=== PATIENT | male | born 1975 | race Caucasian/White ===

== ENCOUNTER 2018-01-21 12:28 | Emergency (ER) | payer BC ==
[2018-01-21] MEDS ORDERED: HYDROCODONE/APAP 7.5/325 MG TAB ONE (13:01)
--- NOTE | 2018-01-21 13:32 | RAD REPORT ---
EXAM DESCRIPTION: CT - [id number] - 01/21/2018 1:22 pm CLINICAL HISTORY: Trauma, head and neck injury. COMPARISON: None. TECHNIQUE: Axial 5 mm thick images of the head were obtained. Axial 2 mm thick images of the cervical spine were obtained with sagittal and coronal reconstruction images generated and reviewed. All CT scans are performed using dose optimization technique as appropriate and may include automated exposure control or mA/KV adjustment according to patient size. FINDINGS: CT HEAD WITHOUT CONTRAST: No acute hemorrhage, hydrocephalus or extra-axial collection is identified.No areas of brain edema or midline shift. The paranasal sinuses and mastoids are clear.The calvarium is intact. CT CERVICAL SPINE WITHOUT CONTRAST: No fracture or subluxation.No prevertebral soft tissues swelling is identified. IMPRESSION: No acute intracranial or cervical spine findings.
--- NOTE | 2018-01-21 14:00 | RAD REPORT ---
EXAM DESCRIPTION: RAD - Shoulder Left 2 View - 01/21/2018 1:45 pm CLINICAL HISTORY: Pain left shoulder. COMPARISON: None. FINDINGS: Mild arthritic changes are present. No acute fracture or dislocation seen. Mild subacromia l outlet narrowing is present.
[2018-01-21] MEDS ORDERED: KETOROLAC 30 MG/ML INJ ONE (14:17)
--- NOTE | 2018-01-21 14:19 | ER ---
Nurse's Notes [facility] Name: Toro Mcghee Age: 42 yrs Sex: Male : 1975 Arrival Date: 01/21/2018 Time: 12:31 Bed 20 Private MD: Yoan Vazquez Diagnosis: Other slipping, tripping and stumbling and falls;Hypertensive heart disease;Pain in left shoulder-from fall;Neck Pain from fall Presentation: 01/21 12:43 Presenting complaint: Patient states: pt has chronic emiliano shoulder pain, has been to see iw ortho in past, pt fell yesterday and aggravated shoulder pain, radiates to fingers, also has intermittent numbness to arms, also has headache and neck pain that's been worse after the fall, denies hitting head, fell forward onto outstretched arms, pt states he can't sleep, can't lay down. Transition of care: patient was not received from another setting of care. Onset of symptoms was December 2017. Initial Sepsis Screen: Does the patient meet any 2 criteria? No. Patient's initial sepsis screen is negative. Does the patient have a suspected source of infection? No. Patient's initial sepsis screen is negative. Care prior to arrival: None. 12:43 Method Of Arrival: Ambulatory iw 12:43 Acuity: GIGI 3 iw Triage Assessment: 13:10 Pain: Pain began Also complains of no other associated symptoms. iw 13:10 Headache History: Denies prior headaches. iw Historical: - Allergies: 12:48 NKA; iw - Home Meds: 12:48 Metoprolol Tartrate Oral [Active]; losartan Oral [Active]; Simvastatin Oral [Active]; iw - PMHx: 12:48 abdominal hernia; Hypertension; Hyperlipidemia; iw - PSHx: 12:48 Appendectomy; Tonsillectomy; iw - Immunization history:: Adult Immunizations unknown. - Social history:: Smoking status: unknown. Screenin:14 Abuse screen: Denies threats or abuse. Nutritional screening: No deficits noted. em Tuberculosis screening: No symptoms or risk factors identified. Fall Risk None identified. Assessment: 12:58 General: Appears in no apparent distress. uncomfortable, Behavior is calm, cooperative, em Reports having chronic shoulder problems, but fell yesterday, c/o neck pain that shoots down emiliano arms and into finger, denies hitting head or LOC. Pain: Complains of pain in neck Pain currently is 8 out of 10 on a pain scale. Quality of pain is described as sharp, shooting. Neuro: Level of Consciousness is awake, alert, obeys commands, Oriented to person, place, time, situation. Cardiovascular: Capillary refill < 3 seconds Patient's skin is warm and dry. Respiratory: Airway is patent Respiratory effort is even, unlabored, Respiratory pattern is regular, symmetrical. GI: Abdomen is flat. : No signs and/or symptoms were reported regarding the genitourinary system. EENT: No signs and/or symptoms were reported regarding the EENT system. Derm: Skin is intact, Skin is pink, warm \T\ dry. Musculoskeletal: Range of motion: intact in all extremities. Injury Description: fall injury. 13:10 Reassessment: Patient appears in no apparent distress at this time. I agree with above iw assessment by Cristopher Mcdonald LVN. 13:55 Reassessment: Patient appears in no apparent distress at this time. Patient and/or em family updated on plan of care and expected duration. Pain level reassessed. Patient is alert, oriented x 3, equal unlabored respirations, skin warm/dry/pink. Patient states feeling better. Patient states symptoms have improved. Vital Signs: 12:49 BP 158 / 115; Pulse 80; Resp 16; Temp 98.2; Pulse Ox 96% on R/A; Weight 145.15 kg; iw Height 5 ft. 11 in. (180.34 cm); Pain 10/10; 14:21 BP 135 / 104; Pulse 61; Resp 18; Pulse Ox 96% on R/A; Pain 5/10; em 12:49 Body Mass Index 44.63 (145.15 kg, 180.34 cm) iw ED Course: 12:31 Patient arrived in ED. rg4 12:31 Yoan Vazquez MD is Private Physician. rg4 12:46 Triage completed. iw 12:47 Jaspreet Miranda PA is PHCP. cp 12:47 Jaspreet Huber MD is Attending Physician. cp 12:49 Arm band placed on. iw 12:54 Isabel Palma, RN is Primary Nurse. iw 12:58 Patient has correct armband on for positive identification. iw 13:20 CT completed. Patient moved to CT via wheelchair. bq 13:22 CT Head C Spine: fall yesterday onto outstretched hands In Process Unspecified. EDMS 13:22 CT completed. Patient moved to radiology. bq 13:44 X-ray completed. Patient tolerated procedure well. kp1 13:45 XRAY Shoulder LEFT 2 view In Process Unspecified. EDMS 14:34 No provider procedures requiring assistance completed. Patient did not have IV access iw during this emergency room visit. Administered Medications: 13:07 Drug: Hydrocodone-Acetaminophen (7.5 mg-325 mg) 1 tabs Route: PO; em 14:06 Follow up: Response: No adverse reaction em 14:21 Drug: TORadol 60 mg Route: IM; Site: left deltoid; em Outcome: 14:18 Discharge ordered by MD. cp 14:34 Discharged to home ambulatory. iw 14:34 Condition: good 14:34 Discharge instructions given to patient, Instructed on discharge instructions, follow up and referral plans. medication usage, Demonstrated understanding of instructions, follow-up care, medications, Prescriptions given X 2. 14:35 Patient left the ED. iw Signatures: Dispatcher [employer] EDMS Ernestine Lawrence bq Cristopher Mcdonald, ELECTROLESS PLATER ELECTROLESS PLATER em Isabel Palma, RN RN iw Jaspreet Miranda PA PA Carrie Ashley rg4 Aliza Hakcett kp1 Corrections: (The following items were deleted from the chart) 13:22 13:[address]. bq bq 15:44 14:34 Discharge instructions given to patient, Instructed on discharge instructions, iw follow up and referral plans. medication usage, Demonstrated understanding of instructions, follow-up care, medications, Prescriptions given X iw
--- NOTE | 2018-01-21 14:19 | EDPHYS ---
Physician Documentation [facility] Name: Toro Mcghee Age: 42 yrs Sex: Male : 1975 Arrival Date: 01/21/2018 Time: 12:31 Bed 20 Private MD: Yoan Vazquez ED Physician Jaspreet Huber HPI: 01/21 12:54 This 42 yrs old Male presents to ER via Ambulatory with complaints of cp Headache, Neck Pain, <24hrs Old, Numbness Of Arm. 12:54 The patient complains of pain to the occipital area. The patient describes the headache cp as aching, constant. Onset: The symptoms/episode began/occurred yesterday. Associated signs and symptoms: Pertinent positives: left shoulder pain, neck pain. 12:54 Patient reports symptoms started after trip and fall yesterday after he fell forward cp landing on outstretched hands. Historical: - Allergies: 12:48 NKA; iw - Home Meds: 12:48 Metoprolol Tartrate Oral [Active]; losartan Oral [Active]; Simvastatin Oral [Active]; iw - PMHx: 12:48 abdominal hernia; Hypertension; Hyperlipidemia; iw - PSHx: 12:48 Appendectomy; Tonsillectomy; iw - Immunization history:: Adult Immunizations unknown. - Social history:: Smoking status: unknown. ROS: 13:00 Constitutional: Negative for body aches, chills, fever, poor PO intake. cp 13:00 Eyes: Negative for injury, pain, redness, and discharge. cp 13:00 ENT: Negative for drainage from ear(s), ear pain, sore throat, difficulty swallowing, difficulty handling secretions. 13:00 Neck: Positive for pain with movement, pain at rest, bony tenderness. 13:00 Cardiovascular: Negative for chest pain, edema, palpitations. 13:00 Respiratory: Negative for cough, shortness of breath, wheezing. 13:00 Abdomen/GI: Negative for abdominal pain, nausea, vomiting, and diarrhea, black/tarry stool, rectal bleeding. 13:00 Back: Negative for pain at rest, pain with movement, radiated pain. 13:00 MS/extremity: Positive for pain, tenderness, of the left shoulder, Negative for deformity, paresthesias. 13:00 Skin: Negative for cellulitis, rash. 13:00 Neuro: Positive for headache, Negative for altered mental status, dizziness, loss of consciousness, syncope, near syncope, weakness. 13:00 All other systems are negative. Exam: 13:10 Constitutional: The patient appears in no acute distress, alert, awake, cp non-diaphoretic, non-toxic, well developed, well nourished, obese. 13:10 Head/Face: Normocephalic, atraumatic. Eyes: Pupils equal round and reactive to light, cp extra-ocular motions intact. Lids and lashes normal. Conjunctiva and sclera are non-icteric and not injected. Cornea within normal limits. Periorbital areas with no swelling, redness, or edema. ENT: Nares patent. No nasal discharge, no septal abnormalities noted. Tympanic membranes are normal and external auditory canals are clear. Oropharynx with no redness, swelling, or masses, exudates, or evidence of obstruction, uvula midline. Mucous membranes moist. 13:10 Neck: C-spine: C-collar placed in ED, vertebral tenderness, that is mild, appreciated at C1 and C2, crepitus, is not appreciated, ROM/movement: limited range of motion, is not appreciated, nuchal rigidity, is not appreciated. 13:10 Chest/axilla: Inspection: normal, Palpation: is normal, no crepitus, no tenderness. 13:10 Cardiovascular: Rate: normal, Rhythm: regular, Pulses: Pulses are 2+ in right radial artery and left radial artery. Edema: is not appreciated, JVD: is not appreciated. 13:10 Respiratory: the patient does not display signs of respiratory distress, Respirations: cp normal, no use of accessory muscles, no retractions, no splinting, no tachypnea, labored breathing, is not present, Breath sounds: are clear throughout, no decreased breath sounds, no stridor, no wheezing. 13:10 Abdomen/GI: Inspection: obese Palpation: abdomen is soft and non-tender, in all cp quadrants, rebound tenderness, is not appreciated, voluntary guarding, is not appreciated, involuntary guarding, is not appreciated. 13:10 Back: pain, is absent, ROM is normal. 13:10 Musculoskeletal/extremity: Sensation intact. Joints: All joints are normal except the left shoulder displays painful range of motion, tenderness. 13:10 Skin: cellulitis, is not appreciated, no rash present. 13:10 Neuro: Orientation: to person, place \T\ time. Mentation: lucid, able to follow commands, Motor: moves all fours, strength is normal, Sensation: no obvious gross deficits. Vital Signs: 12:49 BP 158 / 115; Pulse 80; Resp 16; Temp 98.2; Pulse Ox 96% on R/A; Weight 145.15 kg; iw Height 5 ft. 11 in. (180.34 cm); Pain 10/10; 14:21 BP 135 / 104; Pulse 61; Resp 18; Pulse Ox 96% on R/A; Pain 5/10; em 12:49 Body Mass Index 44.63 (145.15 kg, 180.34 cm) iw MDM: 12:48 Patient medically screened. cp 13:00 Differential diagnosis: migraine, cervical fracture, bulging disc. cp 14:15 Data reviewed: vital signs, nurses notes, radiologic studies, CT scan, plain films, and cp as a result, I will discharge patient. 14:15 Test interpretation: by ED physician or midlevel provider: plain radiologic studies. cp Response to treatment: the patient's symptoms have markedly improved after treatment, and as a result, I will discharge patient. 01/21 12:53 Order name: CT Head C Spine: fall yesterday onto outstretched hands; Complete Time: cp 13:38 01/21 13:39 Interpretation: Reviewed report. cp 01/21 12:53 Order name: XRAY Shoulder LEFT 2 view; Complete Time: 14:02 cp 01/21 14:02 Interpretation: Report reviewed. cp Administered Medications: 13:07 Drug: Hydrocodone-Acetaminophen (7.5 mg-325 mg) 1 tabs Route: PO; em 14:06 Follow up: Response: No adverse reaction em 14:21 Drug: TORadol 60 mg Route: IM; Site: left deltoid; em Disposition: 01/21/18 14:18 Discharged to Home. Impression: Other slipping, tripping and stumbling and falls, Hypertensive heart disease, Pain in left shoulder - from fall, Neck Pain from fall. - Condition is Stable. - Discharge Instructions: Hypertension, Shoulder Pain, How to Take Your Blood Pressure, [id number], Managing Your High Blood Pressure. - Prescriptions for Naprosyn 500 mg Oral Tablet - take 1 tablet by ORAL route 2 times per day take with food; 20 tablet. Cyclobenzaprine 10 mg Oral Tablet - take 1 tablet by ORAL route every 8 hours As needed no driving while taking medication; 20 tablet. - Medication Reconciliation Form, Thank You Letter, Antibiotic Education, Prescription Opioid Use form. - Follow up: Private Physician; When: 2 - 3 days; Reason: Recheck today's complaints. - Problem is new. - Symptoms have improved. Addendum: 01/23/2018 08:52 Co-signature as Attending Physician, Jaspreet Huber MD I agree with the assessment and c noe plan of care. Signatures: Dispatcher [employer] Jaspreet Higgins MD MD cha Munoz, Edgar, PLANT SCIENCE PROFESSOR PLANT SCIENCE PROFESSOR Isabel North, RN RN Jaspreet Ornelas, PA PA cp
== END 2018-01-21 14:35 | disposition home or self-care (01) ==
LOC: ER 12:28
DX: M25.512 Pain in left shoulder (principal); I11.9 Hypertensive heart disease without heart failure; W01.0XXA Fall on same level from slipping, tripping and stumbling without subsequent striking against object, initial encounter; Y93.9 Activity, unspecified; Y92.9 Unspecified place or not applicable; I10 Essential (primary) hypertension; E78.5 Hyperlipidemia, unspecified
CPT/HCPCS: 70450; 72125; 96372; 99284

== ENCOUNTER 2018-04-24 18:29 | Emergency (ER) | payer BC ==
[2018-04-24 21:19] LABS: Urine Blood NEGATIVE (NEG); Urine Glucose NEGATIVE (NEG); Urine Protein NEGATIVE (NEG); Urine Specific Gravity 1.025 (1.005-1.030); Urine pH 5.5 (5.0-7.0)
[2018-04-24] MEDS ORDERED: NA CHLORIDE 0.9% 1,000 ML ONE (21:24)
[2018-04-24] MEDS ORDERED: PANTOPRAZOLE 40 MG INJ ONE (21:24)
[2018-04-24 21:27] LABS: Absolute Lymphocytes (CBC) 1.7 K/uL (0.7-4.9); Absolute Monocytes 0.8 K/uL (0.1-1.3); Absolute Neutrophil 7.3 K/uL (1.8-8.0); Basophils % 0.7 % (0-1.3); Eosinophils % 3.4 % (0-4.4); Hematocrit 46.7 % (39.6-49.0); Lymphocytes % 16.7 % (15.3-44.8); MCH 29.2 pg (27.0-35.0); MCV 85.7 fL (80-100); MPV 8.3 fL (7.6-11.3); Monocytes % 8.1 % (3.3-12.3); RBC Red Blood Cell Count 5.45 M/uL (4.33-5.43)
[2018-04-24 21:34] LABS: Urine Bacteria <20 /HPF (NONE SEEN); Urine Culture Reflex Order NOT NEEDED; Urine Mucus 2+ /HPF (NONE SEEN); Urine RBC <5 /HPF (NONE SEEN)
[2018-04-24 21:44] LABS: ALT/SGPT 25 U/L (12-78); AST/SGOT 15 U/L (15-37); Alkaline Phosphatase 79 U/L (45-117); BUN Blood Urea Nitrogen 15 mg/dL (7-18); Bicarbonate 29 mmol/L (21-32); Bilirubin Direct < 0.1 mg/dL (0-0.2); Bilirubin Total 0.4 mg/dL (0.2-1.0); Glucose Level 85 mg/dL (74-106); Lipase 144 U/L (73-393); Potassium 4.1 mmol/L (3.5-5.1); Sodium Level 140 mmol/L (136-145)
[2018-04-25] MEDS ORDERED: ACETAMINOPHEN 500 MG TAB ONE (00:34)
--- NOTE | 2018-04-25 01:21 | EDPHYS ---
Physician Documentation [facility] Name: Toro Mcghee Age: 42 yrs Sex: Male : 1975 Arrival Date: 04/24/2018 Time: 18:32 Bed 30 Private MD: Yoan Vazquez ED Physician Dick Fletcher HPI: 04/24 21:28 This 42 yrs old Male presents to ER via Ambulatory with complaints of Rectal wa Bleeding. 21:28 The patient presents to the emergency department with bleeding from the rectum/anus, wa that is moderate, states noticed blood in stool x 3 weeks. today, noted a large chunk in a pool of blood. admits to generalized weakness and dizziness. denies chest pain or SOB. admits to generalized abd pain. Onset: The symptoms/episode began/occurred gradually, 3 week(s) ago. Context: the patient has no known special context relating to the rectal area complaint(s). Modifying factors: The symptoms are alleviated by nothing, The symptoms are aggravated by bowel movement. Associate signs and symptoms: Pertinent positives: abdominal pain in the diffuse, dizziness, nausea and weakness. The patient has not experienced similar symptoms in the past. The patient has not recently seen a physician. take ASA daily. also takes ibuprofen as needed for HAs. Historical: - Allergies: 18:35 NKA; hj - Home Meds: 18:35 Metoprolol Tartrate Oral [Active]; losartan Oral [Active]; aspirin 81 mg Oral chew hj [Active]; Simvastatin Oral [Active]; - PMHx: 18:35 abdominal hernia; Hyperlipidemia; Hypertension; hj - PSHx: 18:35 Appendectomy; Tonsillectomy; hj - Immunization history:: Adult Immunizations up to date. - Social history:: Smoking status: Patient/guardian denies using tobacco, Patient/guardian denies using alcohol. - Ebola Screening: : Patient negative for fever greater than or equal to 101.5 degrees Fahrenheit, and additional compatible Ebola Virus Disease symptoms Patient denies exposure to infectious person Patient denies travel to an Ebola-affected area in the 21 days before illness onset. - Family history:: not pertinent. - Hospitalizations: : No recent hospitalization is reported. ROS: 21:31 Constitutional: Negative for fever, chills, and weight loss, Eyes: Negative for injury, wa pain, redness, and discharge, ENT: Negative for injury, pain, and discharge, Neck: Negative for injury, pain, and swelling, Cardiovascular: Negative for chest pain, palpitations, and edema, Respiratory: Negative for shortness of breath, cough, wheezing, and pleuritic chest pain, Back: Negative for injury and pain, : Negative for injury, bleeding, discharge, and swelling, MS/Extremity: Negative for injury and deformity, Skin: Negative for injury, rash, and discoloration. 21:31 Abdomen/GI: Positive for abdominal pain, nausea, rectal bleeding, Negative for vomiting. 21:31 Neuro: Positive for dizziness, weakness, Negative for altered mental status, gait disturbance, syncope. Exam: 21:31 Constitutional: This is a well developed, well nourished patient who is awake, alert, wa and in no acute distress. Head/Face: Normocephalic, atraumatic. Eyes: Pupils equal round and reactive to light, extra-ocular motions intact. Lids and lashes normal. Conjunctiva and sclera are non-icteric and not injected. Cornea within normal limits. Periorbital areas with no swelling, redness, or edema. ENT: Nares patent. No nasal discharge, no septal abnormalities noted. Tympanic membranes are normal and external auditory canals are clear. Oropharynx with no redness, swelling, or masses, exudates, or evidence of obstruction, uvula midline. Mucous membranes moist. Neck: Trachea midline, no thyromegaly or masses palpated, and no cervical lymphadenopathy. Supple, full range of motion without nuchal rigidity, or vertebral point tenderness. No Meningismus. Chest/axilla: Normal chest wall appearance and motion. Nontender with no deformity. No lesions are appreciated. Cardiovascular: Regular rate and rhythm with a normal S1 and S2. No gallops, murmurs, or rubs. Normal PMI, no JVD. No pulse deficits. Respiratory: Lungs have equal breath sounds bilaterally, clear to auscultation and percussion. No rales, rhonchi or wheezes noted. No increased work of breathing, no retractions or nasal flaring. Back: No spinal tenderness. No costovertebral tenderness. Full range of motion. Skin: Warm, dry with normal turgor. Normal color with no rashes, no lesions, and no evidence of cellulitis. MS/ Extremity: Pulses equal, no cyanosis. Neurovascular intact. Full, normal range of motion. Neuro: Awake and alert, GCS 15, oriented to person, place, time, and situation. Cranial nerves II-XII grossly intact. Motor strength 5/5 in all extremities. Sensory grossly intact. Cerebellar exam normal. Normal gait. Psych: Awake, alert, with orientation to person, place and time. Behavior, mood, and affect are within normal limits. 21:40 Abdomen/GI: Inspection: obese Bowel sounds: normal, in all quadrants, Palpation: soft, wa mild abdominal tenderness, in all quadrants, Rectal exam: rectal tone normal, Stool: guaiac negative, loose, hemorrhoid(s), are not appreciated, the exam is chaperoned by the nurse. Vital Signs: 18:37 BP 138 / 108; Pulse 115; Resp 18; Temp 98.3(O); Pulse Ox 96% on R/A; Weight 145.15 kg; hj Height 5 ft. 11 in. (180.34 cm); Pain 5/10; 21:54 BP 153 / 106; Pulse 68; Resp 18; Pulse Ox 98% on R/A; Pain 2/10; mg2 23:26 BP 144 / 104; Pulse 65; Resp 18; Pulse Ox 95% on R/A; Pain 2/10; mg2 04/25 00:11 BP 132 / 97; Pulse 67; Resp 18; Pulse Ox 95% on R/A; mg2 04/24 18:37 Body Mass Index 44.63 (145.15 kg, 180.34 cm) hj MDM: 04/24 20:30 Patient medically screened. mn 21:32 Differential diagnosis: GI bleed. will eval. mn 04/25 01:18 Data reviewed: vital signs, nurses notes, lab test result(s), radiologic studies. Test wa interpretation: by ED physician or midlevel provider: labs noted within nml limits. no anemia. CT scan abd/pelvis: no acute process in abd and pelvis. Response to treatment: the patient's symptoms have markedly improved after treatment. ED course: suspect distal issue. labs nml. stool yellow. guaiac negative. will d/c with abx. will refer to GI . 01:22 ED course: did discuss incidental lung findings and need to f/u with pt. 04/24 21:08 Order name: Basic Metabolic Panel 04/24 21:08 Order name: CBC with Diff; Complete Time: 01:14 mn 04/24 21:08 Order name: Creatinine for Radiology; Complete Time: 01:14 mn 04/24 21:08 Order name: Hepatic Function; Complete Time: 01:14 mn 04/24 21:08 Order name: Lipase; Complete Time: 01:14 mn 04/24 21:08 Order name: Urine Microscopic Only; Complete Time: 01:15 mn 04/24 21:09 Order name: Basic Metabolic Panel; Complete Time: 01:14 EDND 04/24 21:09 Order name: CT Abd/Pelvis - W/Contrast mn 04/24 21:09 Order name: Abo/rh Typing; Complete Time: 01:15 mn 04/24 21:10 Order name: Occult Blood mn 04/24 21:15 Order name: Urine Dipstick--Ancillary (enter results); Complete Time: 01:15 2 04/24 21:59 Order name: Antibody Screen; Complete Time: 00:05 [facility] 04/24 21:08 Order name: IV Saline Lock; Complete Time: 21:15 mn 04/24 21:08 Order name: Labs collected and sent; Complete Time: 21:15 mn 04/24 21:08 Order name: Urine Dipstick-Ancillary (obtain specimen); Complete Time: 21:15 mn Administered Medications: 04/24 21:23 Drug: ProTONIX 40 mg Route: IVP; Site: right antecubital; mg2 23:27 Follow up: Response: No adverse reaction; Pain is decreased mg2 21:23 Drug: NS 0.9% 1000 ml Route: IV; Rate: 1 bolus; Site: right antecubital; mg2 23:27 Follow up: IV Status: Completed infusion mg2 04/25 00:32 Drug: Tylenol 1000 mg Route: PO; mg2 01:33 Follow up: Response: No adverse reaction; Pain is decreased mg2 Point of Care Testing: Guaiac: 04/24 21:56 Stool Guaiac: Negative; Stool Hemoccult Control: Pass; mg2 Disposition: 04/25/18 01:20 Discharged to Home. Impression: Acute Rectal Bleeding. - Condition is Stable. - Discharge Instructions: Rectal Bleeding, [id number]. - Prescriptions for Flagyl 250 mg Oral Tablet - take 1 tablet by ORAL route every 8 hours for 7 days; 21 tablet. Zofran 4 mg Oral Tablet - take 1 tablet by ORAL route every 12 hours As needed; 20 tablet. Cipro 500 mg Oral Tablet - take 1 tablet by ORAL route every 12 hours for 7 days; 14 tablet. - Medication Reconciliation Form, Thank You Letter, Antibiotic Education, Prescription Opioid Use form. - Follow up: Dick Swartz MD; When: 2 - 3 days; Reason: Recheck today's complaints. - Problem is new. - Symptoms have improved. - Notes: follow up with Dr. Swartz for further evaluation of bloody stools. return here immediately for rapidly worsening concerns Signatures: Dispatcher [employer] EDMS Mayo Vences RN RN hj Dick Fletcher MD MD mn Nael Terry RN RN mg2 Corrections: (The following items were deleted from the chart) 04/25 01:34 01:20 04/25/2018 01:20 Discharged to Home. Impression: Acute Rectal Bleeding. Condition mg2 is Stable. Forms are Medication Reconciliation Form, Thank You Letter, Antibiotic Education, Prescription Opioid Use. Follow up: Dick Swartz; When: 2 - 3 days; Reason: Recheck today's complaints. Problem is new. Symptoms have improved. mauro
--- NOTE | 2018-04-25 01:21 | ER ---
Nurse's Notes [facility] Name: Toro Mcghee Age: 42 yrs Sex: Male : 1975 Arrival Date: 04/24/2018 Time: 18:32 Bed 30 Private MD: Yoan Vazquez Diagnosis: Acute Rectal Bleeding Presentation: 04/24 18:33 Presenting complaint: Patient states: i have been bleeding for a couple of weeks ago, i hj saw huge fresh blood this morning; reports abdominal pain nausea and vomiting; denies fever and chills; reports headaches;. Transition of care: patient was not received from another setting of care. Onset of symptoms was April 24, 2018. Risk Assessment: Do you want to hurt yourself or someone else? Patient reports no desire to harm self or others. Initial Sepsis Screen: Does the patient meet any 2 criteria? No. Patient's initial sepsis screen is negative. Does the patient have a suspected source of infection? No. Patient's initial sepsis screen is negative. Care prior to arrival: None. 18:33 Method Of Arrival: Ambulatory 18:33 Acuity: GIGI 3 Triage Assessment: 18:36 General: Appears in no apparent distress. uncomfortable, Behavior is calm, cooperative, hj appropriate for age. Pain: Complains of pain in abdomen. Historical: - Allergies: 18:35 NKA; hj - Home Meds: 18:35 Metoprolol Tartrate Oral [Active]; losartan Oral [Active]; aspirin 81 mg Oral chew hj [Active]; Simvastatin Oral [Active]; - PMHx: 18:35 abdominal hernia; Hyperlipidemia; Hypertension; hj - PSHx: 18:35 Appendectomy; Tonsillectomy; hj - Immunization history:: Adult Immunizations up to date. - Social history:: Smoking status: Patient/guardian denies using tobacco, Patient/guardian denies using alcohol. - Ebola Screening: : Patient negative for fever greater than or equal to 101.5 degrees Fahrenheit, and additional compatible Ebola Virus Disease symptoms Patient denies exposure to infectious person Patient denies travel to an Ebola-affected area in the 21 days before illness onset. - Family history:: not pertinent. - Hospitalizations: : No recent hospitalization is reported. Screenin:36 Abuse screen: Denies threats or abuse. Denies injuries from another. Nutritional hj screening: No deficits noted. Tuberculosis screening: No symptoms or risk factors identified. Fall Risk None identified. Assessment: 20:53 General: Appears in no apparent distress. comfortable, Behavior is calm, cooperative. mg2 Pain: Complains of pain in abdomen Pain does not radiate. Pain currently is 5 out of 10 on a pain scale. Quality of pain is described as aching, Pain began gradually, Is intermittent. Neuro: Level of Consciousness is awake, alert, obeys commands, Oriented to person, place, time, situation. Cardiovascular: Capillary refill < 3 seconds Patient's skin is warm and dry. Respiratory: Airway is patent Respiratory effort is even, unlabored. GI: Abdomen is non-distended, Reports lower abdominal pain, rectal bleeding. : No signs and/or symptoms were reported regarding the genitourinary system. EENT: No signs and/or symptoms were reported regarding the EENT system. Derm: Skin is intact, Skin is pink, warm \T\ dry. normal. Musculoskeletal: No signs and/or symptoms reported regarding the musculoskeletal system. 21:55 Reassessment: Patient appears in no apparent distress at this time. Patient and/or mg2 family updated on plan of care and expected duration. Pain level reassessed. Patient is alert, oriented x 3, equal unlabored respirations, skin warm/dry/pink. 04/25 00:11 Reassessment: Patient appears in no apparent distress at this time. Patient and/or mg2 family updated on plan of care and expected duration. Pain level reassessed. Patient is alert, oriented x 3, equal unlabored respirations, skin warm/dry/pink. Vital Signs: 04/24 18:37 BP 138 / 108; Pulse 115; Resp 18; Temp 98.3(O); Pulse Ox 96% on R/A; Weight 145.15 kg; hj Height 5 ft. 11 in. (180.34 cm); Pain 5/10; 21:54 BP 153 / 106; Pulse 68; Resp 18; Pulse Ox 98% on R/A; Pain 2/10; mg2 23:26 BP 144 / 104; Pulse 65; Resp 18; Pulse Ox 95% on R/A; Pain 2/10; mg2 04/25 00:11 BP 132 / 97; Pulse 67; Resp 18; Pulse Ox 95% on R/A; mg2 04/24 18:37 Body Mass Index 44.63 (145.15 kg, 180.34 cm) ED Course: 04/24 18:32 Patient arrived in ED. rg4 18:33 Yoan Vazquez MD is Private Physician. rg4 18:35 Triage completed. hj 18:36 Arm band placed on left wrist. hj 18:36 Patient has correct armband on for positive identification. Placed in gown. Bed in low hj position. Call light in reach. Side rails up X 1. 20:30 Dick Fletcher MD is Attending Physician. wa 20:42 Nael Terry RN is Primary Nurse. mg2 20:52 Inserted saline lock: 20 gauge in right antecubital area, using aseptic technique. mg2 Blood collected. 21:55 Served as a cellular plastics cutter during rectal exam. mg2 22:55 CT completed. Patient moved to CT via wheelchair. Patient moved back from CT. kw1 23:01 CT Abd/Pelvis - W/Contrast In Process Unspecified. EDMD 04/25 01:20 Dick Swartz MD is Referral Physician. wa 01:33 IV discontinued, intact, bleeding controlled, No redness/swelling at site. Pressure mg2 dressing applied. Administered Medications: 04/24 21:23 Drug: ProTONIX 40 mg Route: IVP; Site: right antecubital; mg2 23:27 Follow up: Response: No adverse reaction; Pain is decreased mg2 21:23 Drug: NS 0.9% 1000 ml Route: IV; Rate: 1 bolus; Site: right antecubital; mg2 23:27 Follow up: IV Status: Completed infusion mg2 04/25 00:32 Drug: Tylenol 1000 mg Route: PO; mg2 01:33 Follow up: Response: No adverse reaction; Pain is decreased mg2 Point of Care Testing: Guaiac: 04/24 21:56 Stool Guaiac: Negative; Stool Hemoccult Control: Pass; mg2 Outcome: 04/25 01:20 Discharge ordered by . wa 01:33 Discharged to home ambulatory. mg2 01:33 Condition: good 01:33 Discharge instructions given to patient, Instructed on discharge instructions, follow up and referral plans. medication usage, Demonstrated understanding of instructions, follow-up care, medications, Prescriptions given X 3. 01:34 Patient left the ED. mg2 Signatures: Dispatcher [employer] EDMD Mayo Vences RN RN hj Garcia, Rubi rg4 Dick Fletcher MD MD vt Yasmin Bustillo kw1 Nael Terry, RN RN mg2 Corrections: (The following items were deleted from the chart) 04/24 18:36 18:33 Presenting complaint: Patient states: i have been bleeding for a couple of weeks hj ago, i saw huge fresh blood this morning; reports nausea and vomiting; denies fever and chills; reports headaches; hj 18:39 18:37 Pulse 115bpm; Resp 18bpm; Pulse Ox 96% RA; Temp 98.3F Oral; 145.15 kg; Height 5 hj ft. 11 in.; BMI: 44.6; Pain 5/; hj
--- NOTE | 2018-04-25 08:45 | RAD REPORT ---
EXAM DESCRIPTION: CTAbdomen Pelvis W Contrast - 04/24/2018 11:01 pm CLINICAL HISTORY: Abdominal pain. abd pain. rectal bleeding COMPARISON: No comparisons TECHNIQUE: Biphasic CT imaging of the abdomen and pelvis was performed with 100 ml non-ionic IV cont rast. All CT scans are performed using dose optimization technique as appropriate and may include automated exposure control or mA/KV adjustment according to patient size. FINDINGS: The small juxtapleural nodules are seen in the right lower lobe. An oblong nodule is prese nt in the left lower lobe laterally measuring 7 x 4 mm. The liver, spleen, pancreas, adrenal glands and kidneys are within normal limits. [address] mm left renal [address]. No bowel obstruction, free air, free fluid or abscess. Small fat containing umbilical hernia. The saray endix is normal. No evidence of significant lymphadenopathy. No suspicious bony findings. IMPRESSION: No acute intra-abdominal or pelvic finding. 7 x 4 mm noncalcified nodule left lung base. Follow-up dedicated CT chest would be recommended for fu ll assessment of the lung quintero.
== END 2018-04-25 01:34 | disposition home or self-care (01) ==
LOC: ER 18:29
DX: K62.5 Hemorrhage of anus and rectum (principal); E78.5 Hyperlipidemia, unspecified
CPT/HCPCS: 36415; 74177; 80048; 80076; 81003; 81015; 83690; 85025; 86850; 86900; 86901; 96361; 96374; 99284; C9113; J7030; Q9967

== ENCOUNTER 2019-01-23 17:30 | Observation (INO) | payer BC ==
--- NOTE | 2019-01-23 18:12 | RAD REPORT ---
EXAM DESCRIPTION: Jaison Single View01/23/2019 6:02 pm CLINICAL HISTORY: Chest pain COMPARISON: November 2017 FINDINGS: The lungs appear clear of acute infiltrate. The heart is mildly enlarged IMPRESSION: No acute abnormalities displayed
[2019-01-23 18:14] LABS: Protime INR 1.07
--- NOTE | 2019-01-23 18:15 | RAD REPORT ---
EXAM DESCRIPTION: CT - Head Brain Wo Cont - 01/23/2019 5:53 pm CLINICAL HISTORY: Headache COMPARISON: 2017 TECHNIQUE: Computed axial tomography of the head was obtained. IV contrast was not requested. All CT scans are performed using dose optimization technique as appropriate and may include automated exposure control or mA/KV adjustment according to patient size. FINDINGS: An intracranial bleed is not seen . The ventricles are normal in caliber. No extra-axial fluid collection is noted. Fluid within the sinuses/ mastoids is not seen. Mild chronic sinusitis present IMPRESSION: No acute intracranial abnormality is seen. If patient's symptoms persist MRI of the bra in would be recommended.
[2019-01-23 18:20] LABS: Absolute Lymphocytes (CBC) 1.9 K/uL (0.7-4.9); Absolute Monocytes 0.8 K/uL (0.1-1.3); Absolute Neutrophil 7.3 K/uL (1.8-8.0); Basophils % 0.7 % (0-1.3); Eosinophils % 2.4 % (0-4.4); Hematocrit 48.1 % (39.6-49.0); MPV 8.4 fL (7.6-11.3); Monocytes % 7.9 % (3.3-12.3); RBC Red Blood Cell Count 5.67 M/uL (4.33-5.43)
[2019-01-23] MEDS ORDERED: ONDANSETRON 4 MG/2 ML VIAL ONE (18:32)
[2019-01-23] MEDS ORDERED: MORPHINE 2 MG/ML SYR ONE (18:32)
[2019-01-23 19:15] LABS: ALT/SGPT 25 U/L (12-78); AST/SGOT 13 U/L (15-37); Albumin 3.9 g/dL (3.4-5.0); Alkaline Phosphatase 77 U/L (45-117); BUN Blood Urea Nitrogen 13 mg/dL (7-18); Bicarbonate 28 mmol/L (21-32); Bilirubin Direct < 0.1 mg/dL (0-0.2); Bilirubin Total 0.4 mg/dL (0.2-1.0); Glucose Level 125 mg/dL (74-106); Magnesium 2.3 mg/dL (1.8-2.4); NT PRO-BNP 41 pg/mL (<125); Potassium 3.6 mmol/L (3.5-5.1); Protein, Total 7.4 g/dL (6.4-8.2); Sodium Level 138 mmol/L (136-145); Troponin (Emerg Dept Use Only) < 0.02 ng/mL (0.0-0.045)
--- NOTE | 2019-01-23 19:44 | EDPHYS ---
Physician Documentation [facility] Name: Toro Mcghee Age: 43 yrs Sex: Male : 1975 Arrival Date: 01/23/2019 Time: 17:32 Bed 30 Private MD: Gomez Hoffman R ED Physician Gaetano Reno HPI: 01/23 17:55 This 43 yrs old Male presents to ER via Ambulatory with complaints of Chest jmm Pain, Headache. 17:55 The patient or guardian reports chest pain that is located primarily in the substernal jm area. Onset: gradually, 5 hour(s) ago. The pain does not radiate. Associated signs and symptoms:. This is a 43 year old male with a history of hlp, htn that presents to the ED with complaints of headache, right sided neck pain beginning approx 5 hours ago that is similar to previous episodes. Patient became concerned when he developed chest pain approx 10 minutes after. Patient states the pain has decreased in intensity since. . Historical: - Allergies: 17:37 NKA; tw2 - Home Meds: 17:37 Simvastatin Oral [Active]; losartan Oral [Active]; aspirin 81 mg Oral chew [Active]; tw2 Metoprolol Tartrate Oral [Active]; - PMHx: 17:37 abdominal hernia; Hyperlipidemia; Hypertension; tw2 - PSHx: 17:37 Appendectomy; Tonsillectomy; tw2 - Immunization history:: Adult Immunizations. - Social history:: Smoking status: . - Ebola Screening: : Patient denies travel to an Ebola-affected area in the 21 days before illness onset. ROS: 17:55 Constitutional: Negative for fever, chills, and weight loss. jmm 17:55 Neck: Positive for pain with movement. 17:55 Cardiovascular: Positive for chest pain. 17:55 Neuro: Positive for headache. 17:55 All other systems are negative. Exam: 17:55 Constitutional: This is a well developed, well nourished patient who is awake, alert, jmm and in no acute distress. Head/Face: atraumatic. Eyes: EOMI, no conjunctival erythema appreciated ENT: Moist Mucus Membranes Neck: Trachea midline, Supple Chest/axilla: Normal chest wall appearance and motion. Cardiovascular: Regular rate and rhythm. No edema appreciated Respiratory: Normal respirations, no respiratory distress appreciated Abdomen/GI: Non distended, soft Back: Normal ROM Skin: General appearance color normal MS/ Extremity: Moves all extremities, no obvious deformities appreciated, no edema noted to the lower extremities Neuro: Awake and alert, normal gait Psych: Behavior is normal, Mood is normal, Patient is cooperative and pleasant 17:55 Neck: right sided paraspinal pain on palpation. 19:38 ECG was reviewed by the Attending Physician. [facility] Vital Signs: 17:36 BP 155 / 120; Pulse 94; Resp 18; Temp 97.9(TE); Pulse Ox 97% on R/A; Weight 140.61 kg tw2 (R); Height 6 ft. 0 in. (182.88 cm) (R); Pain 10/10; 18:16 BP 151 / 104 LA Supine; Pulse 90; Resp 19 S; Pulse Ox 94% on R/A; rv 18:30 BP 135 / 96; Pulse 79; Resp 17; Pulse Ox 92% on R/A; rv 18:36 Pulse Ox 96% on 2 lpm NC; rv 21:13 BP 135 / 101; Pulse 62; Resp 16; Pulse Ox 95% ; rv 17:36 Body Mass Index 42.04 (140.61 kg, 182.88 cm) tw2 MDM: 17:50 Patient medically screened. [facility] 19:42 The patient was given aspirin in the Emergency Department. Data reviewed: vital signs, [facility] nurses notes, lab test result(s), EKG, radiologic studies, CT scan, plain films. ED course: I discussed the patient with Dr. Hoffman whom accepted admission. . ED course: Patient continues to have Chest Pain in the ED. Will admit for observation. . 19:49 ED course: Headache is similar in character to previous headaches. Neck is supple. [facility] Patient is afebrile and non toxic in appearance. I do not suspect SAH or meningitis. . 01/23 17:51 Order name: Basic Metabolic Panel; Complete Time: 19:22 [facility] 01/23 17:51 Order name: CBC with Diff; Complete Time: 18:22 [facility] 01/23 17:51 Order name: LFT's; Complete Time: 19:22 [facility] 01/23 17:51 Order name: Magnesium; Complete Time: 19:22 [facility] 01/23 17:51 Order name: NT PRO-BNP; Complete Time: 19:22 [facility] 01/23 17:51 Order name: PT-INR; Complete Time: 18:20 [facility] 01/23 17:51 Order name: Troponin (emerg Dept Use Only); Complete Time: 19:22 [facility] 01/23 19:49 Order name: Basic Metabolic Panel [facility] 01/23 19:49 Order name: Basic Metabolic Panel [facility] 01/23 19:49 Order name: CBC with Automated Diff [facility] 01/23 19:49 Order name: CBC with Automated Diff [facility] 01/23 19:49 Order name: Troponin I [facility] 01/23 19:49 Order name: Troponin I [facility] 01/23 19:50 Order name: Troponin I [facility] 01/23 17:41 Order name: CT Head Brain wo Cont; Complete Time: 18:20 [facility] 01/23 17:51 Order name: XRAY Chest (1 view); Complete Time: 18:20 [facility] 01/23 17:51 Order name: EKG; Complete Time: 17:52 [facility] 01/23 17:51 Order name: Cardiac monitoring; Complete Time: 18:15 [facility] 01/23 17:51 Order name: EKG - Nurse/Tech; Complete Time: 18:15 [facility] 01/23 17:51 Order name: IV Saline Lock; Complete Time: 18:15 [facility] 01/23 17:51 Order name: Labs collected and sent; Complete Time: 18:15 [facility] 01/23 19:49 Order name: CONS Physician Consult [facility] 01/23 19:49 Order name: EKG Electrocardiogram [facility] 01/23 19:49 Order name: EKG Electrocardiogram [facility] 01/23 19:49 Order name: EKG Electrocardiogram [facility] 01/23 19:49 Order name: EKG Electrocardiogram [facility] 01/23 17:51 Order name: O2 Per Protocol; Complete Time: 18:15 [facility] 01/23 17:51 Order name: O2 Sat Monitoring; Complete Time: 18:15 [facility] 01/23 18:23 Order name: Labs - recollect needed: chemistry; Complete Time: 18:32 sv EC:38 Rate is 91 beats/min. Rhythm is regular. QRS [place] is Normal. DE interval is normal. QRS jmm interval is normal. QT interval is normal. No Q waves. T waves are Normal. No ST changes noted. Administered Medications: 18:23 Drug: morphine 2 mg Route: IVP; Site: right antecubital; rv 19:58 Follow up: Response: Pain is decreased rv 18:23 Drug: Zofran 4 mg Route: IVP; Site: right antecubital; rv 19:57 Follow up: Response: No adverse reaction rv 19:46 Drug: Aspirin Chewable Tablet 324 mg Route: PO; rv 21:16 Follow up: Response: No adverse reaction; Pain is decreased rv 19:57 Drug: morphine 4 mg Route: IVP; Site: right antecubital; rv 21:21 Follow up: Response: Pain is decreased rv Disposition: 21:50 Co-signature as Attending Physician, Gaetano Reno MD. Disposition: 01/23/19 19:43 Hospitalization ordered by Gomez Hoffman for Observation. Preliminary diagnosis is Chest pain, unspecified. - Bed requested for Telemetry/MedSurg (observation). - Status is Observation. rv - Condition is Stable. - Problem is new. - Symptoms have improved. UTI on Admission? No Signatures: Dispatcher [employer] EDPR Lin Mclean, RN RN Keiko Puente RN RN Justin Lewis PA PA Desiree Ferrari RN RN 2 Gaetano Reno MD MD Nick Conrad RN RN rv Corrections: (The following items were deleted from the chart) 20:26 19:43 Hospitalization Ordered by Gomez Hoffman MD for Observation. Preliminary diagnosis mw is Chest pain, unspecified. Bed requested for Telemetry/MedSurg (observation). Status is Observation. Condition is Stable. Problem is new. Symptoms have improved. UTI on Admission? No. [facility] 21:15 20:26 01/23/2019 19:43 Hospitalization Ordered by Gomez Hoffman MD for Observation. rv Preliminary diagnosis is Chest pain, unspecified. Bed requested for Telemetry/MedSurg (observation). Status is Observation. Condition is Stable. Problem is new. Symptoms have improved. UTI on Admission? No. mw
--- NOTE | 2019-01-23 19:44 | ER ---
Nurse's Notes [facility] Name: Toro Mcghee Age: 43 yrs Sex: Male : 1975 Arrival Date: 01/23/2019 Time: 17:32 Bed 30 Private MD: Gomez Hoffman R Diagnosis: Chest pain, unspecified Presentation: 01/23 17:32 Presenting complaint: Patient states: about noon my head and neck started hurting then tw2 my chest started hurting, then i got dizzy, i have high blood pressure and i took my medicine today. Transition of care: patient was not received from another setting of care. Onset of symptoms was January 23, 2019. Risk Assessment: Do you want to hurt yourself or someone else? Patient reports no desire to harm self or others. Initial Sepsis Screen: Does the patient meet any 2 criteria? No. Patient's initial sepsis screen is negative. Does the patient have a suspected source of infection? No. Patient's initial sepsis screen is negative. Care prior to arrival: None. EKG paged to exam room at this time. 17:32 Method Of Arrival: Ambulatory tw2 17:36 Acuity: GIGI 2 tw2 Triage Assessment: 17:36 General: Appears uncomfortable, obese, unkempt, Behavior is anxious. Pain: Complains of tw2 pain in head and chest. Cardiovascular: Reports chest pain. Historical: - Allergies: 17:37 NKA; tw2 - Home Meds: 17:37 Simvastatin Oral [Active]; losartan Oral [Active]; aspirin 81 mg Oral chew [Active]; tw2 Metoprolol Tartrate Oral [Active]; - PMHx: 17:37 abdominal hernia; Hyperlipidemia; Hypertension; tw2 - PSHx: 17:37 Appendectomy; Tonsillectomy; tw2 - Immunization history:: Adult Immunizations. - Social history:: Smoking status: . - Ebola Screening: : Patient denies travel to an Ebola-affected area in the 21 days before illness onset. Screenin:51 Abuse screen: Denies threats or abuse. Denies injuries from another. Nutritional rv screening: No deficits noted. Tuberculosis screening: No symptoms or risk factors identified. Fall Risk None identified. Assessment: 17:49 General: Appears in no apparent distress. uncomfortable, Behavior is calm, cooperative, rv Reports. Pain: Complains of pain in head and chest Pain does not radiate. Pain began today. Neuro: Reports headache that is the "worst ever", since today. Cardiovascular: Capillary refill < 3 seconds Rhythm is regular. Respiratory: Airway is patent. GI: No signs and/or symptoms were reported involving the gastrointestinal system. : No signs and/or symptoms were reported regarding the genitourinary system. EENT: No signs and/or symptoms were reported regarding the EENT system. Derm: Skin is intact. Musculoskeletal: No signs and/or symptoms reported regarding the musculoskeletal system. Vital Signs: 17:36 BP 155 / 120; Pulse 94; Resp 18; Temp 97.9(TE); Pulse Ox 97% on R/A; Weight 140.61 kg tw2 (R); Height 6 ft. 0 in. (182.88 cm) (R); Pain 10/10; 18:16 BP 151 / 104 LA Supine; Pulse 90; Resp 19 S; Pulse Ox 94% on R/A; rv 18:30 BP 135 / 96; Pulse 79; Resp 17; Pulse Ox 92% on R/A; rv 18:36 Pulse Ox 96% on 2 lpm NC; rv 21:13 BP 135 / 101; Pulse 62; Resp 16; Pulse Ox 95% ; rv 17:36 Body Mass Index 42.04 (140.61 kg, 182.88 cm) tw2 ED Course: 17:32 Patient arrived in ED. mr 17:32 Gomez Hoffman MD is Private Physician. mr 17:32 Nick Conrad, RN is Primary Nurse. rv 17:36 Triage completed. tw2 17:36 Arm band placed on. tw2 17:43 Justin Lewis PA is PHCP. [facility] 17:43 Gaetano Reno MD is Attending Physician. m 17:[address] vm2 17:48 Inserted saline lock: 20 gauge in right antecubital area, using aseptic technique. rv Blood collected. 17:53 CT completed. Patient moved back from CT. vm2 17:54 CT Head Brain wo Cont In Process Unspecified. EDMS 18:00 X-ray completed. Patient tolerated procedure well. Patient moved back from radiology. mh1 18:00 Patient has correct armband on for positive identification. Placed in gown. Bed in low rv position. Call light in reach. Side rails up X 1. supervisor photostat on. Pulse ox on. NIBP on. 18:01 XRAY Chest (1 view) In Process Unspecified. EDMS 19:43 Gomez Hoffman MD is Hospitalizing Provider. barbara 21:14 No provider procedures requiring assistance completed. Patient admitted, IV remains in rv place. Patient maintains SpO2 saturation greater than 95% on room air. Administered Medications: 18:23 Drug: morphine 2 mg Route: IVP; Site: right antecubital; rv 19:58 Follow up: Response: Pain is decreased rv 18:23 Drug: Zofran 4 mg Route: IVP; Site: right antecubital; rv 19:57 Follow up: Response: No adverse reaction rv 19:46 Drug: Aspirin Chewable Tablet 324 mg Route: PO; rv 21:16 Follow up: Response: No adverse reaction; Pain is decreased rv 19:57 Drug: morphine 4 mg Route: IVP; Site: right antecubital; rv 21:21 Follow up: Response: Pain is decreased rv Outcome: 19:43 Decision to Hospitalize by Provider. jmm 21:15 Admitted to Tele accompanied by tech, via wheelchair, room 427, with chart, Report rv called to PATY KUMAR 21:15 Condition: good 21:15 Instructed on the need for admit, Demonstrated understanding of instructions. 21:15 Patient left the ED. rv Signatures: Dispatcher [employer] EDMS Justin Lewis PA PA monique AvinaCatherine Keiko Trinh 1 Desiree Lynne RN RN 2 Kaycee Olivas [facility] Nick Conrad RN RN rv Corrections: (The following items were deleted from the chart) 17:36 17:32 Acuity: GIGI 3 tw2 tw2
[2019-01-23] MEDS ORDERED: ACETAMINOPHEN 500 MG TAB PO PRN (19:48)
[2019-01-23] MEDS ORDERED: ASPIRIN 81 MG CHEWABLE TABLET ONE (19:58)
[2019-01-23] MEDS ORDERED: MORPHINE 4 MG/ML SYR ONE (20:08)
--- NOTE | 2019-01-23 21:38 | EKG ---
Test Date: 2019-01-23 Test Time: 17:38:54 Utility Hand: J CARLOS MEASUREMENT RESULTS: Intervals: Rate: 91 IN: 138 QRSD: 96 QT: 360 QTc: 442 [place]: P: 37 IN: 138 QRS: 21 T: 43 INTERPRETIVE STATEMENTS: Normal sinus rhythm Normal ECG Compared to ECG 01/29/2017 06:16:12 Sinus bradycardia no longer present Electronically Signed On 01-23-19 21:38:03 CDT by Jose Roberto Bravo
[2019-01-23 23:27] LABS: Urine Appearance CLEAR; Urine Bilirubin NEGATIVE (NEG); Urine Blood NEGATIVE (NEG); Urine Color YELLOW; Urine Glucose NEGATIVE (NEG); Urine Protein NEGATIVE (NEG); Urine Urobilinogen 0.2 mg/dL (0.2-1.0)
[2019-01-23 23:31] VITALS: BMI 43.4
[2019-01-23 23:33] LABS: Urine Microscopic Reflex NO UMIC
[2019-01-24] MEDS: ASPIRIN EC 81 MG TAB PO SCH (08:59)
[2019-01-24] MEDS ORDERED: TRAMADOL HCL 50 MG TAB PO PRN (11:50)
[2019-01-24] MEDS: IRBESARTAN 150 MG TAB PO SCH (14:35)
--- NOTE | 2019-01-24 17:36 | ECHO ---
HEIGHT: 6 ft 0 in WEIGHT: 320 lb 6.4 oz DATE OF STUDY: 01/24/[address]: Ralf Hudson MD 2-DIMENSIONAL: YES M.MODE: YES DOPPLER: YES COLOR FLOW: YES TDS: YES PORTABLE: DEFINITY: BUBBLE STUDY: DIAGNOSIS: CHEST PAIN CARDIAC HISTORY: CATHERIZATION: NO SURGERY: NO PROSTHETIC VALVE: NO PACEMAKER: NO MEASUREMENTS (cm) DIASTOLIC (NORMALS) SYSTOLIC (NORMALS) IVSd 1.0 (0.6-1.2) LA Diam 3.2 (1.9-4.0) LVEF 60-65% LVIDd 4.1 (3.5-5.7) LVIDs 2.9 (2.0-3.5) %FS 30% LVPWd 1.0 (0.6-1.2) Ao Diam 3.6 (2.0-3.7) 2 DIMENSIONAL ASSESSMENT: RIGHT ATRIUM: NORMAL LEFT ATRIUM: NORMAL RIGHT VENTRICLE: NORMAL LEFT VENTRICLE: NORMAL TRICUSPID VALVE: NORMAL MITRAL VALVE: NORMAL PULMONIC VALVE: NORMAL AORTIC VALVE: NORMAL PERICARDIAL EFFUSION: NONE AORTIC ROOT: NORMAL LEFT VENTRICULAR WALL MOTION: NORMAL DOPPLER/COLOR FLOW: NORMAL COMMENTS: NORMAL TWO DIMENSIONAL ECHOCARDIOGRAM WITH DOPPLER. TECHNOLOGIST: PEARL OSMAN
--- NOTE | 2019-01-24 18:18 | CON ---
History Of Present Illness: Mr. Mcghee has been having chest pain, came to the hospital. The pain is behind his right shoulder blade radiating to back of his head. Today it is on the left side of hi s neck, radiates to the left pectoral muscle. Today, he has had it for about 2 hours. There are no EKG changes or rhythm changes. Mr. Mcghee has a history of hypertension. He takes simvastatin, met oprolol, and irbesartan. He also has a history of dyslipidemia and obesity. He does not have diabet es. He has never had myocardial infarction or stroke. He sees Dr. Mireles and has undergone noninva sive testing for his heart, but has never required a cardiac cath or a stent or any other kind of hea rt or vascular surgery. Allergies: HE HAS NO ALLERGIES. Social History: He is a regular cigarette smoker. Uses no illegal drugs. Moderate amounts of alcohol. Physical Examination: Vital Signs: 6 feet tall, 320 pounds, body mass index 43.5. Obese. General: Alert, oriented, pleasant, not in distress. Lungs: Clear. Carotids: No bruit. Cardiac: Normal. Abdomen: Soft. Extremities: Normal. EKG normal. Troponins all less than 0.02. I would recommend the patient have a stress test. We would not be able to do it today. He has eaten and had caffeinated beverages. I do not think we would be able to accomplish a stress test that pattie ng confident in its accuracy, so we will keep him n.p.o. after midnight and do a nuclear stress test. It will most likely be a pharmacologic nuclear stress test. YING Voice ID: [id number] Report ID: [id number]
[2019-01-24] MEDS ORDERED: ATORVASTATIN 20 MG TAB PO SCH (21:00)
--- NOTE | 2019-01-25 05:10 | HP ---
Date of Admission: 01/23/2019 Chief Complaint: Chest pain, neck pain. History Of Present Illness: A 43-year-old male was brought to the emergency room with history of nec k pain, pain in the back of the chest, as well as left side of the chest. The patient had evaluation done including CAT scan and troponin and EKG. There was no evidence of myocardial injury. The shay ent is admitted for observation. The patient denied any history of fever, chills, rigors, nausea, vo miting. Past Medical History: Positive for hypertension, hyperlipidemia. Family History: Noncontributory. Allergies: NO KNOWN ALLERGIES. Personal History: Nonsmoker. Home Medicines: Avapro, metoprolol, Zocor. Review of Systems: No history of fever, chills, rigors. Physical Examination: General: Revealed a 43-year-old male, morbidly obese. HEENT: Negative. Neck: Supple. JVD negative. Chest: Clear. Heart: Regular. Abdomen: Soft. Extremities: No edema. Laboratory Data: Troponin, chest x-ray, CBC normal. Assessment: 1.Chest pain. 2.Hypertension. 3.Hyperlipidemia. Plan: The patient is scheduled for stress test tomorrow. Pending that, he will be continued on bloo d pressure medications. OSEI/ALVAREZ Voice ID: [id number]
[2019-01-25] MEDS: IRBESARTAN 150 MG TAB PO SCH (08:55)
[2019-01-25] MEDS: ASPIRIN EC 81 MG TAB PO SCH (08:56)
[2019-01-25 10:20] VITALS: O2SAT 95
--- NOTE | 2019-01-25 11:38 | RAD REPORT ---
EXAM DESCRIPTION: NM - Rest Stress Cardiac Imaging - 01/25/2019 11:28 am CLINICAL HISTORY: CP Chest pain. COMPARISON: No comparisons TECHNIQUE: The patient was administered approximately 10mCi of Tc 99m Sestamibi prior to resting SPE CT imaging of the heart. The patient was then administered approximately 30 mCi of Tc 99m Sestamibi f ollowing exercise or pharmacologic stress. Multiplanar SPECT images were reviewed. FINDINGS: No stress induced ischemic defect is seen to suggest stress induced ischemia. No fixed def ect is seen to suggest hibernating myocardium or scarred myocardium. The end diastolic volume is 140 ml, the end systolic volume is 64 ml, and the ejection fraction is 54 %. IMPRESSION: No stress induced ischemia.
[2019-01-25] MEDS ORDERED: IRBESARTAN 150 MG TAB PO SCH (13:55)
[2019-01-25 14:22] VITALS: BP 120/72; TEMP 98.2
--- NOTE | 2019-01-25 15:25 | PN ---
Date of Progress Note: 01/25/2019 Mr. Mcghee was admitted on 01/23/2019, was seen by Dr. Hudson on 01/24/2019 because of chest pain. Mr. Mcghee continues to have intermittent chest pain, atypical. Echocardiogram, which was done yest erday was normal. Telemetry is normal. Examination is normal. Lexiscan is pending today. We will see what that shows prior to making final decisions. TOO/ALVAREZ Voice ID: [id number] Report ID: [id number]
--- NOTE | 2019-01-25 17:02 | TREADMILL ---
70% H.R.: 123 85% H.R.: 149 90% H.R.: 158 100% H.R.: 175 DX: CHEST PAIN Date of Study: 01/25/19 Ht: 6 0 Wt: 320 lb 6.4 oz Consulting Physician: GT MEDICATIONS: SIMVASTATIN, AVAPRO, METOPROLOL HISTORY: 43 YEAR MALE WITH COMPLAINTS OF CHEST PAIN. HISTORY: HYPERTENSION, HYPERLIPIDEMIA, CARDIOMEGALY, OBESITY, UMBILIC HERNIA. PHYSICIAL EXAMINATION: RESTING B.P.: 136/54 RESTING H.R.: 77 RESTING EKG: PROTOCOL: TREADMIL EXERCISE TIME: 6:06 MAXIMUM HEART RATE: 151 86 % OF PREDICTED B.P. AT PEAK STRESS: 139/95 IMPRESSION: TREADMIL STOPPED DUE TO TARGET HEART RATE REACHED. CARDIOLITE INJECTED PER PROTOCOL, SEE NUCLEAR MEDICINE REPORT. NO SUPRAVENTRICULAR TACHYCARDIA, VENTRICULAR TACHYCARDIA, PREMATURE ATRIAL COMPLEXS, OR PREMATURE VENTRICULAR COMPLEXS. PATIENT REPORTED CHEST PAIN 5/10. NO ST CHANGE WITH STRESS. NORMAL ELECTROCARDIOGRAM STRESS TEST.
== END 2019-01-25 14:23 | disposition home or self-care (01) ==
LOC: ER 17:30 → ERHOLD 19:47 → 4TH 21:09
PROVIDERS: ADMIT Internal Medicine; ATTEND Internal Medicine
DX: R07.89 Other chest pain (principal); I10 Essential (primary) hypertension; E78.5 Hyperlipidemia, unspecified; E66.9 Obesity, unspecified; Z68.41 Body mass index [BMI] 40.0-44.9, adult
CPT/HCPCS: 36415; 70450; 71045; 78452; 80048; 80076; 81003; 83735; 83880; 84484; 85025; 85610; 93005; 93017; 93306; 96374; 96375; 99285; A9500; G0378; J2270; J2405

== ENCOUNTER 2019-02-06 20:26 | Emergency (ER) | payer BC ==
[2019-02-06] MEDS ORDERED: FAMOTIDINE 20 MG/2 ML VIAL IV ONE (22:10)
[2019-02-06] MEDS ORDERED: ONDANSETRON 4 MG/2 ML VIAL ONE (22:10)
[2019-02-06] MEDS ORDERED: ACETAMINOPHEN 500 MG TAB ONE (22:10)
[2019-02-06] MEDS ORDERED: NA CHLORIDE 0.9% 1,000 ML ONE (22:10)
[2019-02-06] MEDS ORDERED: KETOROLAC 30 MG/ML INJ ONE (22:10)
[2019-02-06 22:19] LABS: Absolute Lymphocytes (CBC) 0.9 K/uL (0.7-4.9); Absolute Monocytes 0.6 K/uL (0.1-1.3); Absolute Neutrophil 4.7 K/uL (1.8-8.0); Basophils % 0.4 % (0-1.3); Eosinophils % 3.8 % (0-4.4); Hematocrit 47.6 % (39.6-49.0); Lymphocytes % 14.4 % (15.3-44.8); MPV 8.6 fL (7.6-11.3); Monocytes % 9.2 % (3.3-12.3); RBC Red Blood Cell Count 5.61 M/uL (4.33-5.43)
[2019-02-06 22:25] LABS: Albumin 3.6 g/dL (3.4-5.0); Bilirubin Direct 0.1 mg/dL (0-0.2); Bilirubin Total 0.8 mg/dL (0.2-1.0); Potassium 3.8 mmol/L (3.5-5.1); Protein, Total 7.4 g/dL (6.4-8.2)
[2019-02-06 22:37] LABS: Urine Bacteria <20 /HPF (NONE SEEN); Urine Culture Reflex Order NOT NEEDED; Urine RBC <5 /HPF (NONE SEEN)
[2019-02-06 22:52] LABS: Urine Blood NEGATIVE (NEG); Urine Glucose NEGATIVE (NEG); Urine Protein TRACE (NEG); Urine Specific Gravity 1.025 (1.005-1.030); Urine pH 5.5 (5.0-7.0)
--- NOTE | 2019-02-07 00:15 | ER ---
Nurse's Notes [facility] Name: Toro Mcghee Age: 43 yrs Sex: Male : 1975 Arrival Date: 02/06/2019 Time: 20:29 Bed 30 Private MD: Gomez Hoffman R Diagnosis: Acute abdominal Pain;Diarrhea Presentation: 02/06 20:56 Presenting complaint: Patient states: Abdominal pain and diarrhea that started aj1 yesterday. Patient states that he woke up this morning running fever, this evening when he check his blood pressure it was high. Transition of care: patient was not received from another setting of care. Onset of symptoms was February 05, 2019. Risk Assessment: Do you want to hurt yourself or someone else? Patient reports no desire to harm self or others. Initial Sepsis Screen: Does the patient meet any 2 criteria? No. Patient's initial sepsis screen is negative. Does the patient have a suspected source of infection? No. Patient's initial sepsis screen is negative. Care prior to arrival: None. 20:56 Method Of Arrival: Ambulatory aj1 20:56 Acuity: GIGI 3 aj1 Triage Assessment: 20:58 Headache History: Denies prior headaches. General: Appears in no apparent distress. aj1 uncomfortable, Behavior is calm, cooperative, appropriate for age. Pain: Complains of pain in occipital area and abdomen Pain currently is 6 out of 10 on a pain scale. Pain began 1 day ago. Also complains of no other associated symptoms. Neuro: Level of Consciousness is awake, alert, obeys commands, Oriented to person, place, time, situation. Cardiovascular: Patient's skin is warm and dry. Respiratory: Airway is patent Respiratory effort is even, unlabored, Respiratory pattern is regular, symmetrical. Historical: - Allergies: 20:58 NKA; aj1 - Home Meds: 20:58 simvastatin 40 mg oral tab once daily [Active]; metoprolol tartrate 25 mg oral tab 2 aj1 times per day [Active]; rosuvastatin oral oral [Active]; amoxicillin Oral [Active]; aspirin 81 mg Oral chew [Active]; 02/07 00:17 losartan Oral [Active]; rv - PMHx: 02/06 20:58 abdominal hernia; Hyperlipidemia; Hypertension; aj1 - Immunization history:: Flu vaccine is not up to date. - Social history:: Smoking status: Patient uses tobacco products, smokes one-half pack cigarettes per day. - Ebola Screening: : Patient denies travel to an Ebola-affected area in the 21 days before illness onset. - Family history:: not pertinent. - Hospitalizations: : No recent hospitalization is reported. Screenin:05 Abuse screen: Denies threats or abuse. Denies injuries from another. Nutritional ca1 screening: No deficits noted. Tuberculosis screening: No symptoms or risk factors identified. Fall Risk None identified. Assessment: 21:05 General: Appears in no apparent distress. ill, Behavior is calm, cooperative, ca1 appropriate for age. Pain: Complains of pain in scalp and occipital area and abdomen Pain currently is 10 out of 10 on a pain scale. Pain began 1 day ago. Neuro: Level of Consciousness is awake, alert, obeys commands, Oriented to person, place, time, situation. Cardiovascular: Heart tones S1 S2 present Capillary refill < 3 seconds Patient's skin is warm and dry. Respiratory: Airway is patent Respiratory effort is even, unlabored, Respiratory pattern is regular, symmetrical, Breath sounds are clear bilaterally. GI: Abdomen is round non-distended, Bowel sounds present X 4 quads. Abd is soft X 4 quads Abdomen is tender to palpation in right lower quadrant and left lower quadrant Reports diarrhea. : No deficits noted. No signs and/or symptoms were reported regarding the genitourinary system. EENT: No deficits noted. No signs and/or symptoms were reported regarding the EENT system. Derm: Skin is intact, is healthy with good turgor, Skin is pink, warm \T\ dry. Musculoskeletal: Circulation, motion, and sensation intact. Capillary refill < 3 seconds. 22:05 Reassessment: Patient appears in no apparent distress at this time. Patient and/or ca1 family updated on plan of care and expected duration. Pain level reassessed. Patient is alert, oriented x 3, equal unlabored respirations, skin warm/dry/pink. 22:43 Reassessment: PT to CT scan. ca1 22:53 Reassessment: Patient appears in no apparent distress at this time. Patient is alert, ca1 oriented x 3, equal unlabored respirations, skin warm/dry/pink. Pt back from CT scan. Vital Signs: 20:58 BP 127 / 81; Pulse 81; Resp 18; Temp 98.5; Pulse Ox 95% on R/A; Weight 147.42 kg (R); aj1 Height 6 ft. 0 in. (182.88 cm) (R); Pain 6/10; 22:05 BP 114 / 73; Pulse 76; Resp 17 S; Pulse Ox 95% on R/A; ca1 22:37 BP 102 / 71; Pulse 83; Resp 17 S; Temp 98.4(O); Pulse Ox 95% on R/A; ca1 22:53 BP 103 / 66; Pulse 85; Resp 17 S; Temp 98.2(O); Pulse Ox 100% on R/A; ca1 02/07 00:16 BP 107 / 81; Pulse 67; Resp 16; Temp 98.6; Pulse Ox 99% ; rv 02/06 20:58 Body Mass Index 44.08 (147.42 kg, 182.88 cm) aj ED Course: 02/06 20:29 Patient arrived in ED. es 20:29 Gomez Hoffman MD is Private Physician. es 20:57 Triage completed. aj1 20:58 Arm band placed on Patient placed in an exam room. aj1 21:02 Carol Nagy, RN is Primary Nurse. ca1 21:05 Patient has correct armband on for positive identification. Bed in low position. Call ca1 light in reach. Side rails up X 1. Pulse ox on. NIBP on. Warm blanket given. 21:24 Dick Fletcher MD is Attending Physician. wa 21:47 Inserted saline lock: 20 gauge in right antecubital area, using aseptic technique. ca1 Blood collected. 21:47 No provider procedures requiring assistance completed. ca1 22:13 Radiology exam delayed due to lab results not completed at this time. (BUN/Creatinine). vm2 22:[address] via wheelchair. nj 22:43 CT completed. Patient tolerated procedure well. Patient moved back from CT. nj 23:03 CT Abd/Pelvis - W/Contrast In Process Unspecified. EDMS 02/07 00:14 Dick Swartz MD is Referral Physician. wa 00:17 IV discontinued, intact, bleeding controlled, No redness/swelling at site. Pressure rv dressing applied. Administered Medications: 02/06 21:45 Drug: Tylenol 1000 mg Route: PO; ca1 22:45 Follow up: Response: No adverse reaction; Pain is decreased ca1 21:48 Drug: NS 0.9% 1000 ml Route: IV; Rate: 1 bolus; Site: right antecubital; ca1 22:44 Follow up: Response: No adverse reaction; IV Status: Completed infusion ca1 21:49 Drug: Zofran 2 mg Route: IVP; Site: right antecubital; ca1 22:44 Follow up: Response: No adverse reaction; Pain is decreased ca1 21:55 Drug: Pepcid 20 mg Route: IVP; Site: right antecubital; ca1 22:45 Follow up: Response: No adverse reaction; Nausea is decreased ca1 22:00 Drug: TORadol 30 mg Route: IVP; Site: right antecubital; ca1 22:44 Follow up: Response: No adverse reaction; Pain is decreased ca1 02/07 00:15 Drug: Flagyl 500 mg Route: PO; rv 00:15 Follow up: Response: Medication administered at discharge. rv 00:15 Drug: LevaQUIN 500 mg Route: PO; rv 00:16 Follow up: Response: Medication administered at discharge. rv Outcome: 00:14 Discharge ordered by . mauro 00:16 Discharged to home ambulatory. rv 00:16 Condition: good 00:16 Discharge instructions given to patient, Instructed on discharge instructions, follow up and referral plans. medication usage, Demonstrated understanding of instructions, follow-up care, medications. 00:21 Prescriptions given X 3. rv 00:21 Patient left the ED. rv Signatures: Dispatcher [employer] Yamila Sanchez RN RN ajEstelle Mishra Nathan nj McGuire, Victoria 2 Dick Fletcher MD MD wa Vicente, Ronaldo, RN RN rv Carol Nagy RN RN ca1
--- NOTE | 2019-02-07 00:16 | EDPHYS ---
Physician Documentation [facility] Name: Toro Mcghee Age: 43 yrs Sex: Male : 1975 Arrival Date: 02/06/2019 Time: 20:29 Bed 30 Private MD: Gomez Hoffman R ED Physician Dick Fletcher HPI: 02/06 23:26 This 43 yrs old Male presents to ER via Ambulatory with complaints of wa Headache, Blood Pressure Problem. 23:27 This 43 yrs old Male presents to ER via Ambulatory with complaints of wa Headache, Blood Pressure Problem. 23:27 The patient presents to the emergency department with diarrhea, abdominal pain, of the wa umbilical area. Onset: The symptoms/episode began/occurred yesterday. Possible causes: unknown. The symptoms are aggravated by nothing. The symptoms are alleviated by nothing. Associated signs and symptoms: Pertinent positives: abdominal pain, diarrhea, STACY, Pertinent negatives: constipation, fever, nausea, vomiting. Severity of symptoms: At their worst the symptoms were moderate in the emergency department the symptoms are unchanged. The patient has not experienced similar symptoms in the past. The patient has not recently seen a physician. states about 11 episodes of loose yellow to brown stools yesterday. now STACY. also abd pain, more pronounced lisa umbilicus. denies vomiting or fever. states has a STACY. noted his BP elevated. took Imodium today. no diarrhea improved but still has belly pain and STACY. Historical: - Allergies: 20:58 NKA; aj1 - Home Meds: 20:58 simvastatin 40 mg oral tab once daily [Active]; metoprolol tartrate 25 mg oral tab 2 aj1 times per day [Active]; rosuvastatin oral oral [Active]; amoxicillin Oral [Active]; aspirin 81 mg Oral chew [Active]; 02/07 00:17 losartan Oral [Active]; rv - PMHx: 02/06 20:58 abdominal hernia; Hyperlipidemia; Hypertension; aj1 - Immunization history:: Flu vaccine is not up to date. - Social history:: Smoking status: Patient uses tobacco products, smokes one-half pack cigarettes per day. - Ebola Screening: : Patient denies travel to an Ebola-affected area in the 21 days before illness onset. - Family history:: not pertinent. - Hospitalizations: : No recent hospitalization is reported. ROS: 23:30 Constitutional: Negative for fever, chills, and weight loss, Eyes: Negative for injury, wa pain, redness, and discharge, ENT: Negative for injury, pain, and discharge, Neck: Negative for injury, pain, and swelling, Cardiovascular: Negative for chest pain, palpitations, and edema, Respiratory: Negative for shortness of breath, cough, wheezing, and pleuritic chest pain, Back: Negative for injury and pain, : Negative for injury, bleeding, discharge, and swelling, MS/Extremity: Negative for injury and deformity, Skin: Negative for injury, rash, and discoloration, Psych: Negative for depression, anxiety, suicide ideation, homicidal ideation, and hallucinations. 23:30 Abdomen/GI: Positive for abdominal pain, diarrhea, Negative for vomiting, rectal bleeding. 23:30 Neuro: Positive for headache, Negative for altered mental status, dizziness, gait disturbance. 23:30 All other systems are negative. Exam: 23:31 Constitutional: This is a well developed, well nourished patient who is awake, alert, wa and in no acute distress. Head/Face: Normocephalic, atraumatic. Eyes: Pupils equal round and reactive to light, extra-ocular motions intact. Lids and lashes normal. Conjunctiva and sclera are non-icteric and not injected. Cornea within normal limits. Periorbital areas with no swelling, redness, or edema. ENT: Nares patent. No nasal discharge, no septal abnormalities noted. Tympanic membranes are normal and external auditory canals are clear. Oropharynx with no redness, swelling, or masses, exudates, or evidence of obstruction, uvula midline. Mucous membranes moist. Neck: Trachea midline, no thyromegaly or masses palpated, and no cervical lymphadenopathy. Supple, full range of motion without nuchal rigidity, or vertebral point tenderness. No Meningismus. Chest/axilla: Normal chest wall appearance and motion. Nontender with no deformity. No lesions are appreciated. Cardiovascular: Regular rate and rhythm with a normal S1 and S2. No gallops, murmurs, or rubs. Normal PMI, no JVD. No pulse deficits. Respiratory: Lungs have equal breath sounds bilaterally, clear to auscultation and percussion. No rales, rhonchi or wheezes noted. No increased work of breathing, no retractions or nasal flaring. Back: No spinal tenderness. No costovertebral tenderness. Full range of motion. Skin: Warm, dry with normal turgor. Normal color with no rashes, no lesions, and no evidence of cellulitis. MS/ Extremity: Pulses equal, no cyanosis. Neurovascular intact. Full, normal range of motion. Psych: Awake, alert, with orientation to person, place and time. Behavior, mood, and affect are within normal limits. 23:31 Abdomen/GI: Inspection: abdomen appears normal, Bowel sounds: normal, in all quadrants, Palpation: soft, in all quadrants, mild abdominal tenderness, in the umbilical area. 23:31 Neuro: Orientation: is normal, Mentation: is normal, Cranial nerves: grossly normal, Motor: is normal. Vital Signs: 20:58 BP 127 / 81; Pulse 81; Resp 18; Temp 98.5; Pulse Ox 95% on R/A; Weight 147.42 kg (R); aj1 Height 6 ft. 0 in. (182.88 cm) (R); Pain 6/10; 22:05 BP 114 / 73; Pulse 76; Resp 17 S; Pulse Ox 95% on R/A; ca1 22:37 BP 102 / 71; Pulse 83; Resp 17 S; Temp 98.4(O); Pulse Ox 95% on R/A; ca1 22:53 BP 103 / 66; Pulse 85; Resp 17 S; Temp 98.2(O); Pulse Ox 100% on R/A; ca1 02/07 00:16 BP 107 / 81; Pulse 67; Resp 16; Temp 98.6; Pulse Ox 99% ; rv 02/06 20:58 Body Mass Index 44.08 (147.42 kg, 182.88 cm) [facility] MDM: 02/06 21:24 Patient medically screened. vt 02/07 00:08 Differential diagnosis: Nonspecific abd pain, cholecystitis, pancreatitis, wa appendicitis, diverticulitis, r/o colitis. Data reviewed: vital signs, nurses notes, lab test result(s), radiologic studies. Test interpretation: by ED physician or midlevel provider: labs noted within nml limits. CT abd/pelvis: no acute intra-abd pathological process. . Response to treatment: the patient's symptoms have markedly improved after treatment. ED course: STACY resolved. abd pain improved. work up essentially negative. will d/c home with meds and GI f/u. 02/06 21:38 Order name: Basic Metabolic Panel; Complete Time: 22:56 vt 02/06 21:38 Order name: CBC with Diff; Complete Time: :56 vt 02/06 21:38 Order name: Hepatic Function; Complete Time: 22:56 vt 02/06 21:38 Order name: Lipase; Complete Time: 22:56 vt 02/06 21:38 Order name: Urine Microscopic Only; Complete Time: 22:56 vt 02/06 22:44 Order name: Urine Dipstick--Ancillary (enter results); Complete Time: 22:56 ar5 02/06 21:39 Order name: CT Abd/Pelvis - W/Contrast vt 02/06 21:38 Order name: IV Saline Lock; Complete Time: 22:03 vt 02/06 21:38 Order name: Labs collected and sent; Complete Time: 22:03 vt 02/06 21:38 Order name: Urine Dipstick-Ancillary (obtain specimen); Complete Time: 22:03 vt Administered Medications: 02/06 21:45 Drug: Tylenol 1000 mg Route: PO; ca1 22:45 Follow up: Response: No adverse reaction; Pain is decreased ca1 21:48 Drug: NS 0.9% 1000 ml Route: IV; Rate: 1 bolus; Site: right antecubital; ca1 22:44 Follow up: Response: No adverse reaction; IV Status: Completed infusion ca1 21:49 Drug: Zofran 2 mg Route: IVP; Site: right antecubital; ca1 22:44 Follow up: Response: No adverse reaction; Pain is decreased ca1 21:55 Drug: Pepcid 20 mg Route: IVP; Site: right antecubital; ca1 22:45 Follow up: Response: No adverse reaction; Nausea is decreased ca1 22:00 Drug: TORadol 30 mg Route: IVP; Site: right antecubital; ca1 22:44 Follow up: Response: No adverse reaction; Pain is decreased ca1 02/07 00:15 Drug: Flagyl 500 mg Route: PO; rv 00:15 Follow up: Response: Medication administered at discharge. rv 00:15 Drug: LevaQUIN 500 mg Route: PO; rv 00:16 Follow up: Response: Medication administered at discharge. rv Disposition: 02/07/19 00:14 Discharged to Home. Impression: Acute abdominal Pain, Diarrhea. - Condition is Stable. - Discharge Instructions: Abdominal Pain, Adult, [id number], Diarrhea, Adult, [id number]. - Prescriptions for Cipro 500 mg Oral Tablet - take 1 tablet by ORAL route every 12 hours for 5 days; 10 tablet. Flagyl 500 mg Oral Tablet - take 1 tablet by ORAL route every 12 hours for 5 days; 10 tablet. Zofran 4 mg Oral Tablet - take 1 tablet by ORAL route every 12 hours As needed; 20 tablet. - Medication Reconciliation Form, Thank You Letter, Antibiotic Education, Prescription Opioid Use form. - Follow up: Dick Swartz MD; When: 2 - 3 days; Reason: Recheck today's complaints. - Problem is new. - Symptoms have improved. - Notes: take medication as prescribed. see the gastro doctor for further evaluation of diarrhea. return to ER for worsening concerns Signatures: Dispatcher [employer] EDMS Yamila Whitehead RN RN aj1 Dick Fletcher MD MD wa Vicente, Ronaldo, RN RN rv Acob, Cheryl, RN RN ca1 Corrections: (The following items were deleted from the chart) 00:21 00:14 02/07/2019 00:14 Discharged to Home. Impression: Acute abdominal Pain; Diarrhea. rv Condition is Stable. Forms are Medication Reconciliation Form, Thank You Letter, Antibiotic Education, Prescription Opioid Use. Follow up: Dick Swartz; When: 2 - 3 days; Reason: Recheck today's complaints. Problem is new. Symptoms have improved. mauro
[2019-02-07] MEDS ORDERED: metroNIDAZOLE 500 MG TABLET ONE (00:24)
[2019-02-07] MEDS ORDERED: levoFLOXacin 500 MG TAB ONE (00:24)
--- NOTE | 2019-02-07 10:24 | RAD REPORT ---
EXAM DESCRIPTION: CT Abdomen and Pelvis With Intravenous Contrast CLINICAL HISTORY: The patient is 43 years old and is Male; abd pain, diarrhea TECHNIQUE: Axial computed tomography images of the abdomen and pelvis with intravenous contrast. S agittal and coronal reformatted images were created and reviewed. This CT exam was performed using one or more of the following dose reduction techniques: automated exposure control, adjustment of t he mA and/or kV according to patient size, and/or use of iterative reconstruction technique. COMPARISON: None. FINDINGS: LUNG BASES: Unremarkable. No mass. No consolidation. ABDOMEN: LIVER: Hepatic steatosis. GALLBLADDER AND BILE DUCTS: Unremarkable. No calcified stones. No ductal dilation. PANCREAS: Unremarkable. No mass. No ductal dilation. SPLEEN: Unremarkable. No splenomegaly. ADRENALS: Unremarkable. No mass. KIDNEYS AND URETERS: Left renal cyst measuring 2.4 cm. No hydronephrosis. STOMACH AND BOWEL: Unremarkable. No obstruction. No mucosal thickening. PELVIS: APPENDIX: No findings to suggest acute appendicitis. BLADDER: Bladder is decompressed. REPRODUCTIVE: Unremarkable as visualized. ABDOMEN and PELVIS: INTRAPERITONEAL SPACE: Unremarkable. No free air. No significant fluid collection. BONES/JOINTS: No acute fracture. No dislocation. SOFT TISSUES: Fat-containing umbilical hernia. VASCULATURE: Unremarkable. No abdominal aortic aneurysm. LYMPH NODES: Unremarkable. No enlarged lymph nodes. IMPRESSION: 1. No acute abdominal or pelvic abnormality. 2. Hepatic steatosis. 3. 2.4 cm left renal cyst. Electronically signed by: Moustapha Kong DO 02/06/2019 11:10 PM CDT Due to temporary technical issues with the PACS/Fluency reporting system, reports are being signed by the in house radiologist as a courtesy to ensure prompt reporting. The interpreting radiologist is f chiragly responsible for the content of the report.
[2019-02-07 13:23] VITALS: BP 107/81; TEMP 98.6; O2SAT 99
== END 2019-02-07 00:21 | disposition home or self-care (01) ==
LOC: ER 20:26
DX: R19.7 Diarrhea, unspecified (principal); I10 Essential (primary) hypertension; E78.5 Hyperlipidemia, unspecified; F17.210 Nicotine dependence, cigarettes, uncomplicated; Z79.82 Long term (current) use of aspirin
CPT/HCPCS: 36415; 74177; 80048; 80076; 81003; 81015; 83690; 85025; J2405; J7030; Q9967

== ENCOUNTER 2019-07-16 16:14 | Observation (INO) | payer BC ==
[2019-07-16] MEDS ORDERED: ACETAMINOPHEN 500 MG TAB ONE (17:08)
[2019-07-16 17:35] LABS: Absolute Lymphocytes (CBC) 1.8 K/uL (0.7-4.9); Basophils % 1.6 % (0-1.3); Hematocrit 49.3 % (39.6-49.0); Lymphocytes % 16.7 % (15.3-44.8); MPV 8.3 fL (7.6-11.3); RBC Red Blood Cell Count 5.71 M/uL (4.33-5.43)
[2019-07-16 17:48] LABS: Protime INR 0.98
--- NOTE | 2019-07-16 17:51 | RAD REPORT ---
EXAM DESCRIPTION: RAD - Chest Pa And Lat (2 Views) - 07/16/2019 5:22 pm CLINICAL HISTORY: DYSPNEA COMPARISON: December 2018 TECHNIQUE: PA and lateral views of the chest were obtained. FINDINGS: The lungs are clear. Lung markings are similar to comparison. Heart size is prominent and stable. No vascular engorgement or acute findings of failure or volume overload. No pleural effusion or pneumothorax seen. No acute bony finding noted. No aortic abnormality. IMPRESSION: No acute cardiopulmonary process.
[2019-07-16 17:57] LABS: ALT/SGPT 28 U/L (12-78); AST/SGOT 12 U/L (15-37); Albumin 3.9 g/dL (3.4-5.0); Alkaline Phosphatase 72 U/L (45-117); BUN Blood Urea Nitrogen 15 mg/dL (7-18); Bicarbonate 28 mmol/L (21-32); Bilirubin Direct 0.1 mg/dL (0-0.2); Bilirubin Total 0.4 mg/dL (0.2-1.0); Glucose Level 96 mg/dL (74-106); Magnesium 2.4 mg/dL (1.8-2.4); NT PRO-BNP 49 pg/mL (<125); Potassium 4.2 mmol/L (3.5-5.1); Protein, Total 7.9 g/dL (6.4-8.2); Sodium Level 137 mmol/L (136-145); Troponin (Emerg Dept Use Only) < 0.02 ng/mL (0.0-0.045)
[2019-07-16 17:59] LABS: Blood Morphology Comment NOT SEEN (NOT SEEN); Platelet Estimate ADEQ; Urine White Blood Cell Casts OK
[2019-07-16] MEDS ORDERED: ASPIRIN 81 MG CHEWABLE TABLET ONE (18:04)
--- NOTE | 2019-07-16 18:32 | ER ---
Nurse's Notes [facility] Name: Toro Mcghee Age: 43 yrs Sex: Male : 1975 Arrival Date: 07/16/2019 Time: 16:18 Bed 6 Private MD: Gomez Hoffman R Diagnosis: Shortness Of Breath;headache;Chest Pain Presentation: 07/16 16:29 Presenting complaint: Patient states: PCM changed BP medication last week from 25 mg jl7 Metoprolol daily to 50 mg Metoprolol BID, c/o STACY every since the change. Reports SOB x 1 week. C/o lightheaded starting around 1100 today, denies N/V/D. Transition of care: patient was not received from another setting of care. Onset of symptoms was July 07, 2019. Risk Assessment: Do you want to hurt yourself or someone else? Patient reports no desire to harm self or others. Initial Sepsis Screen: Does the patient meet any 2 criteria? No. Patient's initial sepsis screen is negative. Does the patient have a suspected source of infection? No. Patient's initial sepsis screen is negative. Care prior to arrival: None. 16:29 Method Of Arrival: Ambulatory jl7 16:29 Acuity: GIGI 3 jl7 Historical: - Allergies: 16:36 NKA; jl7 - Home Meds: 16:36 aspirin 81 mg Oral chew [Active]; metoprolol tartrate 50 mg oral tab 2 times per day jl7 [Active]; simvastatin 40 mg Oral tab once daily [Active]; irbesartan 300 mg oral tab [Active]; - PMHx: 16:36 abdominal hernia; Hyperlipidemia; Hypertension; jl7 - Immunization history:: Adult Immunizations unknown. - Social history:: Smoking status: Patient uses tobacco products, denies chronic smoking, but will smoke occasionally. - Ebola Screening: : No symptoms or risks identified at this time. - Family history:: not pertinent. - Hospitalizations: : No recent hospitalization is reported. Screenin:43 Abuse screen: Denies threats or abuse. Denies injuries from another. Nutritional ca1 screening: No deficits noted. Tuberculosis screening: No symptoms or risk factors identified. Fall Risk IV access (20 points). Assessment: 16:43 General: Appears in no apparent distress. comfortable, Behavior is calm, cooperative, ca1 appropriate for age. Pain: Complains of pain in top of head Pain currently is 10 out of 10 on a pain scale. Neuro: Level of Consciousness is awake, alert, obeys commands, Oriented to person, place, time, situation, Appropriate for age Reports headache parietal area, since about a week. Cardiovascular: Reports lightheadedness, since about a week Heart tones S1 S2 present Capillary refill < 3 seconds Patient's skin is warm and dry. Pulses are all present. Respiratory: Reports shortness of breath at rest especially when lying down Airway is patent Respiratory effort is even, unlabored, Respiratory pattern is regular, symmetrical, Breath sounds are clear bilaterally. GI: Abdomen is round non-distended, obese, Bowel sounds present X 4 quads. Abd is soft and non tender X 4 quads. Patient currently denies nausea, vomiting. : No deficits noted. No signs and/or symptoms were reported regarding the genitourinary system. EENT: No deficits noted. No signs and/or symptoms were reported regarding the EENT system. Derm: Skin is intact, is healthy with good turgor, Skin is pink, warm \T\ dry. Musculoskeletal: Circulation, motion, and sensation intact. Capillary refill < 3 seconds, Range of motion: intact in all extremities. 18:06 Reassessment: Patient appears in no apparent distress at this time. Patient and/or ca1 family updated on plan of care and expected duration. Pain level reassessed. Patient is alert, oriented x 3, equal unlabored respirations, skin warm/dry/pink. 19:25 Reassessment: Patient appears in no apparent distress at this time. Patient and/or ca1 family updated on plan of care and expected duration. Pain level reassessed. Patient is alert, oriented x 3, equal unlabored respirations, skin warm/dry/pink. 19:34 Reassessment: Called for report, nurse will call back. ca1 19:49 Reassessment: Patient appears in no apparent distress at this time. Patient is alert, ca1 oriented x 3, equal unlabored respirations, skin warm/dry/pink. Vital Signs: 16:36 BP 125 / 99; Pulse 79; Resp 19 S; Temp 98.4(O); Pulse Ox 100% on R/A; Pain 10/10; jl7 18:07 BP 115 / 84 Supine; Pulse 64; Resp 16 S; Pulse Ox 100% on R/A; ca1 18:07 BP 115 / 84; Pulse 60; Resp 17; Pulse Ox 97% on R/A; mh5 19:25 BP 105 / 69; Pulse 58; Resp 15 S; Pulse Ox 95% on R/A; ca1 ED Course: 16:18 Patient arrived in ED. mr 16:18 Gomez Hoffman MD is Private Physician. mr 16:33 Triage completed. jl7 16:36 Arm band placed on right wrist. jl7 16:39 Carol Nagy RN is Primary Nurse. ca1 16:42 Dick Fletcher MD is Attending Physician. wa 16:43 Patient has correct armband on for positive identification. Bed in low position. Call [facility] light in reach. Side rails up X2. monitor car operator on. Pulse ox on. NIBP on. 16:43 Door closed. Noise minimized. Visitors limited. Lights dimmed. Warm blanket given. ca1 16:43 No provider procedures requiring assistance completed. ca1 16:58 EKG done, by electrical tech/project manager. reviewed by Dick Fletcher MD. [facility] 17:23 XRAY Chest Pa And Lat (2 Views) In Process Unspecified. EDMI 17:25 Initial lab(s) drawn, by or, sent to lab. Inserted saline lock: 20 gauge in right ca1 antecubital area, using aseptic technique. Blood collected. 18:03 Urine collected: clean catch specimen, clear. [facility] 18:03 Urine Microscopic Only Sent. [facility] 18:30 Gomez Hoffman MD is Hospitalizing Provider. wa 19:50 Patient admitted, IV remains in place. ca1 Administered Medications: 07:20 Drug: Tylenol 1000 mg Route: PO; ca1 18:06 Follow up: Response: No adverse reaction; Pain is decreased ca1 18:06 Drug: Aspirin Chewable Tablet 324 mg Route: PO; ca1 18:49 Follow up: Response: No adverse reaction ca1 Outcome: 18:31 Decision to Hospitalize by Provider. wa 19:50 Admitted to Med/surg accompanied by tech, via wheelchair, room 229. ca1 19:50 Condition: stable 19:50 Instructed on the need for admit. 20:07 Patient left the ED. ca1 Signatures: Dispatcher [employer] EDMI Fabrice Aliza Blanca [facility] Radha Adams RN RN jl7 Appiah, William, MD MD wa Montes, Ev sm3 Carol Nagy, RN RN ca1
--- NOTE | 2019-07-16 18:33 | EDPHYS ---
Physician Documentation [facility] Name: Toro Mcghee Age: 43 yrs Sex: Male : 1975 Arrival Date: 07/16/2019 Time: 16:18 Bed 6 Private MD: Gomez Hoffman R ED Physician Dick Fletcher HPI: 07/16 17:10 This 43 yrs old Male presents to ER via Ambulatory with complaints of Blood wa Pressure Problem, Headache, Breathing Difficulty. 17:15 The patient has shortness of breath at rest, with light activity. Onset: The wa symptoms/episode began/occurred 1 week(s) ago. Duration: The symptoms are continuous, and are steadily getting worse. The patient's shortness of breath is aggravated by exertion, is alleviated by nothing. Associated signs and symptoms: Pertinent positives: chest pain, dizziness, STACY, Pertinent negatives: non-productive cough, productive cough, fever, hemoptysis, vomiting. Severity of symptoms: At their worst the symptoms were moderate in the emergency department the symptoms are worse. The patient has not experienced similar symptoms in the past. The patient has been recently seen by a physician: the patient's primary care provider, had HTN meds increased. states still no improving. 43 yo M. h/o HTN states HAs x 5 days. also SOB with mild exertion and when lays down. admits to tightness to the chest as well. . Historical: - Allergies: 16:36 NKA; jl7 - Home Meds: 16:36 aspirin 81 mg Oral chew [Active]; metoprolol tartrate 50 mg oral tab 2 times per day jl7 [Active]; simvastatin 40 mg Oral tab once daily [Active]; irbesartan 300 mg oral tab [Active]; - PMHx: 16:36 abdominal hernia; Hyperlipidemia; Hypertension; jl7 - Immunization history:: Adult Immunizations unknown. - Social history:: Smoking status: Patient uses tobacco products, denies chronic smoking, but will smoke occasionally. - Ebola Screening: : No symptoms or risks identified at this time. - Family history:: not pertinent. - Hospitalizations: : No recent hospitalization is reported. ROS: 17:29 Constitutional: Negative for fever, chills, and weight loss, Eyes: Negative for injury, wa pain, redness, and discharge, ENT: Negative for injury, pain, and discharge, Neck: Negative for injury, pain, and swelling, Abdomen/GI: Negative for abdominal pain, nausea, vomiting, diarrhea, and constipation, Back: Negative for injury and pain, : Negative for injury, bleeding, discharge, and swelling, MS/Extremity: Negative for injury and deformity, Skin: Negative for injury, rash, and discoloration, Psych: Negative for depression, anxiety, suicide ideation, homicidal ideation, and hallucinations. 17:29 Cardiovascular: Positive for chest pain, Negative for edema, palpitations. 17:29 Respiratory: Positive for shortness of breath, at rest. 17:29 Neuro: Positive for headache, Negative for altered mental status, gait disturbance. Exam: 17:29 Constitutional: This is a well developed, well nourished patient who is awake, alert, wa and in no acute distress. Head/Face: Normocephalic, atraumatic. Eyes: Pupils equal round and reactive to light, extra-ocular motions intact. Lids and lashes normal. Conjunctiva and sclera are non-icteric and not injected. Cornea within normal limits. Periorbital areas with no swelling, redness, or edema. ENT: Nares patent. No nasal discharge, no septal abnormalities noted. Tympanic membranes are normal and external auditory canals are clear. Oropharynx with no redness, swelling, or masses, exudates, or evidence of obstruction, uvula midline. Mucous membranes moist. Neck: Trachea midline, no thyromegaly or masses palpated, and no cervical lymphadenopathy. Supple, full range of motion without nuchal rigidity, or vertebral point tenderness. No Meningismus. Chest/axilla: Normal chest wall appearance and motion. Nontender with no deformity. No lesions are appreciated. Cardiovascular: Regular rate and rhythm with a normal S1 and S2. No gallops, murmurs, or rubs. Normal PMI, no JVD. No pulse deficits. Abdomen/GI: Soft, non-tender, with normal bowel sounds. No distension or tympany. No guarding or rebound. No evidence of tenderness throughout. Back: No spinal tenderness. No costovertebral tenderness. Full range of motion. Skin: Warm, dry with normal turgor. Normal color with no rashes, no lesions, and no evidence of cellulitis. MS/ Extremity: Pulses equal, no cyanosis. Neurovascular intact. Full, normal range of motion. Neuro: Awake and alert, GCS 15, oriented to person, place, time, and situation. Cranial nerves II-XII grossly intact. Motor strength 5/5 in all extremities. Sensory grossly intact. Cerebellar exam normal. Normal gait. Psych: Awake, alert, with orientation to person, place and time. Behavior, mood, and affect are within normal limits. 17:29 Respiratory: Exam negative for the patient does not display signs of respiratory distress, Respirations: normal, Breath sounds: scattered coarseness auscultated bilaterally. Vital Signs: 16:36 BP 125 / 99; Pulse 79; Resp 19 S; Temp 98.4(O); Pulse Ox 100% on R/A; Pain 10/10; jl7 18:07 BP 115 / 84 Supine; Pulse 64; Resp 16 S; Pulse Ox 100% on R/A; ca1 18:07 BP 115 / 84; Pulse 60; Resp 17; Pulse Ox 97% on R/A; mh5 19:25 BP 105 / 69; Pulse 58; Resp 15 S; Pulse Ox 95% on R/A; ca1 MDM: 16:42 Patient medically screened. ca 17:30 Differential diagnosis: CHF exacerbation, Chronic Obstructive Pulmonary Disease wa Myocardial Infarction pneumonia, pulmonary edema, Pulmonary Embolism reactive airway disease, Unstable Angina. 18:28 Data reviewed: vital signs, nurses notes, lab test result(s), EKG, radiologic studies. ca Test interpretation: by ED physician or midlevel provider: labs noted wnl. CXR: no acute process. d-dimer negative. . Test interpretation: by ED physician or midlevel provider: EKG: HR 64. sinus. incomplete non-specific interventricular delay. . Response to treatment: the patient's symptoms have mildly improved after treatment. Physician consultation: Gomez Hoffman MD. Admission orders: after a detailed discussion of the patient's condition and case, the admit orders are written by wa. ED course: discussed w/ Dr. hoffman. admit. consult cardiology for further eval. 07/16 17: Order name: BMP; Complete Time: 18:21 ca 07/16 17: Order name: CBC with Diff ca 07/16 17: Order name: D-Dimer; Complete Time: 18:21 07/16 17: Order name: Hepatic Function; Complete Time: 18: ca 10/21 17:01 Order name: Magnesium; Complete Time: 18:21 ca 07/16 17:01 Order name: NT PRO-BNP; Complete Time: 18:21 ca 07/16 17:01 Order name: PT-INR; Complete Time: 18:21 ca 07/16 17:01 Order name: Troponin (emerg Dept Use Only); Complete Time: 18:21 ca 07/16 17:01 Order name: Urine Microscopic Only ca 07/16 18:00 Order name: CBC Smear Scan; Complete Time: 18:21 [facility] 07/16 18:48 Order name: Lipid Profile [facility] 07/16 18:48 Order name: Lipid Profile [facility] 07/16 18:48 Order name: Troponin I [facility] 07/16 18:52 Order name: Urine Dipstick--Ancillary (enter results) 07/16 17:01 Order name: XRAY Chest Pa And Lat (2 Views); Complete Time: 18:21 ca 07/16 17:01 Order name: EKG; Complete Time: 17:01 ca 07/16 17:01 Order name: Cardiac monitoring; Complete Time: 17:07 ca 07/16 17:01 Order name: EKG - Nurse/Tech; Complete Time: 17:24 ca 07/16 17:01 Order name: IV Saline Lock; Complete Time: 17:24 ca 07/16 17:01 Order name: Labs collected and sent; Complete Time: 17:24 ca 07/16 17:01 Order name: O2 Per Protocol; Complete Time: 17:07 ca 07/16 17:01 Order name: O2 Sat Monitoring; Complete Time: 17:07 ca 07/16 17:01 Order name: Urine Dipstick-Ancillary (obtain specimen); Complete Time: 18:02 ca 07/16 18:48 Order name: CONS Physician Consult [facility] 07/16 18:48 Order name: Respiratory Therapy Consult [facility] 07/16 18:48 Order name: Consistent Carb (ADA) [address] [facility] 07/16 18:48 Order name: Heart Healthy EDKS Administered Medications: 07:20 Drug: Tylenol 1000 mg Route: PO; ca1 18:06 Follow up: Response: No adverse reaction; Pain is decreased ca1 18:06 Drug: Aspirin Chewable Tablet 324 mg Route: PO; ca1 18:49 Follow up: Response: No adverse reaction ca1 Disposition: 10/21/19 18:31 Hospitalization ordered by Gomez Hoffman for Observation. Preliminary diagnosis are Shortness Of Breath, headache, Chest Pain. - Bed requested for Telemetry/MedSurg (observation). - Status is Observation. ca1 - Condition is Stable. - Problem is new. - Symptoms have improved. UTI on Admission? No Signatures: Dispatcher [employer] EDMckenna Salmeron RN RN cg Radha Adams RN RN jl7 Dick Fletcher MD MD wa Acob, Cheryl, RN RN ca1 Corrections: (The following items were deleted from the chart) 19:22 18:31 Hospitalization Ordered by Gomez Hoffman MD for Observation. Preliminary diagnosis cg is Shortness Of Breath; headache; Chest Pain. Bed requested for Telemetry/MedSurg (observation). Status is Observation. Condition is Stable. Problem is new. Symptoms have improved. UTI on Admission? No. ca 20:07 19:22 07/16/2019 18:31 Hospitalization Ordered by Gomez Hoffman MD for Observation. ca1 Preliminary diagnosis is Shortness Of Breath; headache; Chest Pain. Bed requested for Telemetry/MedSurg (observation). Status is Observation. Condition is Stable. Problem is new. Symptoms have improved. UTI on Admission? No. cg
[2019-07-16 18:54] LABS: Urine Bacteria NONE SEEN /HPF (NONE SEEN); Urine Culture Reflex Order NOT NEEDED; Urine RBC <5 /HPF (NONE SEEN)
[2019-07-16 18:57] LABS: Urine Blood NEGATIVE (NEG); Urine Glucose NEGATIVE (NEG); Urine Protein NEGATIVE (NEG); Urine Specific Gravity 1.025 (1.005-1.030)
[2019-07-16 20:16] VITALS: BMI 45.1
[2019-07-16] MEDS ORDERED: HOME MED 1 EA UNK (Simvastatin [Simvastatin] 40 MG) PO SCH (21:00)
[2019-07-17 04:28] VITALS: O2SAT 93
[2019-07-17] MEDS ORDERED: IRBESARTAN 150 MG TAB PO SCH (09:00)
--- NOTE | 2019-07-17 12:14 | EKG ---
Test Date: 2019-07-16 Test Time: 16:53:51 Work Checker: J CARLOS MEASUREMENT RESULTS: Intervals: Rate: 64 SC: 154 QRSD: 84 QT: 366 QTc: 377 [place]: P: 43 SC: 154 QRS: 11 T: 54 INTERPRETIVE STATEMENTS: Normal sinus rhythm Normal ECG Compared to ECG 01/23/2019 17:38:54 No significant changes Electronically Signed On 07-17-19 12:09:34 CDT by Jose Roberto Bravo
[2019-07-17 14:48] VITALS: BP 108/70; TEMP 97.2
--- NOTE | 2019-07-17 14:51 | CON ---
Date of Consultation: 07/17/2019 Reason For Consultation: Shortness of breath, headache, and hypertension. History Of Present Illness: Mr. Mcghee is a 43-year-old obese white male. He weighs 323 pounds. Zoey huitron was in the hospital in 01/2019, and had a normal echocardiogram and a normal Lexiscan. He comes in with shortness of breath, headache, hypertension, although his blood pressure in the emergency room was 125/99 and the last blood pressure was 107/70. Patient denied any actual chest pain. No nausea, vomiting, diaphoresis, PND, orthopnea, pedal edema, palpitations, or syncope. Past Medical History: Hypertension and dyslipidemia. Allergies: NONE. Medications: Include Avapro, metoprolol, and simvastatin. Review of Systems: Negative. Social History: Negative. Family History: Noncontributory. Physical Examination: Vital Signs: He weighed 323 pounds. Vital signs: Stable. Afebrile. Sinus rhythm. HEENT: Negative. Neck: Supple with no bruit. Chest: Clear. Cardiac: Regular rhythm and rate. No murmurs, gallops, or rubs. Abdomen: Obese, but benign. Extremities: No clubbing, cyanosis, or edema. Diagnostic Data: White count was 11,000, creatinine is 1.08. Chest x-ray is negative. EKG is negat chantal. Troponin is negative. BNP is negative. Echo was normal. Linda is normal in 01/2019. Impression And Plan: 1.Hypertension, well controlled. 2.Shortness of breath, possibly related to obesity and Pickwickian syndrome. 3.Possible anxiety. 4.Dyslipidemia, well controlled. I do not think Mr. Mcghee needs any further cardiac workup at thi s point. I think treatment for anxiety and possibly gastroesophageal reflux disease may be an option . I am comfortable with him going home and will certainly see him in the office as an outpatient. I f he continues to have dyspnea on exertion and/or chest pain, we will reconsider catheterization as a n outpatient. TOO/ALVAREZ Voice ID: [id number] Report ID: [id number]
--- NOTE | 2019-07-17 15:43 | RAD REPORT ---
EXAM DESCRIPTION: US - Abdomen Exam Limited - 07/17/2019 2:34 pm CLINICAL HISTORY: r/o gallbladder issues, abdominal pain COMPARISON: Abdomen Pelvis W Contrast dated 02/06/2019 FINDINGS: No gallstones, sludge or other abnormalities within the gallbladder lumen. No wall thicken ing or pericholecystic fluid. Multiple focal echogenic foci are seen along the gallbladder wall with posterior acoustic enhancement. This ring down artifact is typical for cholesterolosis. This is gener ally not of long-term significance. No mass or wall abnormality seen. No common duct stone or biliary tree dilatation identified. IMPRESSION: Cholesterolosis noted in the gallbladder wall, generally not of long-term significance. No gallbladder wall thickening or mass. No gallbladder stones or sludge. No biliary abnormality.
[2019-07-17] MEDS ORDERED: PANTOPRAZOLE 40MG TABLET PO SCH (16:30)
[2019-07-17] MEDS ORDERED: ATORVASTATIN 20 MG TAB PO SCH (21:00)
--- NOTE | 2019-07-18 00:23 | HP ---
Date of Admission: 07/16/2019 Chief Complaint: Multiple includes dizziness, headache, epigastric pain. History Of Present Illness: A 43-year-old male was brought to the emergency room with multiple compl aints including headache, dizziness, and epigastric pain. The patient had workup done in the emergen cy room and is admitted with a diagnosis of unstable angina and chest pain. Past Medical History: Positive for hypertension, hyperlipidemia. Surgical History: Positive for hernia surgery. The patient had stress test done in January of 2019 with negative results in this hospital. Family History: Noncontributory. Personal History: Nonsmoker. Allergies: NONE. Home Medicines: Aspirin, Lopressor, Avapro, Zocor. Review of Systems: No history of fever, chills, rigors. Physical Examination: General: Revealed a 43-year-old obese male, fully alert. Vital Signs: Normal. HEENT: Negative. Neck: Supple. JVD negative. Chest: Clear. Heart: Regular. Abdomen: Soft. Extremities: No edema. Neurological: Negative. Laboratory Data: Troponin negative. Chest x-ray negative. Assessment: 1.Headache, dizziness, and epigastric pain. 2.Hypertension. 3.Hyperlipidemia. 4.Anxiety. Plan: The patient had Cardiology consultation. The patient currently does not have any chest pain. In view of his epigastric pain, he will have ultrasound and Protonix trial. OSEI/ALVAREZ Voice ID: [id number]
--- OUTSIDE RECORDS SUMMARY | 2019-08-05 04:52 | XMS REPORT ---
:1975 [facility] Address [address] [place] [address] [place] [id number] Care Team Providers Name Role Phone Unavailable Unavailable Unavailable Problems This patient has no known problems. Allergies, Adverse Reactions, Alerts This patient has no known allergies or adverse reactions. Medications This patient has no known medications.
--- OUTSIDE RECORDS SUMMARY | 2019-08-05 04:52 | XMS REPORT | Summary of Care ---
:1975 Author Organization [facility] Address [address] [place] [id number] Care Team Providers Name Role Phone Gomez Goldsmith MD Primary Care Provider Reason for Visit Reason Comments New Patient RINGING IN EAR (Routine) Status Reason Specialty Diagnoses / Referred By Referred To Procedures Contact Contact New Request Neurology Diagnoses Tinnitus, right ear Gio Reyes Procedures CONSULT/REFERRAL NEUROLOGY [address] [place] [address] Encounter Details Date Type Department Care Team Description 06/08/2019 Office Visit [facility] Jean Paul Mayers Lumbar radiculopathy ( Primary Dx); Neurology-Bri Diane MD Tinnitus of both ears; [address] [place] [address] Mixed conductive and sensorineural hearing loss of both ears Drive, [address] [facility] [place] [phone] Allergies No Known Allergiesdocumented as of this encounter (statuses as of 06/11/2019) Medications Medication Sig Dispensed Refills Start Date End Date Status NEBIVOLOL HCL (BYSTOLIC Take 5 mg by 0 Active ORAL) mouth. naproxen sodium (ANAPROX) Take 1 tablet 14 tablet 0 01/18/2016 Active 550 mg tablet by mouth 2 (two) times daily with meals. cyclobenzaprine (FLEXERIL) Take 1 tablet 21 tablet 0 01/18/2016 Active 10 mg tablet by mouth 3 (three) times daily. acetaminophen-codeine Take 1 tablet 20 tablet 0 01/18/2016 Active (TYLENOL-CODEINE #3) by mouth every 300-30 mg tablet 4 (four) hours as needed for Pain (scale 7-10). hydroCHLOROthiazide 12.5 TAKE 1 TABLET 3 04/10/2019 Active mg tablet BY MOUTH EVERY DAY IN THE MORNING irbesartan 300 mg tablet TAKE 1 TABLET 0 03/15/2019 Active BY MOUTH EVERY MORNING simvastatin 40 mg tablet Take 40 mg by 0 Active mouth at bedtime. metoprolol tartrate 25 mg Take 25 mg by 0 Active tablet mouth 2 (two) times daily. diclofenac 50 mg EC Take 1 tablet 50 tablet 3 06/08/2019 Active tabletIndications: Lumbar by mouth 3 radiculopathy (three) times daily as needed for Pain. documented as of this encounter (statuses as of 06/11/2019) Active Problems Not on filedocumented as of this encounter (statuses as of 06/11/2019) Social History Tobacco Use Types Packs/Day Years Used Date Current Every Day Smoker Cigarettes 0 20 Smokeless Tobacco: Former User Snuff Comments: 4 cigarettes daily Alcohol Use Drinks/Week oz/Week Comments No 0 Standard drinks or equivalent 0.0 Sex Assigned at Date Recorded Not on file Job Start Date Occupation Industry Not on file Not on file Not on file Travel History Travel Start Travel End No recent travel history available. documented as of this encounter Last Filed Vital Signs Vital Sign Reading Time Taken Comments Blood Pressure 136/98 06/08/2019 10:06 AM CDT Pulse 71 06/08/2019 10:06 AM CDT Temperature 36.5 C (97.7 F) 06/08/2019 10:06 AM CDT Respiratory Rate 18 06/08/2019 10:06 AM CDT Oxygen Saturation - - Inhaled Oxygen Concentration - - Weight 143.8 kg (317 lb) 06/08/2019 10:06 AM CDT Height 181.6 cm (5' 11.5") 06/08/2019 10:06 AM CDT Body Mass Index 43.6 06/08/2019 10:06 AM CDT documented in this encounter Patient Instructions Patient InstructionsJean Paul Mayers MD - 06/08/2019 10:00 AM CDT documented in this encounter Progress Notes Jean Paul Mayers MD - 06/08/2019 10:00 AM CDT I have verified the medical student documentation and/or findings, including the history, physical exam, and medical decision making. Additionally, I have personally performed or re-performed the physical exam and medical decision making activities of this patient's evaluation and management service. Jean Paul Mayers MD Branch Credit Counselor Neurology HISTORY OF PRESENT ILLNESS: Toro Mcghee is a 43 year old male with a PMH of HTN and hypercholesterolemia who presents to neurology clinic as a referral from ENT with the chief complaint of "ringing of the ear". Patient states that he was sent because "other doctor thinks I might have a tumor in my brain". He states that the ringing began at the end of March this year and has been constantly producing a high frequency ringing. Additionally, patient endorses decreased hearing on both sides and occipital headaches that radiate to his neck. He had a hearing test done in April of this year which he reports showed decreased hearing bilaterally. Patient denies vertigo, blurry vision, balance problems, or coordination issues. Patient has refused MRI of head in past due to claustrophobia. He has smoked for the past 30 years on/offand would use dip tobacco from age [age]. 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 Patient admits to feeling depressed and frustrated at times due to his inability to hear. Patient also comes with complaint of lower back pain, left hip pain, and left knee pain. Patient states the pain usually originates from the lower pain and radiates down the left hip and front of leftknee. He admits lifting multiple heavy objects in the past and hurting his back on multiple occasions. He denies any formal imaging of his back to further assess his condition. ROS questions to the patient. Cardiac: chest pain, shortness of breath, easy fatigue, arrhythmia, swelling of legs. Respiratory: cough, with sputum production, wheezing, insomnia. G.I.: nausea, vomiting, diarrhea, poor appetite, blood in stool, difficult swallow. Urinary: pain with urination, blood with urination, incontinence, difficulty urinating. Skin: discoloration, itching, change in hair or nails, skin breakdown. Hematology/immunology: easy bruising, malignancy. Head, nose, throat: (+) ringing of ears, (+) loss of hearing, nosebleeds, sores in mouth, hoarseness, facial pain. Neurology: dizziness, tremor, change in speech, seizures, fainting spells, loss of memory, weakness arm or leg, numbness arm or leg, word finding defect. Endocrine: hot cold intolerance, excessive urination, increased thirst, increased sweating. Psychiatric: disorientation, (+) depression, anxiety, mood disorder, loss of contact with reality, anger. Eyes: change in vision, eye pain, double vision, blurred vision, eyelid droop. Skeletal: pain in joints, muscle pain, (+) back pain, (+) neck pain, swelling of joints, swelling ofthe hands. Pertinent patient responses: The patient responded positively only to the bolded posed questions. PMH: has a past medical history of Enlarged heart, HTN (hypertension), and Hyperlipidemia. He also has no past medical history of Diabetes mellitus, Myocardial infarction, or Stroke. Current Outpatient Medications: diclofenac 50 mg EC tablet, Take 1 tablet by mouth 3 (three) times daily as needed for Pain., Disp: 50 tablet, Rfl: 3 hydroCHLOROthiazide 12.5 mg tablet, TAKE 1 TABLET BY MOUTH EVERY DAY IN THE MORNING, Disp: , Rfl: 3 irbesartan 300 mg tablet, TAKE 1 TABLET BY MOUTH EVERY MORNING, Disp: , Rfl : 0 metoprolol tartrate 25 mg tablet, Take 25 mg by mouth 2 (two) times daily. , Disp: , Rfl: simvastatin 40 mg tablet, Take 40 mg by mouth at bedtime., Disp: , Rfl: acetaminophen-codeine (TYLENOL-CODEINE #3) 300-30 mg tablet, Take 1 tablet by mouth every 4 (four) hours as needed for Pain (scale 7-10)., Disp: 20 tablet , Rfl: 0 cyclobenzaprine (FLEXERIL) 10 mg tablet, Take 1 tablet by mouth 3 (three) times daily., Disp: 21 tablet, Rfl: 0 naproxen sodium (ANAPROX) 550 mg tablet, Take 1 tablet by mouth 2 (two) times daily with meals., Disp: 14 tablet, Rfl: 0 NEBIVOLOL HCL (BYSTOLIC ORAL), Take 5 mg by mouth., Disp: , Rfl: Family History Problem Relation Age of Onset Diabetes Mother Hypertension Mother Diabetes Father Hypertension Father Past Surgical History: Procedure Laterality Date APPENDECTOMY TONSILLECTOMY Social History Socioeconomic History Marital status: Single Spouse name: Not on file Number of children: Not on file Years of education: Not on file Highest education level: Not on file Occupational History Not on file Social Needs Financial resource strain: Not on file Food insecurity: Worry: Not on file Inability: Not on file Transportation needs: Medical: Not on file Non-medical: Not on file Tobacco Use Smoking status: Current Every Day Smoker Packs/day: 0.00 Years: 20.00 Pack years: 0.00 Types: Cigarettes Smokeless tobacco: Former User Types: Snuff Tobacco comment: 4 cigarettes daily Substance and Sexual Activity Alcohol use: No Alcohol/week: 0.0 oz Drug use: Not on file Sexual activity: Not on file Lifestyle Physical activity: Days per week: Not on file Minutes per session: Not on file Stress: Not on file Relationships Social connections: Talks on phone: Not on file Gets together: Not on file Attends synagogue service: Not on file Active member of club or organization: Not on file Attends meetings of clubs or organizations: Not on file Relationship status: Not on file Intimate partner violence: Fear of current or ex partner: Not on file Emotionally abused: Not on file Physically abused: Not on file Forced sexual activity: Not on file Other Topics Concern Not on file 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 Cranial nerves (vision, eye movement): EOM intact, equal reactive pupils, accommodation reflex present, full visual quintero. Opthalmoloscopic: absent papilledema, optic disc margins sharp, no retinal hemorrhages, exudates not apparent. Cranial nerves (face): normal mastication, facial sensation normal, facial motor normal, corneal reflex not done. Cranial nerves (taste, smell): taste intact by history, smell intact by history. Cranial nerve (hearing): normal conversational hearing, finger rub reveals decreased hearing bilaterally. Allen and Rinne show mixed conductive and sensorineural hearing loss on both sides. Cranial nerve (accessory): normal r/l sternomastoid bulk/tone/power. Shoulder shrug right and left normal. Cranial nerve (tongue): tongue bulk normal, tongue midline, palate centered. Peripheral motor: Arms: Strength, tone, power normal bilaterally. Legs: Strength, tone, power normal bilaterally. Reflexes: Arms: Triceps, biceps, brachioradialis 2+ and symmetrical Legs: Patelllar, ankle jerks 2 + and symmetrical. Toes downgoing bilaterally. Peripheral sensation: Arms: light touch intact, primary sharp touch normal, vibration symmetrical, proprioception normalbilaterally. Legs: light touch intact, primary sharp touch normal, vibration symmetrical, proprioception normal bilaterally. Coordination: Bilateral [id number] and finger tapping normal. Bilateral RAH motions symmetrical. Gait: gait normal, arm swing intact, romberg negative. Tandem walk normal, can balance on one foot or the other. HEENT: A/N, no oropharyngeal lesion present, JVD absent, thyromegaly absent, no lymphadenopathy present. Lungs: lungs clear, no wheezing, no rhonchi. Heart: CV RRR, no murmurs, carotid bruits absent. Peripheral vascular: no peripheral cyanosis, clubbing absent, no peripheral edema present, intact peripheral pulses, extremities warm to touch. Musculoskeletal: normal cervical ROM. Vital signs: BP (!) 136/98 | Pulse 71 | Temp 36.5 C (97.7 F) (Oral) | Resp 18 | Ht 5 ' 11.5" (1.816 m) | Wt 317 lb (143.8 kg) | BMI 43.60 kg/m ASSESSMENT AND RECOMMENDATIONS: ICD-10-CM ICD-9-CM 1. Lumbar radiculopathy M54.16 724.4 2. Tinnitus of both ears H93.13 388.30 3. Mixed conductive and sensorineural hearing loss of both ears H90.6 389.22 Impression: Toro Mcghee is a 43 y/o male with a PMH of HTN and hypercholesterolemia who presents to neurology clinic for evaluation of his ongoing tinnitus. Based on history and presentation, patient presents with mixed conductive hearing loss of both ears and tinnitus. Patient would benefit from imaging of the head to effectively rule out a mass or lesion that may be contributing to his symptoms. Patient is claustrophobic in MRI machine so CT scan of the head can be obtained for results. Lower back pain with radiation of the knee is suspicious for radiculopathy due to nerve impingement. 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 Due to him denying previous formal imaging , patient would benefit from X-ray of lower back to evaluate bone structure and space. Additionally, patient can commence anti-inflammatory medication to aid with the pain. Plan: - Obtain CT head w/o contrast for further evaluation - Obtain X-ray lumber spine to evaluate bone structure - Start taking Diclofenac 50 TID PRN pain Creation of the note was aided by utilizing a cut/paste operation of text from a Microsoft Word template created with Glance. The text was dictated into the template via [employer] Naturally Speaking. documented in this encounter Plan of Treatment Health Maintenance Due Date Last Done Comments PNEUMOCOCCAL 0-64 YEARS COMBINED SERIES (1 of - 1979 PPSV23) DTaP,Tdap,and Td Vaccines (1 - Tdap) 1992 INFLUENZA VACCINE (#1) 2019 documented as of this encounter Results Not on filedocumented in this encounter Visit Diagnoses Diagnosis Lumbar radiculopathy - Primary Thoracic or lumbosacral neuritis or radiculitis, unspecified Tinnitus of both ears Unspecified tinnitus Mixed conductive and sensorineural hearing loss of both ears Mixed hearing loss, bilateral documented in this encounter Insurance Payer Benefit Plan Subscriber ID Effective Dates Phone Address Type / Group [facility] [id number] 2017-Terence [phone] [address] PPO/POS [place] - OUT OF t 7 [id number] [place] [address] documented as of this encounter
--- OUTSIDE RECORDS SUMMARY | 2019-08-05 04:53 | XMS REPORT | Summary of Care ---
:1975 Author Organization [facility] Address [address] [place] [address] Care Team Providers Name Role Phone Gomez Goldsmith MD Primary Care Provider Reason for Referral MRI/CAT Scan (Routine) Status Reason Specialty Diagnoses / Referred By Referred To Procedures Contact Contact New Request Diagnostic Diagnoses Tinnitus of both ears Jean Paul Mayers Radiology Procedures CT HEAD WO CONTRAST MD Benedicto [address] [place] [phone] Reason for Visit Reason Comments Orders Encounter Details Date Type Department Care Team Description 06/14/2019 Telephone [facility] Jean Paul Mayers MD Orders Neurology-[address] [phone] [address] [place] [address] [phone] Allergies No Known Allergiesdocumented as of this encounter (statuses as of 06/14/2019) Medications Medication Sig Dispensed Refills Start Date [...] as of this encounter (statuses as of 06/14/2019) Active Problems Not on filedocumented as of this encounter (statuses as of 06/14/2019) Social History Tobacco Use Types Packs/Day Years [...] of this encounter Last Filed Vital Signs Not on filedocumented in this encounter Plan of Treatment Name Type Priority Associated Diagnoses Order Schedule CT HEAD WO CONTRAST IMAGING Routine Tinnitus of both ears Expected: 2018, Expires: 06/14/2020 XR LUMBAR SPINE 4 VW IMAGING Routine Lumbar radiculopathy Expected: 2018, Expires: 06/14/2020 Health Maintenance Due Date Last Done Comments PNEUMOCOCCAL 0-64 YEARS COMBINED SERIES (1 of - 1979 PPSV23) DTaP,Tdap,and Td Vaccines (1 - Tdap) 1992 INFLUENZA VACCINE (#1) 2019 documented as of this encounter Results Not on filedocumented in this encounter Visit Diagnoses Diagnosis Lumbar radiculopathy - Primary Thoracic or lumbosacral neuritis or radiculitis, unspecified Tinnitus of both ears Unspecified tinnitus documented in this encounter Insurance Payer Benefit Plan Subscriber ID Effective Dates Phone Address Type / Group AETNA AETNA O [id number] 2015-Prese HMO nt [employer] [id number] 2017-Terence [phone] [address] PPO/POS [place] - OUT OF t 7 [id number] [place] [address] documented as of this encounter
--- OUTSIDE RECORDS SUMMARY | 2019-08-05 04:53 | XMS REPORT | Summary of Care ---
:1975 Author Organization [facility] Address [address] [place] [address] Care Team Providers Name Role Phone Gomez Goldsmith MD Primary Care Provider Reason for Visit Reason Comments New Patient RINGING IN EAR (Routine) Status Reason Specialty Diagnoses / Referred By Referred To Procedures Contact Contact New Request Neurology Diagnoses Tinnitus, right ear Gio Reyes Procedures CONSULT/REFERRAL NEUROLOGY [address] [place] [address] Encounter Details Date Type Department Care Team Description 06/08/2019 Office Visit [facility] Jean Paul Mayers Lumbar radiculopathy ( Primary Dx); Neurology-Bri Diane MD Tinnitus of both ears; [address] [place] [address] Mixed conductive and sensorineural hearing loss of both ears [address], [address] [facility] [place] [phone] Allergies No Known Allergiesdocumented as of this [...] and management service. Jean Paul Mayers MD Patient Experience Coordinator Neurology HISTORY OF PRESENT ILLNESS: Toro Mcghee [...] from age [age]. 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 Coordination: Bilateral [id number] and finger tapping normal. Bilateral RAH motions [...] from a Microsoft Word template created with Photos [employer] Photos. The text was dictated into the template via [employer] Naturally Speaking. documented in this encounter Plan [...] Effective Dates Phone Address Type / Group [facility] [id number] 2017-Terence [phone] [address] PPO/POS [place] - OUT OF t 7 [id number] [place] [address] documented as of this encounter
== END 2019-07-17 17:02 | disposition home or self-care (01) ==
LOC: ER 16:14 → ERHOLD 18:39 → 2ND 19:58
PROVIDERS: ADMIT Internal Medicine; ATTEND Internal Medicine
DX: R10.13 Epigastric pain (principal); R51 Headache; R42 Dizziness and giddiness; I10 Essential (primary) hypertension; E78.5 Hyperlipidemia, unspecified; F41.9 Anxiety disorder, unspecified
CPT/HCPCS: 93005; 85025; 80048; 36415; 83735; 85610; 80061; 85379; 80076; 84484 ×2; 83880; 71046; 76705; 99285; G0378 ×3; 81003; 81015

== ENCOUNTER 2019-09-27 17:02 | Emergency (ER) | payer BC ==
--- OUTSIDE RECORDS SUMMARY | 2019-09-27 17:04 | XMS REPORT ---
:1975 Author Organization [facility] Address [address] [place] [address] Dr. Hampton [address] [place] [id number] Care Team Providers Name Role Phone Unavailable Unavailable Unavailable Problems This patient has no known problems. Allergies, Adverse Reactions, Alerts This patient has no known allergies or adverse reactions. Medications This patient has no known medications.
[2019-09-27] MEDS ORDERED: METOPROLOL TAR 50 MG TAB ONE (17:43)
[2019-09-27] MEDS ORDERED: IRBESARTAN 150 MG TAB PO ONE (18:00)
--- NOTE | 2019-09-27 18:35 | RAD REPORT ---
EXAM DESCRIPTION: Jaison Fall (2 Views)09/27/2019 6:14 pm CLINICAL HISTORY: Cough COMPARISON: June 2019 FINDINGS: The lungs appear clear of acute infiltrate. The heart is normal size IMPRESSION: No acute abnormalities displayed
[2019-09-27] MEDS ORDERED: ALBUTEROL 2.5 MG/3 ML NEB SOL ONE (19:09)
[2019-09-27] MEDS ORDERED: OSELTAMIVIR 75 MG CAP ONE (19:09)
[2019-09-27] MEDS ORDERED: METOPROLOL XL 50 MG TAB PO ONE (19:09)
[2019-09-27] MEDS ORDERED: predniSONE 20 MG TAB ONE (19:10)
[2019-09-27] MEDS ORDERED: FAMOTIDINE 20 MG TAB ONE (19:10)
--- NOTE | 2019-09-27 19:14 | EDPHYS ---
Physician Documentation [facility] Name: Toro Mcghee Age: 44 yrs Sex: Male : 1975 Arrival Date: 09/27/2019 Time: 17:04 Bed 16 Private MD: Gomez Hoffman R ED Physician James Benedict HPI: 09/27 19:08 This 44 yrs old Male presents to ER via Ambulatory with complaints of Flu snw Symptoms. 19:08 Onset: The symptoms/episode began/occurred suddenly, yesterday. Associated signs and snw symptoms: Pertinent positives: congestion, cough, fever, nasal discharge, sore throat, watery eyes. Modifying factors: The patient symptoms are alleviated by nothing. It is unknown whether or not the patient has had similar symptoms in the past, Daughter dx with influenza B yest. It is unknown whether or not the patient has recently seen a physician. sees Dr. Hoffman. Historical: - Allergies: 17:05 NKA; sv - PMHx: 17:05 abdominal hernia; Hyperlipidemia; Hypertension; sv ROS: 19:07 Eyes: Negative for injury, pain, redness, and discharge. snw 19:07 Neck: Negative for injury, pain, and swelling, Cardiovascular: Negative for chest pain, palpitations, and edema. 19:07 Back: Negative for injury and pain, : Negative for injury, bleeding, discharge, and swelling, MS/Extremity: Negative for injury and deformity, Skin: Negative for injury, rash, and discoloration, Neuro: Negative for headache, weakness, numbness, tingling, and seizure, Psych: Negative for depression, anxiety, suicide ideation, homicidal ideation, and hallucinations. 19:07 Constitutional: Positive for body aches, malaise. 19:07 ENT: Positive for sore throat. 19:07 Respiratory: Positive for cough, with green sputum. 19:07 Abdomen/GI: Positive for nausea, Negative for vomiting. Exam: 19:03 Constitutional: This is a well developed, well nourished patient who is awake, alert, snw and in no acute distress. Head/Face: Normocephalic, atraumatic. Eyes: Pupils equal round and reactive to light, extra-ocular motions intact. Lids and lashes normal. Conjunctiva and sclera are non-icteric and not injected. Cornea within normal limits. Periorbital areas with no swelling, redness, or edema. 19:03 Neck: Trachea midline, no thyromegaly or masses palpated, and no cervical lymphadenopathy. Supple, full range of motion without nuchal rigidity, or vertebral point tenderness. No Meningismus. Chest/axilla: Normal chest wall appearance and motion. Nontender with no deformity. No lesions are appreciated. 19:03 Abdomen/GI: Soft, non-tender, with normal bowel sounds. No distension or tympany. No guarding or rebound. No evidence of tenderness throughout. Back: No spinal tenderness. No costovertebral tenderness. Full range of motion. Skin: Warm, dry with normal turgor. Normal color with no rashes, no lesions, and no evidence of cellulitis. MS/ Extremity: Pulses equal, no cyanosis. Neurovascular intact. Full, normal range of motion. Neuro: Awake and alert, GCS 15, oriented to person, place, time, and situation. Cranial nerves II-XII grossly intact. Motor strength 5/5 in all extremities. Sensory grossly intact. Cerebellar exam normal. Normal gait. Psych: Awake, alert, with orientation to person, place and time. Behavior, mood, and affect are within normal limits. 19:03 ENT: TM's: no acute changes, remote hx of tinnitus bilaterally, Nose: is normal, Posterior pharynx: erythema, that is moderate, Voice: is normal. 19:03 Cardiovascular: Rate: tachycardic, Rhythm: regular, Pulses: no pulse deficits are appreciated, Heart sounds: normal. 19:03 Respiratory: the patient does not display signs of respiratory distress, Respirations: normal, Breath sounds: bronchial sounds, that are moderate, are heard diffusely, bronchitic cough. Vital Signs: 17:07 BP 164 / 112; Pulse 104; Resp 22; Temp 99.4(O); Pulse Ox 96% ; Weight 145.15 kg; Height sv 6 ft. 0 in. (182.88 cm); 19:10 BP 146 / 93; Pulse 89; Resp 20; Temp 99.5; Pulse Ox 99% ; rr5 17:07 Body Mass Index 43.40 (145.15 kg, 182.88 cm) sv MDM: 17:33 Patient medically screened. snw 19:09 Data reviewed: vital signs, nurses notes. Data interpreted: Pulse oximetry: on room air snw is 96 %. Interpretation: normal. Counseling: I had a detailed discussion with the patient and/or guardian regarding: the historical points, exam findings, and any diagnostic results supporting the discharge/admit diagnosis, the presence of at least one elevated blood pressure reading (>120/80) during this emergency department visit, lab results, radiology results, the need for outpatient follow up, to return to the emergency department if symptoms worsen or persist or if there are any questions or concerns that arise at home. Special discussion: I have referred the patient to see his PCP for further evaluation of high blood pressure. Based on the history and exam findings, there is no indication for further emergent testing or inpatient evaluation. I discussed with the patient/guardian the need to see the primary care provider for further evaluation of the symptoms. 09/27 17:14 Order name: Flu; Complete Time: 18:28 snw 09/27 17:37 Order name: Strep; Complete Time: 18:28 snw 09/27 17:37 Order name: Chest Pa And Lat (2 Views) XRAY; Complete Time: 18:37 snw 09/27 18:15 Order name: Throat Culture EDMS Administered Medications: 17:55 Drug: Metoprolol TARTRATE (Lopressor) 50 mg Route: PO; bb 19:15 Drug: Irbesartan 300 mg Route: PO; rr5 19:15 Drug: predniSONE 40 mg Route: PO; rr5 19:15 Drug: Pepcid 20 mg Route: PO; rr5 19:15 Drug: Tamiflu 75 mg Route: PO; rr5 19:16 Drug: Albuterol 2.5 mg Route: Inhalation; rr5 Disposition: 09/28 07:30 Co-signature as Attending Physician, James Benedict MD I agree with the assessment and kdr plan of care. Disposition: 09/27/19 19:12 Discharged to Home. Impression: Influenza due to other identified influenza virus, Acute bronchitis. - Condition is Stable. - Discharge Instructions: Acute Bronchitis, Adult, Fever, Adult, Hypertension, Influenza, Adult, Cough, Adult, Rehydration, Adult. - Prescriptions for Tamiflu 75 mg Oral Capsule - take 1 capsule by ORAL route every 12 hours for 5 days; 10 capsule. Tylenol- Codeine #3 300-30 mg Oral Tablet - take 1 tablet by ORAL route every 6 hours As needed; 6 tablet. Tessalon Perles 100 mg Oral Capsule - take 1 capsule by ORAL route every 8 hours As needed; 15 capsule. Prednisone 20 mg Oral Tablet - take 2 tablet by ORAL route once daily for 5 days; 10 tablet. Pepcid 20 mg Oral Tablet - take 1 tablet by ORAL route once daily for 10 days; 10 tablet. promethazine 25 mg Oral Tablet - take 1 tablet by ORAL route every 6 hours As needed; 20 tablet. - Medication Reconciliation Form, Thank You Letter, Antibiotic Education, Prescription Opioid Use form. - Follow up: Emergency Department; When: As needed; Reason: Trouble breathing, Worsening of condition. Follow up: Gomez Hoffman MD; When: 2 - 3 days; Reason: Recheck today's complaints, Continuance of care, Re-evaluation by your physician. Signatures: Dispatcher [employer] EDLin Pierre RN RN sv James Benedict MD MD [facility] Greer Ling, MANUFACTURING WORKER-C MANUFACTURING WORKER-Csnw Samantha Koenig RN RN Rowdy Flores RN RN rr5 Corrections: (The following items were deleted from the chart) 09/27 20:00 19:12 09/27/2019 19:12 Discharged to Home. Impression: Influenza due to other rr5 identified influenza virus; Acute bronchitis. Condition is Stable. Forms are Medication Reconciliation Form, Thank You Letter, Antibiotic Education, Prescription Opioid Use. Follow up: Emergency Department; When: As needed; Reason: Trouble breathing, Worsening of condition. Follow up: Gomez Hoffman; When: 2 - 3 days; Reason: Recheck today's complaints, Continuance of care, Re-evaluation by your physician. snw
--- NOTE | 2019-09-27 19:14 | ER ---
Nurse's Notes [facility] Name: Toro Mcghee Age: 44 yrs Sex: Male : 1975 Arrival Date: 09/27/2019 Time: 17:04 Bed 16 Private MD: Gomez Hoffman R Diagnosis: Influenza due to other identified influenza virus;Acute bronchitis Presentation: 09/27 17:05 Presenting complaint: Patient states: productive cough, body aches, SOB started last sv night. Daughter was dx with Flu B recently. Transition of care: patient was not received from another setting of care. Onset of symptoms was September 26, 2019. Risk Assessment: Do you want to hurt yourself or someone else? Patient reports no desire to harm self or others. Care prior to arrival: Medication(s) given: Tylenol, taken about 2 hrs ago. 17:05 Method Of Arrival: Ambulatory sv 17:05 Acuity: GIGI 2 sv 17:07 Initial Sepsis Screen: Does the patient meet any 2 criteria? RR > 20 per min. HR > 90 sv bpm. Yes Does the patient have a suspected source of infection? Yes: Productive cough/pneumonia. Historical: - Allergies: 17:05 NKA; sv - PMHx: 17:05 abdominal hernia; Hyperlipidemia; Hypertension; sv Screenin:10 Abuse screen: Denies threats or abuse. Denies injuries from another. Nutritional rr5 screening: No deficits noted. Tuberculosis screening: No symptoms or risk factors identified. Fall Risk None identified. Total Dickey Fall Scale indicates No Risk (0-24 pts). Assessment: 19:10 General: Appears in no apparent distress. comfortable, Behavior is calm, cooperative, rr5 appropriate for age. 19:10 Pain: Complains of pain in body Pain does not radiate. Pain Quality of pain is rr5 described as aching, Pain began gradually, Is intermittent. Neuro: Level of Consciousness is awake, alert, obeys commands, Oriented to person, place, time, situation, Appropriate for age. Cardiovascular: Capillary refill < 3 seconds Patient's skin is warm and dry. Respiratory: Reports cough that is colds and flu Airway is patent Respiratory effort is even, unlabored, Respiratory pattern is regular, symmetrical. GI: Abdomen is round non-distended, obese, Reports bloating. : No signs and/or symptoms were reported regarding the genitourinary system. EENT: Reports pain in throat when swallowing. Derm: Skin is intact, is healthy with good turgor, Skin temperature is warm. Musculoskeletal: Capillary refill < 3 seconds. 20:00 Reassessment: Patient appears in no apparent distress at this time. Patient is alert, rr5 oriented x 3, equal unlabored respirations, skin warm/dry/pink. discharge instruction given and explained without complaints made, verbalized understading. Vital Signs: 17:07 BP 164 / 112; Pulse 104; Resp 22; Temp 99.4(O); Pulse Ox 96% ; Weight 145.15 kg; Height sv 6 ft. 0 in. (182.88 cm); 19:10 BP 146 / 93; Pulse 89; Resp 20; Temp 99.5; Pulse Ox 99% ; rr5 17:07 Body Mass Index 43.40 (145.15 kg, 182.88 cm) sv ED Course: 17:04 Patient arrived in ED. as 17:04 Gomez Hoffman MD is Private Physician. as 17:04 Arm band placed on. sv 17:07 Triage completed. sv 17:12 Lee Ann Roman, JOSÉ is Primary Nurse. ch 17:14 Greer Ling FNP-C [facility]. snw 17:14 James Benedict MD is Attending Physician. snw 18:04 Chest Pa And Lat (2 Views) XRAY In Process Unspecified. EDMS 19:10 Gomez Hoffman MD is Referral Physician. snw 19:10 Patient has correct armband on for positive identification. Bed in low position. Call rr5 light in reach. 19:10 No provider procedures requiring assistance completed. rr5 20:00 Rowdy Ortiz, JOSÉ is Primary Nurse. rr5 20:00 Patient did not have IV access during this emergency room visit. rr5 Administered Medications: 17:55 Drug: Metoprolol TARTRATE (Lopressor) 50 mg Route: PO; bb 19:15 Drug: Irbesartan 300 mg Route: PO; rr5 19:15 Drug: predniSONE 40 mg Route: PO; rr5 19:15 Drug: Pepcid 20 mg Route: PO; rr5 19:15 Drug: Tamiflu 75 mg Route: PO; rr5 19:16 Drug: Albuterol 2.5 mg Route: Inhalation; rr5 Outcome: 19:12 Discharge ordered by . w 19:59 Discharged to home ambulatory. rr5 19:59 Condition: stable 19:59 Discharge instructions given to patient, Instructed on discharge instructions, follow up and referral plans. Demonstrated understanding of instructions, follow-up care, medications, Prescriptions given X x6 20:00 Patient left the ED. rr5 Signatures: Dispatcher [employer] EDMS Lee Ann Roman RN RN Lin Mclean RN RN Greer Ling, HEALTH AND SAFETY MANAGER-C HEALTH AND SAFETY MANAGER-Vani Gonzalez Brenda, RN RN Rowdy Ortiz RN RN rr5 Corrections: (The following items were deleted from the chart) 17:10 17:05 Acuity: GIGI 3 [facility]
[2019-09-27 20:04] VITALS: BP 164/112; TEMP 99.4; O2SAT 96
== END 2019-09-27 20:00 | disposition home or self-care (01) ==
LOC: ER 17:02
DX: J10.1 Influenza due to other identified influenza virus with other respiratory manifestations (principal); J20.9 Acute bronchitis, unspecified; I10 Essential (primary) hypertension
CPT/HCPCS: 71046; 87070; 87081; 87804; 99284; J7512

== ENCOUNTER 2019-10-21 20:09 | Observation (INO) | payer BC ==
--- OUTSIDE RECORDS SUMMARY | 2019-10-21 20:11 | XMS REPORT ---
:1975 [facility] Address [address] [place] [address] Dr. Hampton [address] [place] [id number] Care Team Providers Name Role Phone Unavailable Unavailable Unavailable Problems This patient has no known problems. Allergies, Adverse Reactions, Alerts This patient has no known allergies or adverse reactions. Medications This patient has no known medications.
[2019-10-21 20:45] LABS: Basophils % 0.7 % (0-1.3); Hematocrit 48.9 % (39.6-49.0); Lymphocytes % 20.6 % (15.3-44.8); MPV 8.5 fL (7.6-11.3); RBC Red Blood Cell Count 5.73 M/uL (4.33-5.43)
--- NOTE | 2019-10-21 20:59 | RAD REPORT ---
EXAM DESCRIPTION: Jaison Single View10/21/2019 8:49 pm CLINICAL HISTORY: Chest pain COMPARISON: September 27, 2019 FINDINGS: The lungs appear clear of acute infiltrate. The heart is normal size IMPRESSION: No acute abnormalities displayed
[2019-10-21 21:18] LABS: BUN Blood Urea Nitrogen 13 mg/dL (7-18); Bicarbonate 28 mmol/L (21-32); Glucose Level 110 mg/dL (74-106); NT PRO-BNP 58 pg/mL (<125); Potassium 3.8 mmol/L (3.5-5.1); Sodium Level 141 mmol/L (136-145); Troponin (Emerg Dept Use Only) < 0.02 ng/mL (0.0-0.045)
[2019-10-21] MEDS ORDERED: LABETALOL 20 MG/4ML SYRINGE IV ONE (21:57)
--- NOTE | 2019-10-21 23:51 | ER ---
Nurse's Notes [facility] Name: Toro Mcghee Age: 44 yrs Sex: Male : 1975 Arrival Date: 10/21/2019 Time: 20:10 Bed 8 Private MD: Diagnosis: Chest pain, unspecified Presentation: 10/21 20:17 Presenting complaint: Patient states: CHEST PAIN IS ON AND OFF TODAY. 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 Transition of care: patient was not received from another setting of care. Onset of symptoms was October 21, 2019 at 19:00. Risk Assessment: Do you want to hurt yourself or someone else? Patient reports no desire to harm self or others. Initial Sepsis Screen: Does the patient meet any 2 criteria? No. Patient's initial sepsis screen is negative. Does the patient have a suspected source of infection? No. Patient's initial sepsis screen is negative. Care prior to arrival: None. 20:17 Method Of Arrival: Ambulatory rv 20:17 Acuity: GIGI 3 rv Triage Assessment: 20:21 General: Appears in no apparent distress. Behavior is calm, cooperative. Pain: rv Complains of pain in chest and left arm. Neuro: Level of Consciousness is awake, alert, obeys commands, Oriented to person, place, time, situation. Cardiovascular: Reports chest pain, shortness of breath, Patient's skin is warm and dry. Historical: - Allergies: 20:20 NKA; rv - Home Meds: 20:20 metoprolol tartrate 50 mg Oral tab 1 tab 2 times per day [Active]; hydrochlorothiazide rv 12.5 mg Oral cap 1 cap once daily [Active]; losartan 100 mg oral tab 1 tab once daily [Active]; Simvastatin Oral [Active]; - PMHx: 20:20 abdominal hernia; Hyperlipidemia; Hypertension; rv - PSHx: 20:20 Tonsillectomy; Appendectomy; rv - Immunization history:: Adult Immunizations up to date. - Coronavirus screen:: The patient has NOT traveled to [place], [place], or [place] in the past 14 days. The patient has NOT had contact with known/suspected case of Coronavirus?. - Social history:: Smoking status: Patient reports the use of cigarette tobacco products, smokes one-half pack cigarettes per day. - Family history:: not pertinent. - Ebola Screening: : No symptoms or risks identified at this time. - Hospitalizations: : No recent hospitalization is reported. Screenin:26 Abuse screen: Denies threats or abuse. Denies injuries from another. Nutritional ls4 screening: No deficits noted. Tuberculosis screening: No symptoms or risk factors identified. Fall Risk None identified. Assessment: 21:00 Reassessment: Patient appears in no apparent distress at this time. Patient and/or ls4 family updated on plan of care and expected duration. Pain level reassessed. Patient is alert, oriented x 3, equal unlabored respirations, skin warm/dry/pink. 22:20 Reassessment: Patient appears in no apparent distress at this time. Patient and/or ls4 family updated on plan of care and expected duration. Pain level reassessed. Patient is alert, oriented x 3, equal unlabored respirations, skin warm/dry/pink. 23:30 Reassessment: Patient appears in no apparent distress at this time. Patient and/or ls4 family updated on plan of care and expected duration. Pain level reassessed. Patient is alert, oriented x 3, equal unlabored respirations, skin warm/dry/pink. Patient states symptoms have improved. 10/22 00:30 Reassessment: Patient appears in no apparent distress at this time. Patient and/or ls4 family updated on plan of care and expected duration. Pain level reassessed. Patient is alert, oriented x 3, equal unlabored respirations, skin warm/dry/pink. 01:32 Reassessment: Patient appears in no apparent distress at this time. Patient and/or ls4 family updated on plan of care and expected duration. Pain level reassessed. Patient is alert, oriented x 3, equal unlabored respirations, skin warm/dry/pink. 01:32 Pain: Pain radiates to left arm Pain began gradually. ls4 Vital Signs: 10/21 20:22 Weight 146.06 kg; rv 20:23 BP 165 / 118; Pulse 96; Resp 18; Temp 98(O); Pulse Ox 100% ; ls4 21:00 BP 125 / 99; Pulse 82; Resp 20; Temp 98; Pulse Ox 99% on R/A; Pain 7/10; ls4 22:00 BP 132 / 101; Pulse 69; Resp 20; Pulse Ox 99% on R/A; ls4 22:59 BP 110 / 79; Pulse 68; Resp 16; Temp 98.0; Pulse Ox 94% on R/A; ls4 23:00 BP 110 / 79; Pulse 68; Resp 14; Temp 98.2(O); Pulse Ox 96% on R/A; Pain 3/10; ls4 10/22 00:00 BP 121 / 80; Pulse 68; Resp 14; Pulse Ox 98% on R/A; Pain 3/10; ls4 01:31 BP 128 / 89; Pulse 64; Resp 14; Temp 98.2; Pulse Ox 98% on R/A; Pain 3/10; ls4 ED Course: 10/21 20:10 Patient arrived in ED. ds1 20:18 Triage completed. rv 20:20 Bhavin Coronado MD is Attending Physician. rn 20:21 Arm band placed on Patient placed in the treatment room, on a stretcher, on oxygen, on rv potline monitor, on pulse oximetry, Patient notified of wait time. 20:26 Patient has correct armband on for positive identification. Placed in gown. Bed in low ls4 position. Call light in reach. Side rails up X2. campus monitor on. Pulse ox on. NIBP on. 20:26 No provider procedures requiring assistance completed. Inserted saline lock: 18 gauge ls4 in right antecubital area, using aseptic technique. Patient maintains SpO2 saturation greater than 95% on room air. 20:49 Rhianna Corona, JOSÉ is Primary Nurse. ls4 20:49 XRAY Chest (1 view) In Process Unspecified. EDMS 23:03 CT Aorta for Dissection In Process Unspecified. EDMS 23:50 Katty Harden MD is Hospitalizing Provider. rn 10/22 01:32 Patient admitted, IV remains in place. ls4 Administered Medications: 10/21 21:59 Drug: Labetalol 5 mg Route: IVP; Site: right antecubital; ls4 22:59 Follow up: BP 110 / 79; Pulse 68 bpm; Resp 16 bpm; Temp 98.0; Pulse Ox 94% RA; ls4 Response: No adverse reaction; Marked relief of symptoms; Blood pressure is lowered Outcome: 23:50 Decision to Hospitalize by Provider. rn 10/22 01:53 Admitted to Tele accompanied by tech, via stretcher, room 430, on monitor, with chart, ls4 Report called to amber urbina Condition: improved 02:04 Patient left the ED. em1 Signatures: Dispatcher [employer] EDMS Kamini Trejo ds1 Bhavin Coronado MD MD rn Martinez, Eric em1 Nick Conrad RN RN rv Stewart, Lisa, RN RN ls4
--- NOTE | 2019-10-21 23:51 | EDPHYS ---
Physician Documentation [facility] Name: Toro Mcghee Age: 44 yrs Sex: Male : 1975 Arrival Date: 10/21/2019 Time: 20:10 Bed 8 Private MD: ED Physician Bhavin Coronado HPI: 10/21 20:50 This 44 yrs old Male presents to ER via Ambulatory with complaints of Chest rn Pain, L Arm Pain. 20:50 The patient or guardian reports chest pain that is located primarily in the anterior rn chest wall, left. Onset: today. The pain radiates to the left arm. Associated signs and symptoms: Pertinent positives: shortness of breath. The chest pain is described as aching, dull. Duration: The patient or guardian reports multiple episodes, that are intermittent. Modifying factors: The symptoms are alleviated by nothing. the symptoms are aggravated by nothing. Severity of pain: At its worst the pain was moderate in the emergency department the pain has improved. The patient has not experienced similar symptoms in the past. Reports sob for "awhile", but today began with left sided chest pain, radiates to left arm, told had normal nuclear stress test 1 year ago, and has not been having chest pain since then. No trauma. Has had bronchitis recently, still coughing. . Historical: - Allergies: 20:20 NKA; rv - Home Meds: 20:20 metoprolol tartrate 50 mg Oral tab 1 tab 2 times per day [Active]; hydrochlorothiazide rv 12.5 mg Oral cap 1 cap once daily [Active]; losartan 100 mg oral tab 1 tab once daily [Active]; Simvastatin Oral [Active]; - PMHx: 20:20 abdominal hernia; Hyperlipidemia; Hypertension; rv - PSHx: 20:20 Tonsillectomy; Appendectomy; rv - Immunization history:: Adult Immunizations up to date. - Coronavirus screen:: The patient has NOT traveled to [place], [place], or [place] in the past 14 days. The patient has NOT had contact with known/suspected case of Coronavirus?. - Social history:: Smoking status: Patient reports the use of cigarette tobacco products, smokes one-half pack cigarettes per day. - Family history:: not pertinent. - Ebola Screening: : No symptoms or risks identified at this time. - Hospitalizations: : No recent hospitalization is reported. ROS: 20:50 Constitutional: Negative for fever, chills, and weight loss, Eyes: Negative for injury, rn pain, redness, and discharge, Neck: Negative for injury, pain, and swelling, Cardiovascular: Negative for palpitations, and edema, Respiratory: Negative for wheezing, and pleuritic chest pain, Abdomen/GI: Negative for abdominal pain, nausea, vomiting, diarrhea, and constipation, MS/Extremity: Negative for injury and deformity, Skin: Negative for injury, rash, and discoloration, Neuro: Negative for headache, weakness, numbness, tingling, and seizure. Exam: 20:50 Constitutional: Overweight male, no acute distress Head/Face: Normocephalic, rn atraumatic. Chest/axilla: Normal chest wall appearance and motion. Nontender with no deformity. No lesions are appreciated. Cardiovascular: Regular rate and rhythm. No pulse deficits. Respiratory: No increased work of breathing, no retractions or nasal flaring. Abdomen/GI: soft, non-tender MS/ Extremity: Pulses equal, no cyanosis. Neurovascular intact. Full, normal range of motion. Equal circumference. Neuro: Awake and alert, GCS 15, oriented to person, place, time, and situation. Cranial nerves II-XII grossly intact. Motor strength 5/5 in all extremities. Sensory grossly intact. Vital Signs: 20:22 Weight 146.06 kg; rv 20:23 BP 165 / 118; Pulse 96; Resp 18; Temp 98(O); Pulse Ox 100% ; ls4 21:00 BP 125 / 99; Pulse 82; Resp 20; Temp 98; Pulse Ox 99% on R/A; Pain 7/10; ls4 22:00 BP 132 / 101; Pulse 69; Resp 20; Pulse Ox 99% on R/A; ls4 22:59 BP 110 / 79; Pulse 68; Resp 16; Temp 98.0; Pulse Ox 94% on R/A; ls4 23:00 BP 110 / 79; Pulse 68; Resp 14; Temp 98.2(O); Pulse Ox 96% on R/A; Pain 3/10; ls4 10/22 00:00 BP 121 / 80; Pulse 68; Resp 14; Pulse Ox 98% on R/A; Pain 3/10; ls4 01:31 BP 128 / 89; Pulse 64; Resp 14; Temp 98.2; Pulse Ox 98% on R/A; Pain 3/10; ls4 MDM: 10/21 20:20 Patient medically screened. rn 23:48 Differential diagnosis: acute myocardial infarction, acute pericarditis, coronary rn artery disease chest wall pain, gastroesophageal reflux disease (GERD), pericarditis, pleurisy, stable angina, bleeding gastric ulcers. Data reviewed: vital signs, nurses notes, lab test result(s), radiologic studies. Counseling: I had a detailed discussion with the patient and/or guardian regarding: the historical points, exam findings, and any diagnostic results supporting the discharge/admit diagnosis, lab results, radiology results, the need for further work-up and treatment in the hospital. Admission orders: after a detailed discussion of the patient's condition and case, the admit orders are written by me. Special discussion:. ED course: Admitted to Dr. Atwood for chest pain, neg trop and CT aorta. Multiple medical problems and cardiac risk factors. . 10/21 20:27 Order name: Basic Metabolic Panel; Complete Time: 21:32 10/21 20:27 Order name: CBC with Diff; Complete Time: 21: 10/21 20:27 Order name: NT PRO-BNP; Complete Time: 21:32 10/21 20:27 Order name: Troponin (emerg Dept Use Only); Complete Time: 21:32 10/22 00:59 Order name: CBC with Automated Diff [facility] 10/22 00:59 Order name: Comprehensive Metabolic Panel [facility] 10/22 01:00 Order name: Hemoglobin A1c [facility] 10/22 01:00 Order name: Magnesium [facility] 10/22 01:03 Order name: Protime (+INR) [facility] 10/22 01:03 Order name: Thyroid Stimulating Hormone [facility] 10/22 01:03 Order name: CKMB Creatine Kinase MB [facility] 10/22 01:03 Order name: CKMB Creatine Kinase MB [facility] 10/22 01:03 Order name: CKMB Creatine Kinase MB [facility] 10/22 01:03 Order name: CKMB Creatine Kinase MB [facility] 10/21 20:27 Order name: XRAY Chest (1 view); Complete Time: 21: 10/21 20:27 Order name: EKG; Complete Time: 20: 10/21 20:27 Order name: Cardiac monitoring; Complete Time: 20:29 rn 10/21 20:27 Order name: EKG - Nurse/Tech; Complete Time: 20:29 rn 10/21 20:27 Order name: IV Saline Lock; Complete Time: 20:29 rn 10/21 20:27 Order name: Labs collected and sent; Complete Time: 21:21 rn 10/21 21:45 Order name: CT Aorta for Dissection rn 10/22 01:00 Order name: Heart Healthy [facility] 10/22 01:00 Order name: Echo with Doppler [facility] 10/22 01:03 Order name: Lipid Profile [facility] 10/22 01:03 Order name: Lipid Profile [facility] 10/22 01:03 Order name: Troponin I [facility] 10/22 01:03 Order name: Troponin I [facility] 10/22 01:03 Order name: Troponin I [facility] 10/22 01:03 Order name: Troponin I [facility] 10/21 20:27 Order name: O2 Per Protocol; Complete Time: 21:21 rn 10/21 20:27 Order name: O2 Sat Monitoring; Complete Time: 21:21 rn Administered Medications: 21:59 Drug: Labetalol 5 mg Route: IVP; Site: right antecubital; ls4 22:59 Follow up: BP 110 / 79; Pulse 68 bpm; Resp 16 bpm; Temp 98.0; Pulse Ox 94% RA; ls4 Response: No adverse reaction; Marked relief of symptoms; Blood pressure is lowered Disposition: 10/21/19 23:50 Hospitalization ordered by Katty Harden for Observation. Preliminary diagnosis is Chest pain, unspecified. - Bed requested for Telemetry/MedSurg (observation). - Status is Observation. em1 - Condition is Stable. - Problem is new. - Symptoms have improved. UTI on Admission? No Signatures: Dispatcher [employer] EDWI Bhavin Coronado MD MD rn Martinez, Eric em1 Mckenna Mills, JOSÉ KUMAR cg Nick Conrad RN RN rv Stewart, Lisa, RN RN ls4 Corrections: (The following items were deleted from the chart) 10/22 01:11 10/21 23:50 Hospitalization Ordered by Katty Harden MD for Observation. Preliminary cg diagnosis is Chest pain, unspecified. Bed requested for Telemetry/MedSurg (observation). Status is Observation. Condition is Stable. Problem is new. Symptoms have improved. UTI on Admission? No. rn 10/22 02:04 01:11 10/21/2019 23:50 Hospitalization Ordered by Katty Harden MD for Observation. em1 Preliminary diagnosis is Chest pain, unspecified. Bed requested for Telemetry/MedSurg (observation). Status is Observation. Condition is Stable. Problem is new. Symptoms have improved. UTI on Admission? No. cg
[2019-10-22] MEDS ORDERED: ONDANSETRON 4 MG/2 ML VIAL IV PRN (00:58)
[2019-10-22] MEDS ORDERED: ACETAMINOPHEN 325 MG TABLET PO PRN (00:58)
[2019-10-22] MEDS ORDERED: IPRATROPIUM BROM 0.5MG/2.5ML NEB PRN (00:58)
[2019-10-22] MEDS ORDERED: MORPHINE 2 MG/ML SYR IV PRN (00:58)
[2019-10-22] MEDS ORDERED: ALBUTEROL 2.5 MG/3 ML NEB SOL NEB PRN (00:58)
--- NOTE | 2019-10-22 01:06 | P.HP ---
Certification for Inpatient Patient admitted to: Observation With expected LOS: <2 Midnights Patient will require the following post-hospital care: None Practitioner: I am a practitioner with admitting privileges, knowledge of patient current condition, hospital course, and medical plan of care. Services: Services provided to patient in accordance with Admission requirements found in Title 42 Section 412.3 of the Code of Federal Regulations Patient History Date of Service: 10/22/19 Reason for admission: CHEST PAIN History of Present Illness: fior villanueva is a 44yoM w/ pmhx of morbid obesity and HTN who presents w/ unrelenting chest pain. he states that he noted having chest pain starting tuesday. he reports that the pain never went away but just decreased and increased in intensity. he reports that the pain as a pressure type pain starting in the substernal region and radiating to the left arm. associated w/ SOB. he reports worsening of the pain w/ walking up a flight of stairs. he reports that since he has been evaluated in the ED his chest pain has improved greatly, but this was first only after his BP was improved with medication resulting in a STACY, but improving his chest pressure. he denies JOSEPH, STACY, dizziness, fever, chills, n/v/le swelling, orthopnea, PND, cough diaphoresis. he reports tobacco use 1/3 pk/day x 30 yrs he denies drugs and etoh. Allergies No Known Allergies Allergy (Verified 01/28/17 21:00) Home Medications: Irbesartan [Avapro] 300 mg PO DAILY 01/24/19 Metoprolol Tartrate 50 mg PO BID 01/24/19 Simvastatin 40 mg PO BEDTIME 01/24/19 Aspirin 81 mg PO DAILY 07/16/19 hydroCHLOROthiazide [Hydrochlorothiazide*] 12.5 mg PO DAILY 07/16/19 Omeprazole [Prilosec] 40 mg PO DAILY 30 Days #30 capsule. 07/17/19 - Past Medical/Surgical History Diabetic: No -: Hypertension -: Hyperlipidemia -: Cardiomegaly -: Obesity -: Umbilical hernia -: Tobacco abuse -: Tonsillectomy -: Appendectomy Psychosocial/ Personal History: Patient is single, he has 1 child. He works at a [employer]. - Family History Father -: Hypertension, Diabetes, Other (see notes) Notes: dementia Mother -: Hypertension, Diabetes Sister -: Hypertension - Social History Smoking Status: Current every day smoker Smoking therapy provided: Yes Alcohol use: No CD- Drugs: No Caffeine use: No Review of Systems General: Unremarkable Eyes: Unremarkable ENT: Unremarkable Respiratory: Cough, SOB with Excertion Cardiovascular: Chest Pain, As per HPI Gastrointestinal: Unremarkable Genitourinary: Unremarkable Musculoskeletal: Unremarkable Integumentary: Unremarkable Neurological: Unremarkable Lymphatics: Unremarkable Physical Examination - Physical Exam General: Alert, In no apparent distress, Oriented x3, Cooperative, Obese (morbid ), Other (conversational, not ill or toxic appearing. morbid obese, heavy breathing w/o distress or dyspnea) HEENT: Atraumatic Neck: Other (very large neck) Respiratory: Inspiratory wheezes, Other (good aeration/scattered wheezing and distant breath sounds) Cardiovascular: No edema, Normal pulses, No murmurs Capillary refill: <2 Seconds Gastrointestinal: Soft and benign, Non-distended, No tenderness, Other (obese) Musculoskeletal: No clubbing, No swelling, No erythema Integumentary: Other (multiple diffuse skin tags throughout his body ) Neurological: Normal speech, Other (gait not tested) External genitalia: Deferred Rectal: Deferred - Studies Laboratory Data (last 24 hrs) 10/21/19 20:30: WBC 9.6, Hgb 16.3, Hct 48.9, Plt Count 277 10/21/19 20:30: Sodium 141, Potassium 3.8, BUN 13, Creatinine 0.88, Glucose 110 H Assessment and Plan - Plan 44yoM admitted w/ chest pain - typical location and area of radiation started on ASA, supplemental o2, sl nitro, morphine and tele monitoring will trend CE will obtain a1c, tsh and lipid profile will obtain drug screen stress test ordered for the AM. HTN prn antiHTN ordered will adjust home doses of antiHTN for better BP control pt consoled on dietary and lifestyle changes tobacco dependence started on duonebs ordered IS supplemental o2 as needed pt consoled on dietary and lifestyle changes nicotine patch ordered morbid obesity pt consoled on dietary and lifestyle changes started on heart healthy diet large neck on exam - concern for ELOINA continous pulse ox dvt lovenox code status - full - Advance Directives Does patient have a Living Will: No Does patient have a Durable POA for Healthcare: No
[2019-10-22 02:02] VITALS: BMI 44.9
[2019-10-22 04:52] LABS: Absolute Lymphocytes (CBC) 1.8 K/uL (0.7-4.9); Basophils % 0.6 % (0-1.3); Hematocrit 45.4 % (39.6-49.0); Lymphocytes % 21.1 % (15.3-44.8); MPV 8.8 fL (7.6-11.3); RBC Red Blood Cell Count 5.29 M/uL (4.33-5.43)
[2019-10-22 04:53] LABS: Protime INR 1.05
[2019-10-22 05:28] LABS: CKMB Creatine Kinase MB < 1.0 ng/mL (0.3-3.6); Troponin I < 0.02 ng/mL (0.0-0.045)
[2019-10-22 05:34] LABS: ALT/SGPT 34 U/L (12-78); AST/SGOT 12 U/L (15-37); Albumin 3.6 g/dL (3.4-5.0); Alkaline Phosphatase 61 U/L (45-117); BUN Blood Urea Nitrogen 13 mg/dL (7-18); Bicarbonate 27 mmol/L (21-32); Bilirubin Total 0.3 mg/dL (0.2-1.0); Glucose Level 106 mg/dL (74-106); HDL Cholesterol 36 mg/dL (40-60); LDL Cholesterol, Calculated 116 (<130); Magnesium 2.3 mg/dL (1.8-2.4); Potassium 3.9 mmol/L (3.5-5.1); Protein, Total 6.7 g/dL (6.4-8.2); Sodium Level 140 mmol/L (136-145)
[2019-10-22 06:07] LABS: Urine Appearance CLEAR; Urine Bilirubin NEGATIVE (NEG); Urine Blood NEGATIVE (NEG); Urine Color YELLOW; Urine Glucose NEGATIVE (NEG); Urine Protein NEGATIVE (NEG); Urine Specific Gravity >=1.030 (1.005-1.030); Urine Urobilinogen 0.2 mg/dL (0.2-1.0)
[2019-10-22 06:14] LABS: Urine Microscopic Reflex NO UMIC
--- NOTE | 2019-10-22 06:56 | EKG ---
Test Date: 2019-10-21 Test Time: 20:17:11 Bee Farmer: MIGUELINA MEASUREMENT RESULTS: Intervals: Rate: 85 OR: 142 QRSD: 78 QT: 336 QTc: 399 [place]: P: 43 OR: 142 QRS: 6 T: 55 INTERPRETIVE STATEMENTS: Normal sinus rhythm Possible Left atrial enlargement Borderline ECG Compared to ECG 07/16/2019 16:53:51 No significant changes Electronically Signed On 10-22-19 06:55:41 GRAIN BROKER by Ralf Hudson
[2019-10-22] MEDS: METOPROLOL TAR 50 MG TAB PO SCH ×3 (07:44→21:35)
[2019-10-22] MEDS ORDERED: INFLUENZA VACCINE (for 3y+) 0.5 ML DOSE IMVAC ONE (08:00)
[2019-10-22] MEDS ORDERED: REGADENOSON 0.4 MG/5 ML SYR IV ONE (08:59)
[2019-10-22] MEDS ORDERED: HOME MED 1 EA UNK (Irbesartan [Avapro] 300 MG) PO SCH (09:00)
[2019-10-22] MEDS ORDERED: ENOXAPARIN 40 MG/0.4 ML SQ SCH (09:00)
[2019-10-22] MEDS: IRBESARTAN 150 MG TAB PO SCH (09:49)
[2019-10-22] MEDS: NICOTINE 7 MG/PAT TD SCH (09:50)
[2019-10-22] MEDS: ASPIRIN 325 MG TAB PO SCH (10:00)
--- NOTE | 2019-10-22 10:43 | RAD REPORT ---
EXAM DESCRIPTION: NM - Rest Stress Cardiac Imaging - 10/22/2019 9:45 am CLINICAL HISTORY: Chest pain. COMPARISON: January 2019 TECHNIQUE: The patient was administered approximately 10mCi of Tc 99m Sestamibi prior to resting SPE CT imaging of the heart. The patient was then administered approximately 30 mCi of Tc 99m Sestamibi f ollowing exercise or pharmacologic stress. Multiplanar SPECT images were reviewed. FINDINGS: A small, mild area of diminished radiotracer uptake involves the inferior left ventricular myocardium on stress images. This demonstrates normal radiotracer activity on rest images Otherwise there is uniformity of radiotracer uptake involving the entire left ventricular myocardium on rest and stress images. The left ventricular ejection fraction equals 55% IMPRESSION: Small, mild apparent reversible perfusion defect involving the inferior left ventricular myocardium may indicate stress-induced ischemia
--- NOTE | 2019-10-22 11:27 | TREADPHA ---
DX: CHEST PAIN Date of Study: 10/22/2019 Ht: 5 11 Wt: 322 lb 7 oz Consulting Physician: GT MEDICATIONS: TYLENOL, LIPITOR, ASPIRIN, AVAPRO, LOVENOX, PROVENTIL, NICODERM, LUPE, ATROVENT, METOPROLOL, LOSARTAN. HISTORY: 44 YEAR OLD MALE WITH HISTORY OF HYPERTENSION, SMOKER. ADMITTED FOR CHEST PAIN. PHYSICIAL EXAMINATION: RESTING B.P.: 147/109 RESTING H.R.: 69 RESTING EKG: NORMAL. PROTOCOL: LEXISCAN EXERCISE TIME: 3:30 B.P. AT PEAK STRESS: 176/127 IMPRESSION: LEXISCAN STRESS TEST PERFORMED. CARDIOLITE INJECTED PER PROTOCOL. NO SUPRA VENTRICUAR TACHYCARDIA, NO VENTRICULAR TACHYCARDIA, NO ARRYHTHMIA NOTED. PATIENT DENIED CHEST PAIN. REPEAT BLOOD PRESSURE 173/111. TOLERATED WELL. PLEASE SEE NUCLEAR MEDICINE REPORT. NON DIAGNOSTIC EKG WITH LEXISCAN STRESS.
--- NOTE | 2019-10-22 12:36 | RAD REPORT ---
EXAM DESCRIPTION: CT - Angio Aorta For Dissection - 10/22/2019 5:22 am CLINICAL HISTORY: The patient is 44 years old and is Male; CHEST PAIN TECHNIQUE: Axial computed tomographic angiography images of the chest and axial computed tomography images of the abdomen and pelvis with intravenous contrast. This CT exam was performed using one or more of the following dose reduction techniques: automated exposure control, adjustment of the mA and/or kV according to patient size, and/or use of iterative reconstruction technique. MIP reconstructed images were created and reviewed. DLP: 2685 mGy*cm COMPARISON: Chest radiograph of the same day. FINDINGS: CHEST: AORTA: No acute findings. No aortic aneurysm. No dissection. Trace vascular calcification in t he distal abdominal aorta. PULMONARY ARTERIES: Evaluation of the pulmonary arterial tree due to poor bolus timing. No central pulmonary embolus. GREAT VESSELS OF AORTIC ARCH: No acute findings. No dissection. No arterial occlusion or signi ficant stenosis. LUNGS: 5 mm subpleural nodule in the left lower lobe (series 4 one, image 72). PLEURAL SPACE: Unremarkable. No significant effusion. No pneumothorax. HEART: Unremarkable. No cardiomegaly. No significant pericardial effusion. THYROID: Visualized thyroid is normal. ABDOMEN: LIVER: Suggested hepatic steatosis. GALLBLADDER AND BILE DUCTS: Unremarkable. No calcified stones. No ductal dilation. PANCREAS: Unremarkable. No ductal dilation. No mass. SPLEEN: Unremarkable. No splenomegaly. ADRENALS: Unremarkable. No mass. KIDNEYS AND URETERS: Left renal cyst measuring 2.1 cm. No hydronephrosis. No solid mass. STOMACH AND BOWEL: Mild diverticulosis of the descending colon. No obstruction. No mucosal thickening. PELVIS: APPENDIX: No findings to suggest acute appendicitis. BLADDER: Bladder is decompressed. REPRODUCTIVE: Unremarkable as visualized. CHEST, ABDOMEN and PELVIS: INTRAPERITONEAL SPACE: Unremarkable. No significant fluid collection. No free air. BONES/JOINTS: No acute fracture. No dislocation. SOFT TISSUES: Fat-containing umbilical and bilateral inguinal hernias. LYMPH NODES: Unremarkable. No enlarged lymph nodes. IMPRESSION: 1. No acute aortic dissection or aneurysm . No acute intrathoracic, abdominal or pel tika abnormality. 2. Mild diverticulosis of the descending colon. No acute diverticulitis. 3. Left renal cyst measuring 2.1 cm. 4. Fat-containing umbilical and bilateral inguinal hernias. 5. 5 mm right lower lobe subpleural nodule. No routine follow-up imaging is recommended. 6. Hepatic steatosis. Electronically signed by: Moustapha Kong DO 10/21/2019 11:32 PM PONY TRIMMER Due to temporary technical issues with the PACS/Fluency reporting system, reports are being signed by the in house radiologist as a courtesy to ensure prompt reporting. The interpreting radiologist is f ully responsible for the content of the report.
[2019-10-22 13:09] LABS: CKMB Creatine Kinase MB < 1.0 ng/mL (0.3-3.6); Troponin I < 0.02 ng/mL (0.0-0.045)
--- NOTE | 2019-10-22 14:06 | CON ---
Identification: 44-year-old man. Attending physician Dr. Peace for Dr. Harden. Chief Complaint: Chest pain. Reason For Consult: Abnormal nuclear stress test. History Of Present Illness: Mr. Mcghee has very atypical chest pain several years ago, similar thin g happened and a cardiac cath was recommended, he did not do it. There was no result in acute aguirre ry event since then. Now, he presents with atypical chest pain. It is mostly in his left shoulder, tingling in some of the fingers on his left hand and it comes and goes. Sometimes lasting a few seco nds, sometimes longer. Does not seem to be an exertional type of pain. The patient has no previous history of myocardial infarction or stroke or diabetes. He takes medicines for dyslipidemia, simvast atin 40. He takes blood pressure medicines, metoprolol 50 b.i.d., Avapro 300 a day, aspirin 81 mg pe r day, hydrochlorothiazide 12.5 mg daily. Allergies: REPORTS NO ALLERGIES. Social History: He is a regular tobacco user. Physical Examination: Constitutional: 5 feet 11 inches, 322 pounds. HEENT: Normal. Lungs: Clear. Cardiac: Normal. Abdomen: Soft. Extremities: Mild edema and distal pulses diminished but palpable. Diagnostic Studies: EKG shows left atrial abnormality, otherwise normal. A CT angio of the aorta fo r dissection does not show any dissection. There was no evidence of pulmonary embolus. Cardiac enzy mes were normal. His creatinine was 0.88, blood sugar 106. Impression: The patient has atypical chest pain with an abnormal Cardiolite showing inferior ischemi a. Recommendations: I have recommended cardiac cath, possible stent. The patient seems to understand t he procedure, its potential benefits, indications, risks and he agrees to proceed. ABAD/ALVAREZ Voice ID: [id number] Report ID: [id number]
--- NOTE | 2019-10-22 15:10 | ECHO ---
HEIGHT: 5 ft 11 in WEIGHT: 322 lb 0 oz DATE OF STUDY: 10/22/[address]: Katty Harden 2-DIMENSIONAL: YES M.MODE: YES DOPPLER: YES COLOR FLOW: YES TDS: NO PORTABLE: NO DEFINITY: NO BUBBLE STUDY: NO DIAGNOSIS: CHEST PAIN CARDIAC HISTORY: CATHERIZATION: NO SURGERY: NO PROSTHETIC VALVE: NO PACEMAKER: NO MEASUREMENTS (cm) DIASTOLIC (NORMALS) SYSTOLIC (NORMALS) IVSd 1.5 (0.6-1.2) LA Diam 3.6 (1.9-4.0) LVEF 65% LVIDd 5.5 (3.5-5.7) LVIDs 3.5 (2.0-3.5) %FS 36% LVPWd 1.6 (0.6-1.2) Ao Diam 3.3 (2.0-3.7) 2 DIMENSIONAL ASSESSMENT: RIGHT ATRIUM: NORMAL LEFT ATRIUM: DILATED RIGHT VENTRICLE: NORMAL LEFT VENTRICLE: LEFT VENTRICULAR HYPERTROPHY TRICUSPID VALVE: NORMAL MITRAL VALVE: NORMAL PULMONIC VALVE: NORMAL AORTIC VALVE: NORMAL PERICARDIAL EFFUSION: NONE AORTIC ROOT: NORMAL LEFT VENTRICULAR WALL MOTION: NORMAL. DOPPLER/COLOR FLOW: NORMAL. COMMENTS: NORMAL 2D ECHO WITH DOPPLER. LEFT VENTRICULAR HYPERTROPHY. DILATED LEFT ATRIUM. TECHNOLOGIST: PEARL OSMAN
[2019-10-22 19:30] LABS: CKMB Creatine Kinase MB < 1.0 ng/mL (0.3-3.6); Troponin I < 0.02 ng/mL (0.0-0.045)
[2019-10-22] MEDS ORDERED: ATORVASTATIN 20 MG TAB PO SCH (21:00)
[2019-10-23 05:55] VITALS: O2SAT 95
[2019-10-23] MEDS ORDERED: NA CHLORIDE 0.9% 1,000 ML ONE (06:03)
[2019-10-23] MEDS: ASPIRIN 325 MG TAB PO SCH (06:25)
[2019-10-23] MEDS: IRBESARTAN 150 MG TAB PO SCH (06:27)
[2019-10-23] MEDS: METOPROLOL TAR 50 MG TAB PO SCH (06:27)
[2019-10-23] MEDS: NICOTINE 7 MG/PAT TD SCH (07:48)
[2019-10-23] MEDS ORDERED: HEPA 1000U/500MLS 1,000 UNIT/500 ML BAG IV ONE (12:09)
[2019-10-23] MEDS ORDERED: NA CHLORIDE 0.9% 0 ML ONE (12:11)
[2019-10-23] MEDS ORDERED: MIDAZOLAM HCL 2 MG/2 ML INJ ONE (12:11)
[2019-10-23] MEDS ORDERED: ATROPINE SULF 1 MG/10 ML SYR IV ONE (12:11)
[2019-10-23] MEDS ORDERED: FENTANYL CITR 100 MCG/2 ML ONE (12:11)
[2019-10-23 12:40] VITALS: BP 136/88; TEMP 97.9
--- NOTE | 2019-10-23 23:24 | PN ---
The patient had a positive stress test. The patient was scheduled for a cardiac cath today; however the patient refused cardiac cath and signed AMA and left. The patient did not have any evidence of m yocardial injury. The patient was advised to have followup at least as an outpatient. OSEI/ALVAREZ Voice ID: [id number] Report ID: [id number]
== END 2019-10-23 13:20 | disposition left against medical advice (07) ==
LOC: ER 20:09 → ERHOLD 10-22 01:10 → 4TH 10-22 01:46
PROVIDERS: ADMIT Internal Medicine; ATTEND Internal Medicine
DX: R07.9 Chest pain, unspecified (principal); I10 Essential (primary) hypertension; F17.210 Nicotine dependence, cigarettes, uncomplicated; E66.01 Morbid (severe) obesity due to excess calories; Z68.41 Body mass index [BMI] 40.0-44.9, adult; Z53.29 Procedure and treatment not carried out because of patient's decision for other reasons; Z23 Encounter for immunization
CPT/HCPCS: 93005; 93017; 93306; 85025 ×2; 80048; 36415; 83735; 85610; 80061; 84443; 81003; 83036; 84484 ×4; 82553 ×3; 80053; 83880; 71275; 74175; 71045; 90471; 94760 ×2; 78452; 96374; 99285; Q9967; Q2035; J2270; J2785; J7030; A9500; G0378 ×3; J0583; J1650; J2250; J3010

== ENCOUNTER 2019-11-19 15:32 | Observation (INO) | payer BC ==
--- OUTSIDE RECORDS SUMMARY | 2019-11-19 15:34 | XMS REPORT ---
:1975 [facility] Address [address] [place] [address] Dr. [place] [address] [place] [id number] Care Team Providers Name Role Phone Unavailable Unavailable Unavailable Problems This patient has no known problems. Allergies, Adverse Reactions, Alerts This patient has no known allergies or adverse reactions. Medications This patient has no known medications.
[2019-11-19 16:18] LABS: Absolute Lymphocytes (CBC) 1.3 K/uL (0.7-4.9); Basophils % 0.7 % (0-1.3); Hematocrit 44.4 % (39.6-49.0); Lymphocytes % 17.1 % (15.3-44.8); MPV 8.1 fL (7.6-11.3); RBC Red Blood Cell Count 5.32 M/uL (4.33-5.43)
[2019-11-19] MEDS ORDERED: MECLIZINE HCL 12.5 MG TAB ONE (16:18)
[2019-11-19] MEDS ORDERED: METOCLOPRAMIDE 10 MG/2mL INJ ONE (16:18)
[2019-11-19] MEDS ORDERED: DIPHENHYDRAMINE 50 MG/ML VIAL ONE (16:18)
[2019-11-19 16:22] LABS: Protime INR 1.14
[2019-11-19 16:46] LABS: ALT/SGPT 27 U/L (12-78); AST/SGOT 13 U/L (15-37); Albumin 3.7 g/dL (3.4-5.0); Alkaline Phosphatase 64 U/L (45-117); BUN Blood Urea Nitrogen 10 mg/dL (7-18); Bicarbonate 27 mmol/L (21-32); Bilirubin Direct 0.1 mg/dL (0-0.2); Bilirubin Total 0.5 mg/dL (0.2-1.0); Glucose Level 89 mg/dL (74-106); Magnesium 2.3 mg/dL (1.8-2.4); NT PRO-BNP 53 pg/mL (<125); Potassium 3.6 mmol/L (3.5-5.1); Protein, Total 7.1 g/dL (6.4-8.2); Sodium Level 139 mmol/L (136-145); Troponin (Emerg Dept Use Only) < 0.02 ng/mL (0.0-0.045)
[2019-11-19] MEDS ORDERED: ONDANSETRON 4 MG/2 ML VIAL IV PRN (17:06)
--- NOTE | 2019-11-19 17:12 | RAD REPORT ---
EXAM DESCRIPTION: RAD - Chest Single View - 11/19/2019 5:05 pm CLINICAL HISTORY: CHEST PAIN Chest pain. COMPARISON: Chest Single View dated 10/21/2019; Chest Pa And Lat (2 Views) dated 09/27/2019; Chest Pa A nd Lat (2 Views) dated 07/16/2019; Chest Single View dated 01/23/2019 FINDINGS: Portable technique limits examination quality. Mild interstitial pulmonary edema. The heart is mildly enlarged. No displaced fractures. IMPRESSION: Mild CHF.
--- NOTE | 2019-11-19 18:19 | ER ---
Nurse's Notes [facility] Name: Toro Mcghee Age: 44 yrs Sex: Male : 1975 Arrival Date: 11/19/2019 Time: 15:41 Bed 20 Private MD: Diagnosis: Chest pain, unspecified Presentation: 11/19 15:41 Presenting complaint: EMS states: Chest pain started 30 minutes ago with nausea and jl7 dizziness; no ST elevation, gave 324 mg aspirin and .4 Nitro SL, BP dropped from 140 systolic to 80 with the Nitro. Pain was 6/10, now 2/10; reports STACY 7/10 with intermittent dizziness. Transition of care: patient was not received from another setting of care. Onset of symptoms was November 19, 2019 at 15:10. Risk Assessment: Do you want to hurt yourself or someone else? Patient reports no desire to harm self or others. Initial Sepsis Screen: Does the patient meet any 2 criteria? No. Patient's initial sepsis screen is negative. Does the patient have a suspected source of infection? No. Patient's initial sepsis screen is negative. Care prior to arrival: Medication(s) given: ASA, 81 mg, x 4, Normal saline infusion, 200 mL zofran 4 mg, .4 mg Nitro IV initiated. 18 GA, in the right antecubital area. 15:41 Method Of Arrival: EMS: [facility] jl7 15:41 Acuity: GIGI 2 jl7 Triage Assessment: 15:46 General: Appears in no apparent distress. uncomfortable, Behavior is calm, cooperative. jl7 Pain: Complains of pain in anterior aspect of left upper chest Pain does not radiate. Pain currently is 2 out of 10 on a pain scale. at worst was 6 out of 10 on a pain scale. Quality of pain is described as sharp, Pain began 30 min ago. Is continuous. EENT: No signs and/or symptoms were reported regarding the EENT system. Neuro: Level of Consciousness is awake, alert, obeys commands, Oriented to person, place, time, situation, [employer] are equal bilaterally Moves all extremities. Full function Speech is normal, Facial symmetry appears normal, Reports dizziness, headache in right parietal area. Cardiovascular: Heart tones S1 S2 present Patient's skin is warm and dry. Respiratory: Airway is patent Respiratory effort is even, unlabored, Respiratory pattern is regular, symmetrical, Breath sounds are clear bilaterally. GI: Reports nausea. Derm: Skin is dry, Skin is pale, Skin temperature is warm. Historical: - Allergies: 15:46 NKA; jl7 - Home Meds: 15:46 hydrochlorothiazide 12.5 mg Oral cap 1 cap once daily [Active]; losartan 100 mg Oral jl7 tab 1 tab once daily [Active]; metoprolol tartrate 50 mg Oral tab 1 tab 2 times per day [Active]; Simvastatin Oral [Active]; - PMHx: 15:46 abdominal hernia; Hyperlipidemia; Hypertension; jl7 - PSHx: 15:46 Tonsillectomy; Appendectomy; jl7 - Immunization history:: Adult Immunizations up to date. - Coronavirus screen:: The patient has NOT traveled to [place] in the past 14 days. Proceed with normal triage process as indicated. - Social history:: Patient/guardian denies using alcohol, street drugs, The patient lives with family, with spouse, Smoking status: Patient reports the use of cigarette tobacco products, 4 or 5 cigarettes/day. - Family history:: not pertinent. - Ebola Screening: : No symptoms or risks identified at this time. Screenin:54 Abuse screen: Denies threats or abuse. Denies injuries from another. Nutritional jl7 screening: No deficits noted. Tuberculosis screening: No symptoms or risk factors identified. Fall Risk IV access (20 points). Total Dickey Fall Scale indicates No Risk (0-24 pts). Assessment: 15:50 General: See triage assessment. jl7 15:54 Reassessment: Pt states "My head is hurting back here now." Pt points to occipital jl7 area, reports nausea has resolved. 17:00 Reassessment: Patient appears in no apparent distress at this time. Patient and/or jl7 family updated on plan of care and expected duration. Pain level reassessed. Patient is alert, oriented x 3, equal unlabored respirations, skin warm/dry/pink. Patient denies pain at this time. Patient states feeling better. 18:00 Reassessment: Patient appears in no apparent distress at this time. No changes from jl7 previously documented assessment. Patient and/or family updated on plan of care and expected duration. Pain level reassessed. Patient is alert, oriented x 3, equal unlabored respirations, skin warm/dry/pink. Vital Signs: 15:46 BP 116 / 102; Pulse 83; Resp 17 S; Temp 98.2(O); Pulse Ox 95% on R/A; Weight 147.42 kg jl7 (R); Height 6 ft. (182.88 cm) (R); Pain 2/10; 18:00 BP 106 / 64; Pulse 59; Resp 16 S; Pulse Ox 100% on R/A; jl7 15:46 Body Mass Index 44.08 (147.42 kg, 182.88 cm) [facility] ED Course: 15:41 Patient arrived in ED. jl7 15:45 Triage completed. jl7 15:46 Mk Ramirez MD is Attending Physician. ma2 15:46 Arm band placed on right wrist. jl7 15:54 Patient has correct armband on for positive identification. Bed in low position. Call [facility] light in reach. Side rails up X2. alarm security or surveillance monitor on. Pulse ox on. NIBP on. 15:54 Maintain EMS IV. Dressing intact. Good blood return noted. Site clean \\T\\ dry. Gauge \\T\\ jl 7 site: 18 right AC. Patient maintains SpO2 saturation greater than 95% on room air. 15:55 Radha Adams RN is Primary Nurse. 7 16:10 Initial lab(s) drawn, by al, sent to lab. 7 17:03 Gomez Hoffman MD is Hospitalizing Provider. [facility] 18:00 No provider procedures requiring assistance completed. Patient admitted, IV remains in [facility] place. intact, No redness/swelling at site. Administered Medications: 16:10 Drug: NS 0.9% 1000 ml Route: IV; Rate: 1 bolus; Site: right antecubital; 7 17:15 Follow up: Response: No adverse reaction; IV Status: Completed infusion; IV Intake: 7 1000ml 16:15 Drug: Benadryl 25 mg Route: IVP; Site: right antecubital; [facility] 16:45 Follow up: Response: No adverse reaction; Marked relief of symptoms 7 16:18 Drug: Reglan 10 mg Route: IVP; Site: right antecubital; [facility] 16:45 Follow up: Response: No adverse reaction; Marked relief of symptoms [facility] 16:21 Drug: Meclizine 50 mg Route: PO; 7 16:45 Follow up: Response: No adverse reaction; Marked relief of symptoms [email or web address] Intake: 17:15 IV: 1000ml; Total: 1000ml. mehdi Outcome: 17:03 Decision to Hospitalize by Provider. paulina 18:35 Admitted to Tele accompanied by tech, via wheelchair, room 419, with chart, Report jl7 called to JOSÉ White 18:35 Condition: stable 18:35 Discharge instructions given to patient, Instructed on the need for admit, Demonstrated understanding of instructions. 18:36 Patient left the ED. mehdi Signatures: Radha Adams RN RN jl7 Mk Ramirez MD MD ma2
--- NOTE | 2019-11-19 18:20 | EDPHYS ---
Physician Documentation [facility] Name: Toro Mcghee Age: 44 yrs Sex: Male : 1975 Arrival Date: 11/19/2019 Time: 15:41 Bed 20 Private MD: ED Physician Mk Ramirez HPI: 11/19 16:57 This 44 yrs old Male presents to ER via EMS with complaints of Chest Pain. ma2 16:57 The patient or guardian reports chest pain that is located primarily in the substernal ma2 area. Onset: gradually. The pain does not radiate. Associated signs and symptoms: Pertinent negatives: diaphoresis, lower extremity pain, shortness of breath, vomiting. The chest pain is described as aching. Severity of pain: At its worst the pain was very mild in the emergency department the pain has resolved. The patient has experienced similar episodes in the past. Historical: - Allergies: 15:46 NKA; jl7 - Home Meds: 15:46 hydrochlorothiazide 12.5 mg Oral cap 1 cap once daily [Active]; losartan 100 mg Oral jl7 tab 1 tab once daily [Active]; metoprolol tartrate 50 mg Oral tab 1 tab 2 times per day [Active]; Simvastatin Oral [Active]; - PMHx: 15:46 abdominal hernia; Hyperlipidemia; Hypertension; jl7 - PSHx: 15:46 Tonsillectomy; Appendectomy; jl7 - Immunization history:: Adult Immunizations up to date. - Coronavirus screen:: The patient has NOT traveled to [place] in the past 14 days. Proceed with normal triage process as indicated. - Social history:: Patient/guardian denies using alcohol, street drugs, The patient lives with family, with spouse, Smoking status: Patient reports the use of cigarette tobacco products, 4 or 5 cigarettes/day. - Family history:: not pertinent. - Ebola Screening: : No symptoms or risks identified at this time. ROS: 16:57 Constitutional: Negative for fever, chills, and weight loss, Cardiovascular: Negative ma2 for chest pain, palpitations, and edema, Respiratory: Negative for shortness of breath, cough, wheezing, and pleuritic chest pain, Abdomen/GI: Negative for abdominal pain, nausea, diarrhea, and constipation. 16:57 All other systems are negative. Exam: 16:57 Constitutional: This is a well developed, well nourished patient who is awake, alert, ma2 and in no acute distress. Chest/axilla: Normal chest wall appearance and motion. Nontender with no deformity. No lesions are appreciated. Cardiovascular: Regular rate and rhythm with a normal S1 and S2. No gallops, murmurs, or rubs. Normal PMI, no JVD. No pulse deficits. Respiratory: Lungs have equal breath sounds bilaterally, clear to auscultation and percussion. No rales, rhonchi or wheezes noted. No increased work of breathing, no retractions or nasal flaring. Abdomen/GI: Soft, non-tender, with normal bowel sounds. No distension or tympany. No guarding or rebound. No evidence of tenderness throughout. Vital Signs: 15:46 BP 116 / 102; Pulse 83; Resp 17 S; Temp 98.2(O); Pulse Ox 95% on R/A; Weight 147.42 kg jl7 (R); Height 6 ft. (182.88 cm) (R); Pain 2/10; 18:00 BP 106 / 64; Pulse 59; Resp 16 S; Pulse Ox 100% on R/A; jl7 15:46 Body Mass Index 44.08 (147.42 kg, 182.88 cm) jl7 MDM: 15:46 Patient medically screened. ma2 16:57 Differential diagnosis: abnormal EKG, acute pericarditis, anxiety, chest wall pain, ma2 gastritis, gastroesophageal reflux disease (GERD), stable angina, unstable angina. HEART Score: History: Moderately Suspicious (1), ECG: Normal (0), Troponin: < or = 1 x Normal Limit (0). The patient was not given aspirin in the Emergency Department. Administered by EMS. GENEVIEVE Risk Score: 1 - patient's age is greater or equal to 65 years. Data reviewed: vital signs, nurses notes, lab test result(s), EKG, radiologic studies. Counseling: I had a detailed discussion with the patient and/or guardian regarding: the historical points, exam findings, and any diagnostic results supporting the discharge/admit diagnosis, the presence of at least one elevated blood pressure reading (>120/80) during this emergency department visit, the need for outpatient follow up. Response to treatment: the patient's symptoms have mildly improved after treatment. 17:04 ED course: discussed with dr. Peace. ar11/19 16:18 Order name: Basic Metabolic Panel; Complete Time: 16:55 EDMS 11/19 16:18 Order name: Liver (Hepatic) Function; Complete Time: 16:55 MS 11/19 16:19 Order name: Troponin (Emerg Dept Use Only); Complete Time: 16:55 MS 11/19 16:19 Order name: NT PRO-BNP; Complete Time: 16:55 MS 11/19 16:19 Order name: Magnesium; Complete Time: 16:55 MS 11/19 16:19 Order name: CBC with Automated Diff; Complete Time: 16:45 MS 11/19 16:19 Order name: Protime (+INR); Complete Time: 16:45 11/19 15:47 Order name: XRAY Chest (1 view) ar11/19 15:47 Order name: EKG; Complete Time: 16:42 ar11/19 15:47 Order name: Cardiac monitoring; Complete Time: 15:56 ar11/19 15:47 Order name: EKG - Nurse/Tech; Complete Time: 16:21 ar11/19 15:47 Order name: IV Saline Lock; Complete Time: 15:56 ar11/19 15:47 Order name: Labs collected and sent; Complete Time: 16:21 ar11/19 15:47 Order name: O2 Per Protocol; Complete Time: 15:57 11/19 15:47 Order name: O2 Sat Monitoring; Complete Time: 15:57 ma Administered Medications: 16:10 Drug: NS 0.9% 1000 ml Route: IV; Rate: 1 bolus; Site: right antecubital; jl7 17:15 Follow up: Response: No adverse reaction; IV Status: Completed infusion; IV Intake: jl7 1000ml 16:15 Drug: Benadryl 25 mg Route: IVP; Site: right antecubital; jl7 16:45 Follow up: Response: No adverse reaction; Marked relief of symptoms jl7 16:18 Drug: Reglan 10 mg Route: IVP; Site: right antecubital; jl7 16:45 Follow up: Response: No adverse reaction; Marked relief of symptoms jl7 16:21 Drug: Meclizine 50 mg Route: PO; jl7 16:45 Follow up: Response: No adverse reaction; Marked relief of symptoms jl7 Disposition: 11/19/19 17:03 Hospitalization ordered by Gomez Hoffman for Observation. Preliminary diagnosis is Chest pain, unspecified. - Bed requested for Telemetry/MedSurg (observation). - Status is Observation. jl7 - Condition is Stable. - Problem is new. - Symptoms are unchanged. Signatures: Dispatcher [employer] EDMS Allie Jensen Jahala, RN RN jl7 Mk Ramirez MD MD ar2 Corrections: (The following items were deleted from the chart) 17:35 16:42 BASIC METABOLIC PANEL+C.LAB.BRZ ordered. EDMS EDMS 17:37 16:42 CBC+H.LAB.BRZ ordered. EDMS EDMS 17:38 16:42 HEPATIC FUNCTION+C.LAB.BRZ ordered. EDMS EDMS 17:38 16:42 MAGNESIUM+C.LAB.BRZ ordered. EDMS EDMS 17:38 16:42 PROBNP+C.LAB.BRZ ordered. EDMS EDMS 17:38 16:42 PROTIME (+INR)+COAG.LAB.BRZ ordered. EDMS EDMS 17:39 16:42 TROPONIN (EMERG DEPT USE ONLY)+C.LAB.BRZ ordered. EDMS EDMS 17:57 17:03 Hospitalization Ordered by Gomez Hoffman MD for Observation. Preliminary diagnosis bd is Chest pain, unspecified. Bed requested for Telemetry/MedSurg (observation). Status is Observation. Condition is Stable. Problem is new. Symptoms are unchanged. ma2 18:36 17:57 11/19/2019 17:03 Hospitalization Ordered by Gomez Hoffman MD for Observation. jl7 Preliminary diagnosis is Chest pain, unspecified. Bed requested for Telemetry/MedSurg (observation). Status is Observation. Condition is Stable. Problem is new. Symptoms are unchanged. bd
[2019-11-19 21:27] VITALS: BMI 43.0
[2019-11-19 23:07] VITALS: O2SAT 95
[2019-11-20 04:28] LABS: Absolute Lymphocytes (CBC) 2.2 K/uL (0.7-4.9); Basophils % 0.7 % (0-1.3); Hematocrit 43.6 % (39.6-49.0); MPV 8.4 fL (7.6-11.3); RBC Red Blood Cell Count 5.05 M/uL (4.33-5.43)
[2019-11-20 04:37] LABS: BUN Blood Urea Nitrogen 12 mg/dL (7-18); Bicarbonate 29 mmol/L (21-32); Glucose Level 100 mg/dL (74-106); Potassium 3.9 mmol/L (3.5-5.1); Sodium Level 141 mmol/L (136-145)
[2019-11-20 08:25] VITALS: BP 110/77; TEMP 97.2
--- NOTE | 2019-11-20 08:43 | EKG ---
Test Date: 2019-11-19 Test Time: 16:09:55 Chairlift Operator: HARISH MEASUREMENT RESULTS: Intervals: Rate: 69 VT: 156 QRSD: 86 QT: 384 QTc: 411 [place]: P: 32 VT: 156 QRS: 7 T: 39 INTERPRETIVE STATEMENTS: Normal sinus rhythm with sinus arrhythmia Nonspecific T wave abnormality Abnormal ECG Compared to ECG 10/21/2019 20:17:11 T-wave abnormality now present Electronically Signed On 11-20-19 08:41:25 [address] [facility] [employer] by Jose Roberto Bravo
[2019-11-20] MEDS ORDERED: ASPIRIN EC 81 MG TAB PO SCH (09:00)
[2019-11-20] MEDS ORDERED: VALSARTAN 160 MG TAB PO SCH (09:00)
[2019-11-20] MEDS ORDERED: hydroCHLOROthiazide 12.5 MG CAP PO SCH (09:00)
[2019-11-20] MEDS ORDERED: METOPROLOL TAR 50 MG TAB PO SCH (09:00)
--- NOTE | 2019-11-20 12:02 | CON ---
Date of Consultation: 11/20/2019 The patient was admitted on 11/19/[address] Hoffman. I saw the patient on 11/20/2019. Reason For Consultation: Atypical chest pain. History Of Present Illness: Mr. Mcghee is a 44-year-old white male. In September of 2019, he had a p ositive stress test because of chest pain, but signed out AMA and did not want to have a heart cathet erization. At this time, he comes in mostly with vertigo and nausea. He had 1 episode of sharp ches t pain that lasted seconds. Denied any vomiting. Denied any PND, orthopnea, pedal edema, palpitatio ns, or syncope. Before I even discussed the catheterization, Mr. Mcghee indicated that he has no in terest of having it done because of claustrophobia and will only do it under general anesthesia and d efinitely does not want to do it today. Past Medical History: Include hypertension, cholesterol. Review of Systems: Negative. Social History: Negative. Family History: Negative. Medications: At home include aspirin, Zocor, metformin, telmisartan, hydrochlorothiazide. Physical Examination: General: He weighed 317 pounds. HEENT: Negative. Vital Signs: Stable. Afebrile. Chest: Clear. Cardiac exam revealed regular rhythm and rate. No murmurs, gallops, or rubs. Abdomen: Benign. Extremities: Revealed no clubbing, cyanosis, or edema. Diagnostic Data: All within normal limits. Impression And Plan: 1.Benign positional vertigo. 2.Hypertension. 3.Dyslipidemia. 4.History of positive stress test. 5.Obesity. I am not very impressed with his chest pain during this visit and he refuses a heart catheterization anyway. I elected to treat him medically and would treat him with his present regimen. He can go ho me today. Follow up in our office in the next 2 weeks. One thing I suggested is maybe to take him o ff aspirin as he complains of bilateral tinnitus in both of his ears. Certainly, that may be a react ion to aspirin. I will leave his other treatment up to Dr. Hoffman. He can go home today. TOO/MODL Voice ID: [id number] Report ID: [id number]
[2019-11-20] MEDS ORDERED: ATORVASTATIN 20 MG TAB PO SCH (21:00)
--- NOTE | 2019-11-20 22:23 | HP ---
Date of Admission: 11/19/2019 Chief Complaint: Dizziness, vertigo, chest pain, hypertension. History Of Present Illness: This patient was in the hospital in September, had a positive stress test, however he signed AMA, for heart catheterization. He came because of nausea, vertigo, as well as ch est pain. The patient was seen in the emergency room and admitted. Past Medical History: Positive for hypertension and hyperlipidemia. Family History: Noncontributory. Personal History: Nonsmoker. Home Medicines: Simvastatin, aspirin, metformin, telmisartan, hydrochlorothiazide. Review of Systems: No history of fever, chills, rigors. Physical Examination: General: Revealed a -eihq-efj male, moderately obese. Vital Signs: Normal. HEENT: Negative. Neck: Supple. JVD negative. Chest: Clear. Heart: Regular. Abdomen: Soft. Extremities: No edema. Neurological: Negative. Laboratory Data: Troponin normal. CBC normal. Chest x-ray normal. Assessment: 1.Dizziness, vertigo. 2.Chest pain. 3.Hypertension. 4.Hyperlipidemia. 5.Obesity. 6.Positive stress test. Plan: The patient had consultation with Cardiology Service. The patient was not interested in any w orkup. The patient was advised to follow up with Dr. Bravo in the office. OSEI/ALVAREZ Voice ID: [id number]
== END 2019-11-20 11:26 | disposition home or self-care (01) ==
LOC: ER 15:32 → ERHOLD 17:07 → 4TH 18:20
PROVIDERS: ADMIT Internal Medicine; ATTEND Internal Medicine
DX: R42 Dizziness and giddiness (principal); R07.9 Chest pain, unspecified; I10 Essential (primary) hypertension; E78.5 Hyperlipidemia, unspecified; E66.9 Obesity, unspecified; Z68.41 Body mass index [BMI] 40.0-44.9, adult
CPT/HCPCS: 96361; 93005; 85025 ×2; 80048 ×2; 36415; 83735; 85610; 80076; 84484 ×3; 83880; 71045; 96375; 96374; 99285; J2765; J1200; G0378 ×3

== ENCOUNTER 2020-02-23 19:10 | Emergency (ER) | payer BC ==
--- OUTSIDE RECORDS SUMMARY | 2020-02-23 19:12 | XMS REPORT ---
:1975 Author Organization [facility] t Address [address] [place] [address] Care Team Providers Name Role Phone Benedicto Mayers MD Attending Clinician Problems This patient has no known problems. Allergies, Adverse Reactions, Alerts This patient has no known allergies or adverse reactions. Medications This patient has no known medications. Procedures This patient has no known procedures. Encounters Start End Encounter Admission Attending Care Care Encounter Source Date/Time Date/Time Type Type Clinicians Facility Department ID 2019-06-14 2019-06-14 Telephone Talib JOHN [id number] 00:00:00 00:00:00 Jean Paul Gregory [id number] [place] [id number] [facility] [phone] nal 092 Building 2019-06-08 2019-06-08 Office Talib JOHN [id number] 09:36:26 11:23:11 Visit Jean Paul Gregory [id number] [place] [id number] [facility] [phone] nal 092 [facility] Results This patient has no known results.
--- NOTE | 2020-02-23 20:39 | RAD REPORT ---
EXAM DESCRIPTION: RAD - Wrist Right 3 View - 02/23/2020 8:24 pm CLINICAL HISTORY: injury Pain COMPARISON: No comparisons FINDINGS: No fracture or dislocation seen. No foreign body or other soft tissue abnormality. IMPRESSION: Negative examination.
[2020-02-23 21:43] VITALS: BP 142/70; TEMP 97.7; O2SAT 100
--- NOTE | 2020-02-25 18:18 | EDPHYS ---
Physician Documentation [facility] Name: Toro Mcghee Age: 44 yrs Sex: Male : 1975 Arrival Date: 02/23/2020 Time: 19:18 Bed 12 Private MD: ED Physician Rod Garcia HPI: 02/22 20:33 This 44 yrs old Male presents to ER via Ambulatory with complaints of Wrist mh7 Injury. 20:33 The patient or guardian reports injury. The complaints affect the right wrist mh7 diffusely. Context: The problem was sustained outdoors, resulted from a direct blow, by a solid object, tree limb. Onset: The symptoms/episode began/occurred last week. Modifying factors: The symptoms are alleviated by nothing, the symptoms are aggravated by movement. Associated signs and symptoms: Pertinent negatives: cyanosis distally, decreased sensation distally, fever, nausea, numbness distally, tingling distally, vomiting. Compartment Syndrome negative for numbness, tingling. Patient states that he was breaking tree limbs with his hands when one of then snapped and hit him on the right wrist. He denies any other injuries.. Historical: - Allergies: 19:30 NKA; sg - PMHx: 19:30 abdominal hernia; Hyperlipidemia; Hypertension; sg - PSHx: 19:30 Tonsillectomy; Appendectomy; sg - Immunization history:: Adult Immunizations up to date. - Social history:: Smoking status: Patient denies any tobacco usage or history of. ROS: 20:33 Constitutional: Negative for fever, chills, and weight loss, Eyes: Negative for injury, mh7 pain, redness, and discharge, ENT: Negative for injury, pain, and discharge, Neck: Negative for injury, pain, and swelling, Cardiovascular: Negative for chest pain, palpitations, and edema, Respiratory: Negative for shortness of breath, cough, wheezing, and pleuritic chest pain, Abdomen/GI: Negative for abdominal pain, nausea, vomiting, diarrhea, and constipation, Back: Negative for injury and pain, : Negative for injury, bleeding, discharge, and swelling, Skin: Negative for injury, rash, and discoloration, Neuro: Negative for headache, weakness, numbness, tingling, and seizure, Psych: Negative for depression, anxiety, suicide ideation, homicidal ideation, and hallucinations, Allergy/Immunology: Negative for hives, rash, and allergies, Endocrine: Negative for neck swelling, polydipsia, polyuria, polyphagia, and marked weight changes, Hematologic/Lymphatic: Negative for swollen nodes, abnormal bleeding, and unusual bruising. Exam: 20:33 Constitutional: This is a well developed, well nourished patient who is awake, alert, mh7 and in no acute distress. Head/Face: Normocephalic, atraumatic. Neck: Trachea midline, no thyromegaly or masses palpated, and no cervical lymphadenopathy. Supple, full range of motion without nuchal rigidity, or vertebral point tenderness. No Meningismus. Chest/axilla: Normal chest wall appearance and motion. Nontender with no deformity. No lesions are appreciated. Cardiovascular: Regular rate and rhythm with a normal S1 and S2. No gallops, murmurs, or rubs. Normal PMI, no JVD. No pulse deficits. Respiratory: Lungs have equal breath sounds bilaterally, clear to auscultation and percussion. No rales, rhonchi or wheezes noted. No increased work of breathing, no retractions or nasal flaring. Abdomen/GI: Soft, non-tender, with normal bowel sounds. No distension or tympany. No guarding or rebound. No evidence of tenderness throughout. Back: No spinal tenderness. No costovertebral tenderness. Full range of motion. Skin: Warm, dry with normal turgor. Normal color with no rashes, no lesions, and no evidence of cellulitis. 20:33 Neuro: Awake and alert, GCS 15, oriented to person, place, time, and situation. Cranial nerves II-XII grossly intact. Motor strength 5/5 in all extremities. Sensory grossly intact. Cerebellar exam normal. Normal gait. Psych: Awake, alert, with orientation to person, place and time. Behavior, mood, and affect are within normal limits. 20:33 Musculoskeletal/extremity: Extremities: noted in the right dorsal lateral wrist: pain, tenderness, ROM: limited active range of motion due to pain, in the right wrist, limited passive range of motion due to pain, in the right wrist, Circulation is intact in all extremities. Pulses: are normal with no appreciated deficits, Perfusion: the patient is normally perfused throughout, Perfusion: the extremity is normally perfused throughout, Sensation intact. Compartment Syndrome exam of affected extremity: is normal. no numbness, no tingling, no sensation deficit, no palor, no weak pulses, Joints: the right wrist displays painful range of motion, tenderness, Weight bearing: able to fully bear weight, without difficulty, Tendon exam: specific tendon testing normal through active and passive range of motion Vital Signs: 19:30 BP 142 / 70; Pulse 77; Resp 18; Temp 97.7; Pulse Ox 100% on R/A; Pain 8/10; sg MDM: 19:53 Patient medically screened. [facility] 21:15 Differential diagnosis: dislocation, closed fracture, contusion, tendonitis, sprain. [facility] Data reviewed: vital signs, nurses notes, radiologic studies, plain films. 02/22 19:54 Order name: Wrist Right 3 View XRAY; Complete Time: 20:53 [facility] 02/22 21:15 Order name: Splint - Thumb Spica; Complete Time: 21:31 [facility] Administered Medications: No medications were administered Disposition: 02/23/20 21:17 Discharged to Home. Impression: Contusion of right wrist. - Condition is Stable. - Discharge Instructions: Wrist Splint, [id number], Contusion, [id number], Wrist Pain, Eelb-[id number]. - Medication Reconciliation Form, Thank You Letter, Antibiotic Education, Prescription Opioid Use form. - Follow up: Private Physician; When: 1 - 2 days; Reason: Worsening of condition, Re-evaluation by your physician. Follow up: Kei Al MD; When: 1 - 2 days; Reason: Worsening of condition, Recheck today's complaints. - Problem is new. - Symptoms have improved. Signatures: Dispatcher [employer] EDMS Kei Joe, RN RN Nick East RN RN rv Rod Garcia MD MD [facility] Corrections: (The following items were deleted from the chart) 21:31 21:17 02/23/2020 21:17 Discharged to Home. Impression: Contusion of right wrist. rv Condition is Stable. Forms are Medication Reconciliation Form, Thank You Letter, Antibiotic Education, Prescription Opioid Use. Follow up: Private Physician; When: 1 - 2 days; Reason: Worsening of condition, Re-evaluation by your physician. Follow up: Kei lA; When: 1 - 2 days; Reason: Worsening of condition, Recheck today's complaints. Problem is new. Symptoms have improved. mh7
--- NOTE | 2020-02-25 18:18 | ER ---
Nurse's Notes [facility] Name: Toro Mcghee Age: 44 yrs Sex: Male : 1975 Arrival Date: 02/23/2020 Time: 19:18 Bed 12 Private MD: Diagnosis: Contusion of right wrist Presentation: 02/22 19:30 Acuity: GIGI 4 sg 19:30 Chief complaint: Patient states: pain to the right wrist. Coronavirus screen: Proceed sg with normal triage. Ebola Screen: Patient negative for fever greater than or equal to 101.5 degrees Fahrenheit, and additional compatible Ebola Virus Disease symptoms Patient denies exposure to infectious person. Patient denies travel to an Ebola-affected area in the 21 days before illness onset. No symptoms or risks identified at this time. Initial Sepsis Screen: Does the patient meet any 2 criteria? No. Patient's initial sepsis screen is negative. Does the patient have a suspected source of infection? No. Patient's initial sepsis screen is negative. Risk Assessment: Do you want to hurt yourself or someone else? Patient reports no desire to harm self or others. Onset of symptoms was February 23, 2020. Care prior to arrival: None. Transition of care: patient was not received from another setting of care. 19:30 Method Of Arrival: Ambulatory sg Triage Assessment: 21:30 General: Appears comfortable. Injury Description: none. rv Historical: - Allergies: 19:30 NKA; sg - PMHx: 19:30 abdominal hernia; Hyperlipidemia; Hypertension; sg - PSHx: 19:30 Tonsillectomy; Appendectomy; sg - Immunization history:: Adult Immunizations up to date. - Social history:: Smoking status: Patient denies any tobacco usage or history of. Screenin:28 Abuse screen: Denies threats or abuse. Denies injuries from another. Nutritional rv screening: No deficits noted. Tuberculosis screening: No symptoms or risk factors identified. Fall Risk None identified. Assessment: 20:27 General: Appears comfortable, Behavior is calm, cooperative. Pain: Complains of pain in rv right wrist. Neuro: Level of Consciousness is awake, alert, obeys commands, Oriented to person, place, time, situation. Respiratory: Airway is patent. Musculoskeletal: Swelling absent. Vital Signs: 19:30 BP 142 / 70; Pulse 77; Resp 18; Temp 97.7; Pulse Ox 100% on R/A; Pain 8/10; sg ED Course: 19:18 Patient arrived in ED. bp1 19:30 Triage completed. sg 19:40 Nick Conrad, RN is Primary Nurse. rv 19:40 Arm band placed on. sg 19:42 Rod Garcia MD is Attending Physician. mh7 20:24 Wrist Right 3 View XRAY In Process Unspecified. EDMS 20:28 Patient has correct armband on for positive identification. rv 21:16 Kei Al MD is Referral Physician. mh7 21:30 No provider procedures requiring assistance completed. Patient did not have IV access rv during this emergency room visit. Velcro wrist splint applied to right wrist. Administered Medications: No medications were administered Outcome: 21:17 Discharge ordered by . mh7 21:30 Discharged to home ambulatory. rv 21:30 Condition: good 21:30 Discharge instructions given to patient, Instructed on discharge instructions, follow up and referral plans. Demonstrated understanding of instructions, follow-up care, splint care. 21:31 Patient left the ED. rv Signatures: Dispatcher [employer] EDMS Kei Joe, RN RN Nick Conrad, RN RN Kasia Elena [facility] Rod Garcia MD MD [facility]
== END 2020-02-23 21:31 | disposition home or self-care (01) ==
LOC: ER 19:10
DX: S60.211A Contusion of right wrist, initial encounter (principal); W22.8XXA Striking against or struck by other objects, initial encounter; Y93.9 Activity, unspecified; Y92.89 Other specified places as the place of occurrence of the external cause; I10 Essential (primary) hypertension
CPT/HCPCS: 99283

== ENCOUNTER 2020-11-20 21:51 | Emergency (ER) | payer BC, OTHER, SELFPAY ==
--- OUTSIDE RECORDS SUMMARY | 2020-11-20 21:53 | XMS REPORT | Continuity of Care Document ---
:1975 Author Organization [facility] t Address [address] [place] [address] [place] [id number] Care Team Providers Name Role Phone Benedicto [...] 2019-06-14 2019-06-14 Telephone Talib JOHN [id number] 00:00:00 00:00:00 Jean Paul Gregory [id number] [place] [id number] essyesika [phone] nal 092 Building 2019-06-08 2019-06-08 Office Talib, JOHN [id number] 09:36:26 11:23:11 Visit Jean Paul Gregory [id number] [place] [id number] Professio [phone] nal 092 [facility] Results This patient has no known results.
[2020-11-21 00:10] LABS: SARS-COV-2 RT PCR POSITIVE (NEGATIVE)
--- NOTE | 2020-11-21 00:32 | EDPHYS ---
Physician Documentation [facility] Name: Toro Mcghee Age: 45 yrs Sex: Male : 1975 Arrival Date: 11/20/2020 Time: 21:54 Bed 12 Private MD: ED Physician Jaspreet Huber HPI: 11/20 23:41 This 45 yrs old Male presents to ER via Ambulatory with complaints of Fever. jmm 23:41 The patient reports fever, not measured (subjective). Onset: The symptoms/episode jmm began/occurred gradually, 1 week(s) ago. Modifying factors: there are no obvious modifying factors. Associated signs and symptoms: Pertinent positives: cough, sinus congestion. The patient has not experienced similar symptoms in the past. This is a 45 year old male with a history of hlp, htn that presents to the ED with complaints of cough, congestion, fever beginning approx 1 week ago. Denies SOB. Denies ST. . Historical: - Allergies: 22:02 NKA; ca1 - Home Meds: 22:02 losartan 100 mg Oral cap 1 tab once daily [Active]; metoprolol tartrate 50 mg Oral cap ca1 1 tab 2 times per day [Active]; Simvastatin Oral [Active]; hydrochlorothiazide 12.5 mg Oral cap 1 cap once daily [Active]; - PMHx: 22:02 abdominal hernia; Hyperlipidemia; Hypertension; ca1 - PSHx: 22:02 Tonsillectomy; Appendectomy; ca1 - Immunization history:: Flu vaccine is not up to date. - Social history:: Smoking status: Patient reports the use of cigarette tobacco products, smokes one-half pack cigarettes per day. ROS: 23:41 Constitutional: Positive for fever. jmm 23:41 ENT: Positive for sinus congestion. 23:41 Respiratory: Positive for cough. 23:41 Abdomen/GI: Negative for abdominal pain, nausea and vomiting, diarrhea. 23:41 All other systems are negative. Exam: 23:41 Constitutional: This is a well developed, well nourished patient who is awake, alert, jmm and in no acute distress. Head/Face: atraumatic. Eyes: EOMI, no conjunctival erythema appreciated ENT: Moist Mucus Membranes Neck: Trachea midline, Supple Chest/axilla: Normal chest wall appearance and motion. 23:41 Respiratory: Normal respirations, no respiratory distress appreciated Abdomen/GI: Non distended, soft Back: Normal ROM Skin: General appearance color normal MS/ Extremity: Moves all extremities, no obvious deformities appreciated, no edema noted to the lower extremities Neuro: Awake and alert, normal gait Psych: Behavior is normal, Mood is normal, Patient is cooperative and pleasant 23:41 Cardiovascular: Rate: tachycardic, Rhythm: regular. Vital Signs: 21:59 BP 154 / 102; Pulse 128; Resp 19 S; Temp 103.2(O); Pulse Ox 95% on R/A; Weight 139.71 ca1 kg (R); Height 5 ft. 11 in. (180.34 cm) (R); Pain 0/10; 23:38 BP 142 / 87; Pulse 108; Resp 18; Temp 100.9; Pulse Ox 95% ; sg 11/21 00:38 BP 138 / 77; Pulse 89; Resp 18; Temp 98.9(TE); Pulse Ox 97% on R/A; Pain 0/10; sg 11/20 21:59 Body Mass Index 42.96 (139.71 kg, 180.34 cm) ca1 MDM: 11/20 22:30 Patient medically screened. [facility] 11/21 00:30 Data reviewed: vital signs, nurses notes. Counseling: I had a detailed discussion with barbara the patient and/or guardian regarding: the historical points, exam findings, and any diagnostic results supporting the discharge/admit diagnosis, lab results, the need for outpatient follow up, to return to the emergency department if symptoms worsen or persist or if there are any questions or concerns that arise at home. ED course: Patient is alert and non toxic in appearance in the ED. No signs of resp distress. Advised to follow up with pcp and self quarantine. patient is otherwise given strict return precautions. Patient understood and agrees with the plan. . 11/20 22:30 Order name: Chest Single View XRAY [facility] 11/21 00:11 Order name: COVID-19/FLU A+B; Complete Time: 00:17 EDMS Administered Medications: 11/20 22:18 Drug: Tylenol 1000 mg Route: PO; ca1 23:38 Follow up: Response: No adverse reaction; Temperature is decreased 11/21 00:30 Drug: Decadron 10 mg Route: IM; Site: right deltoid; sg Disposition: 11/21/20 00:31 Discharged to Home. Impression: Coronavirus infection, unspecified. - Condition is Stable. - Discharge Instructions: COVID-19. - Prescriptions for ivermectin 3 mg Oral tablet - take 6 tablet by ORAL route as directed one dose on day one and one dose on day three; 12 tablet. Prednisone 20 mg Oral Tablet - take 3 tablet by ORAL route once daily for 5 days; 15 tablet. Zithromax Z- Mik 250 mg Oral Tablet - take 1 tablet by ORAL route as directed for 5 days Day 1 - take two (2) tablets one time. Day 2, 3, 4 , 5 take one (1) tablet once daily.; 6 tablet. Albuterol Sulfate 90 mcg/actuation - inhale 1-2 puff by INHALATION route every 4-6 hours; 1 Inhaler. - Medication Reconciliation Form, Thank You Letter, Antibiotic Education, Prescription Opioid Use form. - Follow up: Private Physician; When: 2 - 3 days; Reason: Recheck today's complaints, Continuance of care, Re-evaluation by your physician. Addendum: 11/24/2020 06:08 Co-signature as Attending Physician, Jaspreet Huber MD I agree with the assessment and c noe plan of care. Signatures: Dispatcher [employer] EDID Kei Joe RN RN sg Anderson, Corey, MD MD cha Mickail, Joel, PA PA [facility] Carol Nagy RN RN ca1 Corrections: (The following items were deleted from the chart) 11/20 22:33 22:31 Influenza Screen (A \T\ B)+BA.LAB.BRZ ordered. [facility] 22:34 22:31 CORONAVIRUS+MR.LAB.BRZ ordered. [facility] 11/21 00:42 00:31 11/21/2020 00:31 Discharged to Home. Impression: Coronavirus infection, sg unspecified. Condition is Stable. Forms are Medication Reconciliation Form, Thank You Letter, Antibiotic Education, Prescription Opioid Use. Follow up: Private Physician; When: 2 - 3 days; Reason: Recheck today's complaints, Continuance of care, Re-evaluation by your physician. barbara
--- NOTE | 2020-11-21 00:32 | ER ---
Nurse's Notes [facility] Name: Toro Mcghee Age: 45 yrs Sex: Male : 1975 Arrival Date: 11/20/2020 Time: 21:54 Bed 12 Private MD: Diagnosis: Coronavirus infection, unspecified Presentation: 11/20 21:59 Chief complaint: Patient states: cough and congestion x 1 week. Cough, bodyaches and ca1 chills x 5 days. fever today. Took Tylenol Extra strength x 2 at 1800 - 1900 today. S/S started 11/07/2020. Coronavirus screen: Client denies travel out of the [place] in the last 14 days. chills, congestion, cough unrelated to allergies, fatigue, fever, muscle pain, Client presents with at least one sign or symptom that may indicate coronavirus-19. Standard/surgical mask placed on the client. Provider contacted for isolation considerations. Ebola Screen: Patient negative for fever greater than or equal to 101.5 degrees Fahrenheit, and additional compatible Ebola Virus Disease symptoms Patient denies exposure to infectious person. Patient denies travel to an Ebola-affected area in the 21 days before illness onset. No symptoms or risks identified at this time. Initial Sepsis Screen: Does the patient meet any 2 criteria? Temp <36.0*C (96.8*F)) or > 38.3*C (100.9*F). HR > 90 bpm. Yes Does the patient have a suspected source of infection? Yes: Productive cough/pneumonia. Risk Assessment: Do you want to hurt yourself or someone else? Patient reports no desire to harm self or others. Onset of symptoms was November 20, 2020. 21:59 Method Of Arrival: Ambulatory ca1 21:59 Acuity: GIGI 2 ca1 Historical: - Allergies: 22:02 NKA; ca1 - Home Meds: 22:02 losartan 100 mg Oral cap 1 tab once daily [Active]; metoprolol tartrate 50 mg Oral cap ca1 1 tab 2 times per day [Active]; Simvastatin Oral [Active]; hydrochlorothiazide 12.5 mg Oral cap 1 cap once daily [Active]; - PMHx: 22:02 abdominal hernia; Hyperlipidemia; Hypertension; ca1 - PSHx: 22:02 Tonsillectomy; Appendectomy; ca1 - Immunization history:: Flu vaccine is not up to date. - Social history:: Smoking status: Patient reports the use of cigarette tobacco products, smokes one-half pack cigarettes per day. Screenin:30 Abuse screen: Denies threats or abuse. Denies injuries from another. Nutritional sg screening: No deficits noted. Tuberculosis screening: No symptoms or risk factors identified. Fall Risk None identified. Assessment: 22:30 General: Appears in no apparent distress. comfortable, well groomed, well developed, sg well nourished, Behavior is calm, cooperative, appropriate for age. Pain: Denies pain. Neuro: Level of Consciousness is awake, alert, obeys commands, Oriented to person, place, time, situation, Gait is steady, Speech is normal, Facial symmetry appears normal. Cardiovascular: Patient's skin is warm and dry. Chest pain is denied. Respiratory: Reports cough that is non-productive, dry, persistent Airway is patent Respiratory effort is even, unlabored, Respiratory pattern is regular, symmetrical. GI: No signs and/or symptoms were reported involving the gastrointestinal system. : No signs and/or symptoms were reported regarding the genitourinary system. EENT: Nares are clear bilaterally Oral mucosa is moist. Throat is pink. Derm: Skin is pink, warm \\T\\ dry. Musculoskeletal: Circulation, motion, and sensation intact. Range of motion: intact in all extremities. 23:30 Reassessment: Patient appears in no apparent distress at this time. Patient and/or sg family updated on plan of care and expected duration. Pain level reassessed. Patient is alert, oriented x 3, equal unlabored respirations, skin warm/dry/pink. states " I think my fever is broken, Im sweating and feeling better" Patient states feeling better. 11/21 00:20 Reassessment: Patient appears in no apparent distress at this time. pt verbalizes " I sg am really pissed off about this COVID result man. If the cocksuckers in this [facility] could wear their fucking masks and do like they are supposed to we wouldn't even be having this conversation right now." verbal reassurance given, pt referred to CDC guidelines for COVID quarantine, pt stated understanding, pt pending dispo at this time. Vital Signs: 11/20 21:59 BP 154 / 102; Pulse 128; Resp 19 S; Temp 103.2(O); Pulse Ox 95% on R/A; Weight 139.71 ca1 kg (R); Height 5 ft. 11 in. (180.34 cm) (R); Pain 0/10; 23:38 BP 142 / 87; Pulse 108; Resp 18; Temp 100.9; Pulse Ox 95% ; sg 11/21 00:38 BP 138 / 77; Pulse 89; Resp 18; Temp 98.9(TE); Pulse Ox 97% on R/A; Pain 0/10; sg 11/20 21:59 Body Mass Index 42.96 (139.71 kg, 180.34 cm) ca1 ED Course: 11/20 21:54 Patient arrived in ED. bp1 22:02 Triage completed. ca1 22:02 Arm band placed on right wrist. ca1 22:15 Inserted saline lock: 20 gauge in right antecubital area, using aseptic technique. ca1 Blood collected. 22:15 Initial lab(s) drawn, by id, sent to lab. First set of blood cultures drawn by id. ca1 22:16 Kei Joe, JOSÉ is Primary Nurse. sg 22:28 Justin Lewis PA is PHCP. [facility] 22:28 Jaspreet Huber MD is Attending Physician. [facility] 22:30 Patient has correct armband on for positive identification. Bed in low position. Call sg light in reach. Side rails up X2. 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 Pulse ox on. NIBP on. Head of bed elevated. 23:50 Chest Single View XRAY In Process Unspecified. EDMS 11/21 00:30 No provider procedures requiring assistance completed. IV discontinued, intact, sg bleeding controlled, No redness/swelling at site. Pressure dressing applied. Administered Medications: 11/20 22:18 Drug: Tylenol 1000 mg Route: PO; ca1 23:38 Follow up: Response: No adverse reaction; Temperature is decreased sg 11/21 00:30 Drug: Decadron 10 mg Route: IM; Site: right deltoid; sg Outcome: 00:31 Discharge ordered by . [facility] 00:42 Patient left the ED. sg 00:42 Discharged to home ambulatory. sg 00:42 Condition: good 00:42 Discharge instructions given to patient, Instructed on discharge instructions, follow up and referral plans. no drinking with medication, no driving heavy equipment, medication usage, safety practices, Demonstrated understanding of instructions, follow-up care, medications, Prescriptions given X 3. Signatures: Dispatcher [employer] Kei Whaley RN RN sg Mickail, Joel, PA PA jmm Acob, Cheryl, RN RN [facility] Kasia Elena
[2020-11-21] MEDS ORDERED: dexAMETHasone 10 MG/ML VIAL ONE (00:49)
[2020-11-21 05:51] VITALS: O2SAT 95
[2020-11-21 05:53] VITALS: BP 142/87; TEMP 100.9
--- NOTE | 2020-11-21 11:06 | RAD REPORT ---
EXAM DESCRIPTION: RAD - Chest Single View - 11/20/2020 11:50 pm CLINICAL HISTORY: 35-year-old male with fever and cough. TECHNIQUE: Single view, AP portable chest was obtained. COMPARISON: None. FINDINGS: Unremarkable cardiac and mediastinal silhouette. Heart size is mildly prominent, however m ay be exaggerated by low lung volumes and portable technique. Faint opacification at the level of the RIGHT lower lobe may be secondary to subsegmental atelectasis or consolidation/infectious process. Please correlate with patient clinical findings and follow-up f or resolution. Low lung volumes otherwise grossly clear without focal opacity, pneumothorax or pleural effusions. The visualized bones are within normal limits. IMPRESSION: Faint opacification at the level of the RIGHT lower lobe may be secondary to subsegmenta l atelectasis or consolidation/infectious process. Please correlate with patient clinical findings an d follow-up for resolution. Electronically signed by: Yaa Wilson MD 11/20/2020 11:57 PM [employer] Due to temporary technical issues with the PACS/Fluency reporting system, reports are being signed by the in house radiologist without review as a courtesy to ensure prompt reporting. The interpreting r adiologist is fully responsible for the content of the report.
== END 2020-11-21 00:42 | disposition home or self-care (01) ==
LOC: ER 21:51
DX: U07.1 COVID-19 (principal); I10 Essential (primary) hypertension; E78.5 Hyperlipidemia, unspecified; F17.210 Nicotine dependence, cigarettes, uncomplicated
CPT/HCPCS: 0240U; 71045; 96372; 99284; J1100

== ENCOUNTER 2020-11-27 15:51 | Emergency (ER) | payer OTHER, SELFPAY ==
--- OUTSIDE RECORDS SUMMARY | 2020-11-27 15:53 | XMS REPORT | Continuity of Care Document ---
:1975 Author Organization [facility] t Address [address] [place] [address] [place] [id number] Care Team Providers Name Role Phone Benedicto [...] 2019-06-14 2019-06-14 Telephone Talib JOHN [id number] 00:00:00 00:00:00 Jean Paul Gregory [id number] [place] [id number] essyesika [phone] nal 092 Building 2019-06-08 2019-06-08 Office Talib, JOHN [id number] 09:36:26 11:23:11 Visit Jean Paul Gregory [id number] [place] [id number] Professio [phone] nal 092 [facility] Results This patient has no known results.
--- NOTE | 2020-11-27 17:20 | RAD REPORT ---
EXAM DESCRIPTION: RAD - Chest Single View - 11/27/2020 4:59 pm CLINICAL HISTORY: COUGH Chest pain. COMPARISON: Chest Single View dated 11/20/2020; Chest Single View dated 11/19/2019; Chest Single View dated 10/21/2019; Chest Pa And Lat (2 Views) dated 09/27/2019 FINDINGS: Portable technique limits examination quality. Slight right midlung pulmonary opacity is noted which may represent infection. The heart is upper vazquez it of normal in size. No displaced fractures.
[2020-11-27 17:40] LABS: Absolute Lymphocytes (CBC) 0.8 K/uL (0.7-4.9); Basophils % 0.4 % (0-1.3); Hematocrit 45.6 % (39.6-49.0); Lymphocytes % 18.7 % (15.3-44.8); MPV 8.6 fL (7.6-11.3); RBC Red Blood Cell Count 5.47 M/uL (4.33-5.43)
[2020-11-27 17:48] LABS: Protime INR 1.15
[2020-11-27] MEDS ORDERED: BENZONATATE 100 MG CAP PO ONE (17:50)
[2020-11-27] MEDS ORDERED: FAMOTIDINE 20 MG/2 ML VIAL IV ONE (17:51)
[2020-11-27] MEDS ORDERED: ONDANSETRON 4 MG/2 ML VIAL ONE (17:51)
[2020-11-27] MEDS ORDERED: NA CHLORIDE 0.9% 1,000 ML ONE (17:51)
[2020-11-27 17:58] LABS: ALT/SGPT 68 U/L (12-78); AST/SGOT 36 U/L (15-37); Albumin 3.3 g/dL (3.4-5.0); Alkaline Phosphatase 58 U/L (45-117); BUN Blood Urea Nitrogen 9 mg/dL (7-18); Bicarbonate 25 mmol/L (21-32); Bilirubin Direct 0.1 mg/dL (0-0.2); Bilirubin Total 0.5 mg/dL (0.2-1.0); Glucose Level 85 mg/dL (74-106); NT PRO-BNP 31 pg/mL (<125); Potassium 3.5 mmol/L (3.5-5.1); Protein, Total 7.1 g/dL (6.4-8.2); Sodium Level 137 mmol/L (136-145); Troponin (Emerg Dept Use Only) < 0.02 ng/mL (0.0-0.045)
--- NOTE | 2020-11-27 19:18 | RAD REPORT ---
EXAM DESCRIPTION: CT - Chest For Pe Angio - 11/27/2020 7:08 pm CLINICAL HISTORY: Chest pain. Cough;SOB COMPARISON: No comparisons TECHNIQUE: CT angiogram of the pulmonary arteries was performed with MIP. All CT scans are performed using dose optimization technique as appropriate and may include automated exposure control or mA/KV adjustment according to patient size. FINDINGS: No evidence of pulmonary thromboembolism. No acute aortic finding demonstrated. Mild infiltrate is present in the posterior right upper lobe and right lower lobe most compatible wit h infection/pneumonia. No significant pericardial or pleural fluid. No concerning bony finding. IMPRESSION: No evidence of pulmonary thromboembolism. Mild infection/ pneumonia pattern seen in the posterior right upper lobe and right lower lobe.
--- NOTE | 2020-11-27 20:06 | ER ---
Nurse's Notes [facility] Name: Toro Mcghee Age: 45 yrs Sex: Male : 1975 Arrival Date: 11/27/2020 Time: 15:52 Bed 19 Private MD: Diagnosis: Pneumonia due to other specified infectious organisms-due to Coronavirus Presentation: 11/27 15:57 Chief complaint: Patient states: Covid positive for 1 week. Started having SOB with ll1 chest discomfort for 2 days. Coronavirus screen: Client denies travel out of the [place] in the last 14 days. congestion, cough unrelated to allergies, difficulty breathing, fatigue, fever, Client presents with at least one sign or symptom that may indicate coronavirus-19. Standard/surgical mask placed on the client. Ebola Screen: Patient denies travel to an Ebola-affected area in the 21 days before illness onset. Initial Sepsis Screen: Does the patient meet any 2 criteria? HR > 90 bpm. No. Patient's initial sepsis screen is negative. Does the patient have a suspected source of infection? Yes: Productive cough/pneumonia. Risk Assessment: Do you want to hurt yourself or someone else? Patient reports no desire to harm self or others. Onset of symptoms was November 21, 2020. 15:57 Method Of Arrival: Ambulatory ll1 15:57 Acuity: GIGI 3 ll1 Historical: - Allergies: 15:58 NKA; ll1 - PMHx: 15:58 abdominal hernia; Hyperlipidemia; Hypertension; ll1 - PSHx: 15:58 Tonsillectomy; Appendectomy; ll1 - Immunization history:: Flu vaccine is not up to date. - Social history:: Smoking status: Patient reports the use of cigarette tobacco products, smokes one-half pack cigarettes per day. Screenin:30 Abuse screen: Denies threats or abuse. Denies injuries from another. Nutritional dm14 screening: No deficits noted. Tuberculosis screening: No symptoms or risk factors identified. Fall Risk None identified. Assessment: 18:25 General: Appears in no apparent distress. comfortable, obese, Behavior is calm, dm14 cooperative, appropriate for age. 19:18 Pain: Denies pain. Cardiovascular: Rhythm is regular. Respiratory: Airway is patent dm14 Respiratory effort is even, assessed by provider. 19:26 General: Appears in no apparent distress. comfortable, Behavior is calm, cooperative, jb4 appropriate for age. Pain: Denies pain. Neuro: Level of Consciousness is awake, alert, obeys commands, Oriented to person, place, time, situation. Cardiovascular: Patient's skin is warm and dry. Respiratory: Airway is patent Respiratory effort is even, unlabored, Respiratory pattern is regular, symmetrical, Denies shortness of breath at rest. GI: Abdomen is round non-distended, obese, Reports abdominal cramping. : No signs and/or symptoms were reported regarding the genitourinary system. EENT: No signs and/or symptoms were reported regarding the EENT system. Derm: Skin is intact, Skin is pink, warm \T\ dry. Musculoskeletal: Circulation, motion, and sensation intact. Range of motion: intact in all extremities. 20:07 Reassessment: Patient appears in no apparent distress at this time. Patient and/or jb4 family updated on plan of care and expected duration. Pain level reassessed. Patient is alert, oriented x 3, equal unlabored respirations, skin warm/dry/pink. Pt maintained an O2 sat of 98 on RA while ambulating and a heart rate of 108. Provider notified. Vital Signs: 15:57 BP 131 / 82; Pulse 118; Resp 18; Temp 99.9; Pulse Ox 96% ; Weight 136.08 kg; Height 5 ll1 ft. 11 in. (180.34 cm); Pain 5/10; 17:00 BP 121 / 84; Pulse 85; Resp 20; Pulse Ox 97% ; dm14 17:30 BP 122 / 75; Pulse 78; Resp 20; Pulse Ox 98% ; dm14 18:25 BP 109 / 78; Pulse 72; Resp 18; dm14 19:20 BP 103 / 74; Pulse 74; Resp 16; Pulse Ox 95% on R/A; jb4 15:57 Body Mass Index 41.84 (136.08 kg, 180.34 cm) ll1 ED Course: 15:52 Patient arrived in ED. as 15:58 Triage completed. ll1 15:59 Arm band placed on. ll1 16:28 Ijeoma Fernandes, JOSÉ is Primary Nurse. dm14 16:28 Jaspreet Miranda PA is PHCP. cp 16:29 James Benedict MD is Attending Physician. cp 16:59 XRAY Chest (1 view) In Process Unspecified. EDMS 17:30 Patient has correct armband on for positive identification. Bed in low position. Call dm14 light in reach. Side rails up X 1. 17:30 Inserted saline lock:. dm14 18:54 Inserted saline lock: 20 gauge in left antecubital area, using aseptic technique. jl7 19:07 CT Chest For PE Angio In Process Unspecified. EDMS 20:17 No provider procedures requiring assistance completed. IV discontinued, intact, jb4 bleeding controlled, No redness/swelling at site. Pressure dressing applied. Administered Medications: 17:45 Drug: NS 0.9% 500 ml Route: IV; Rate: bolus; Site: left hand; dm14 19:17 Follow up: IV Intake: 1000ml dm14 17:45 Drug: Zofran (Ondansetron) 4 mg Route: IVP; Site: left hand; dm14 19:17 Follow up: Response: No adverse reaction dm14 17:45 Drug: Pepcid 20 mg Route: IVP; Site: left hand; dm14 19:16 Follow up: Response: No adverse reaction dm14 17:45 Drug: Tessalon Perle 200 mg Route: PO; dm14 19:16 Follow up: Response: No adverse reaction dm14 20:00 Drug: SOLU-Medrol 125 mg Route: IVP; Site: left hand; jb4 20:07 Follow up: Response: No adverse reaction jb4 20:01 Drug: Rocephin 1 grams Route: IV; Rate: calculated rate; Site: left hand; jb4 20:05 Follow up: Response: No adverse reaction; IV Status: Completed infusion; IV Intake: [id number] Intake: 19:17 IV: 1000ml; Total: 1000ml. dm14 20:05 IV: 10ml; Total: 1010ml. jb4 Outcome: 20:05 Discharge ordered by . cp 20:17 Discharged to home ambulatory. jb4 20:17 Condition: stable 20:17 Discharge instructions given to patient, Instructed on discharge instructions, follow up and referral plans. medication usage, Demonstrated understanding of instructions, follow-up care, medications, Prescriptions given X 3. 20:17 Patient left the ED. jb4 Signatures: Dispatcher [employer] EDMS Vani Anderson Corey, PA PA cp Bryson, James, RN RN jb4 Radha Adams, RN RN jl7 Joni Sanz RN RN ll1 Ijeoma Fernandes RN RN dm14 Corrections: (The following items were deleted from the chart) 19: 18:25 BP 122 / 75; Pulse 78bpm; Resp 20bpm; Pulse Ox 98%; dm14 dm14 19: 18:25 BP 121 / 84; Pulse 85bpm; Resp 20bpm; Pulse Ox 97%; dm14 dm14
--- NOTE | 2020-11-27 20:06 | EDPHYS ---
Physician Documentation [facility] Name: Toro Mcghee Age: 45 yrs Sex: Male : 1975 Arrival Date: 11/27/2020 Time: 15:52 Bed 19 Private MD: ED Physician James Benedict HPI: 11/27 16:50 This 45 yrs old Male presents to ER via Ambulatory with complaints of cp Shortness Of Breath - covid+. 16:50 The patient has shortness of breath with light activity. Onset: The symptoms/episode cp began/occurred 2 day(s) ago. Associated signs and symptoms: Pertinent positives: non-productive cough, chest pain with cough, Pertinent negatives: diaphoresis, dizziness, fever, vomiting. Severity of symptoms: in the emergency department the symptoms are unchanged despite home interventions. Patient reports being diagnosed with COVID-19 last week and finishing course of prescribed antibiotics and oral steroids. Patient reports continued cough, shortness of breath worse with exertion over past 2 days. Historical: - Allergies: 15:58 NKA; ll1 - PMHx: 15:58 abdominal hernia; Hyperlipidemia; Hypertension; ll1 - PSHx: 15:58 Tonsillectomy; Appendectomy; ll1 - Immunization history:: Flu vaccine is not up to date. - Social history:: Smoking status: Patient reports the use of cigarette tobacco products, smokes one-half pack cigarettes per day. ROS: 17:00 Constitutional: Negative for body aches, chills, fever, poor PO intake. cp 17:00 Eyes: Negative for injury, pain, redness, and discharge. cp 17:00 ENT: Negative for ear pain, sore throat, difficulty swallowing, difficulty handling secretions. 17:00 Cardiovascular: Positive for chest pain, with cough, Negative for edema, palpitations. 17:00 Respiratory: Positive for cough, "sounds productive", shortness of breath, on exertion. Negative for wheezing. 17:00 Abdomen/GI: Negative for abdominal pain, nausea, vomiting, and diarrhea. 17:00 Skin: Negative for rash. 17:00 Neuro: Negative for altered mental status, dizziness, headache, syncope, weakness. 17:00 All other systems are negative. Exam: 17:05 Constitutional: The patient appears in no acute distress, alert, awake, cp non-diaphoretic, non-toxic, well developed, well nourished, obese. 17:05 Head/Face: Normocephalic, atraumatic. cp 17:05 Eyes: Periorbital structures: appear normal, Conjunctiva: normal, no exudate, no injection, Sclera: no appreciated abnormality, Lids and lashes: appear normal, bilaterally. 17:05 ENT: External ear(s): are unremarkable, Nose: is normal, Mouth: Lips: moist, Oral mucosa: pink and intact, moist, Posterior pharynx: is normal, airway is patent, no erythema, no exudate. 17:05 Neck: ROM/movement: is normal, is supple, without pain, no range of motions limitations, no meningismus. 17:05 Chest/axilla: Inspection: normal, Palpation: is normal, no crepitus, no tenderness. 17:05 Cardiovascular: Rate: normal, Rhythm: regular, Edema: is not appreciated, JVD: is not appreciated. 17:05 Respiratory: the patient does not display signs of respiratory distress, Respirations: normal, no use of accessory muscles, no retractions, labored breathing, is not present, Breath sounds: bronchial sounds, that are mild, are heard diffusely, stridor, is not appreciated, wheezing: is not appreciated. 17:05 Abdomen/GI: Exam negative for discomfort, distension, guarding, Inspection: abdomen appears normal. 17:05 Back: pain, is absent, ROM is normal. 17:05 Neuro: Orientation: to person, place \\T\\ time. Mentation: is normal. 18:05 ECG was reviewed by the Attending Physician. cp Vital Signs: 15:57 BP 131 / 82; Pulse 118; Resp 18; Temp 99.9; Pulse Ox 96% ; Weight 136.08 kg; Height 5 ll1 ft. 11 in. (180.34 cm); Pain 5/10; 17:00 BP 121 / 84; Pulse 85; Resp 20; Pulse Ox 97% ; dm14 17:30 BP 122 / 75; Pulse 78; Resp 20; Pulse Ox 98% ; dm14 18:25 BP 109 / 78; Pulse 72; Resp 18; dm14 19:20 BP 103 / 74; Pulse 74; Resp 16; Pulse Ox 95% on R/A; jb4 15:57 Body Mass Index 41.84 (136.08 kg, 180.34 cm) ll1 MDM: 16:32 Patient medically screened. cp 17:00 Differential diagnosis: Bronchitis CHF exacerbation, Myocardial Infarction pneumonia, cp Pneumothorax pulmonary edema, Pulmonary Embolism Sepsis Unstable Angina respiratory failure. 20:05 Data reviewed: vital signs, nurses notes, lab test result(s), EKG, radiologic studies, cp CT scan, plain films. 20:05 Test interpretation: by ED physician or midlevel provider: ECG, plain radiologic cp studies. 20:05 ED course: VSS. Patient maintains oxygen sats above 95% while ambulating. No signs of cp respiratory distress and patient does not appear toxic. Will discharge to home for continued monitoring. 11/27 16:43 Order name: Basic Metabolic Panel; Complete Time: 18:19 cp 03/04 19:51 Interpretation: Normal except: CA 8.2. cp / 16:43 Order name: CBC with Diff; Complete Time: 18:19 cp /04 19:51 Interpretation: Normal except: RBC 5.47; MCV 83.3. cp / 16:43 Order name: LFT's; Complete Time: 18:19 cp /04 16:43 Order name: Magnesium; Complete Time: 18:19 cp /04 16:43 Order name: NT PRO-BNP; Complete Time: 18:19 cp 03/04 16:43 Order name: PT-INR; Complete Time: 19:37 cp /04 16:43 Order name: Troponin (emerg Dept Use Only); Complete Time: 18:19 cp / 16:43 Order name: XRAY Chest (1 view); Complete Time: 18:19 cp /04 18:23 Order name: D-Dimer; Complete Time: 19:37 EDMS / 18:23 Order name: D-Dimer cp / 18:23 Order name: LAB Add On cp / 18:35 Order name: CT Chest For PE Angio; Complete Time: 19:37 cp / 16:43 Order name: EKG; Complete Time: 16:43 cp / 16:43 Order name: Cardiac monitoring; Complete Time: 18:07 cp / 16:43 Order name: EKG - Nurse/Tech; Complete Time: 18:07 cp / 16:43 Order name: IV Saline Lock; Complete Time: 18:07 cp 04 16:43 Order name: Labs collected and sent; Complete Time: 18:07 cp 04 16:43 Order name: O2 Per Protocol; Complete Time: 18: cp 11/27 16:43 Order name: O2 Sat Monitoring; Complete Time: 18:07 cp EC:05 Rate is 85 beats/min. Rhythm is regular. SC interval is normal. QRS interval is normal. cp T waves are Inverted in lead aVR. Interpreted by me. Reviewed by me. Administered Medications: 17:45 Drug: NS 0.9% 500 ml Route: IV; Rate: bolus; Site: left hand; dm14 19:17 Follow up: IV Intake: 1000ml dm14 17:45 Drug: Zofran (Ondansetron) 4 mg Route: IVP; Site: left hand; dm14 19:17 Follow up: Response: No adverse reaction dm14 17:45 Drug: Pepcid 20 mg Route: IVP; Site: left hand; dm14 19:16 Follow up: Response: No adverse reaction dm14 17:45 Drug: Tessalon Perle 200 mg Route: PO; dm14 19:16 Follow up: Response: No adverse reaction dm14 20:00 Drug: SOLU-Medrol 125 mg Route: IVP; Site: left hand; jb4 20:07 Follow up: Response: No adverse reaction jb4 20:01 Drug: Rocephin 1 grams Route: IV; Rate: calculated rate; Site: left hand; jb4 20:05 Follow up: Response: No adverse reaction; IV Status: Completed infusion; IV Intake: [id number] Disposition: 22:02 Co-signature as Attending Physician, James Benedict MD I agree with the assessment and kdr plan of care. Disposition: 11/27/20 20:05 Discharged to Home. Impression: Pneumonia due to other specified infectious organisms - due to Coronavirus. - Condition is Stable. - Discharge Instructions: Community-Acquired Pneumonia, Adult, COVID-19. - Prescriptions for Augmentin 875- 125 mg Oral Tablet - take 1 tablet by ORAL route every 12 hours for 10 days; 20 tablet. Prednisone 20 mg Oral Tablet - take 2 tablets by ORAL route once daily for 5 days then take 1 tablet daily for 5 days; 15 tablet. Albuterol Sulfate 90 mcg/actuation - inhale 1-2 puff by INHALATION route every 4-6 hours; 1 Inhaler. - Medication Reconciliation Form, Thank You Letter, Antibiotic Education, Prescription Opioid Use form. - Follow up: Private Physician; When: 2 - 3 days; Reason: Worsening of condition. - Problem is new. - Symptoms have improved. Signatures: Dispatcher [employer] EDTN James Benedict MD MD kdr Jaspreet Miranda PA PA cp Yoan Noyola RN RN jb4 Joni Sanz RN RN ll1 Ijeoma Fernandes RN RN dm14 Corrections: (The following items were deleted from the chart) 18:30 18:24 D-Dimer ordered. EDTN EDMS 18:34 18:21 Chest For PE Angio+CT.RAD.BRZ ordered. EDTN EDMS 19:51 19:51 Normal except. cp cp 20:17 20:05 11/27/2020 20:05 Discharged to Home. Impression: Pneumonia due to other specified jb4 infectious organisms - due to Coronavirus. Condition is Stable. Forms are Medication Reconciliation Form, Thank You Letter, Antibiotic Education, Prescription Opioid Use. Follow up: Private Physician; When: 2 - 3 days; Reason: Worsening of condition. Problem is new. Symptoms have improved. cp 11/28 18:42 18:40 ED course: VSS. Patient maintains oxygen sats above 95% while ambulating. No cp signs of respiratory distress and patient does not appear toxic. Will discharge to home for continued monitoring. cp
[2020-11-27] MEDS ORDERED: CEFTRIAXONE/SWI 1gm 1 GM/10 ML SYR ONE (20:07)
[2020-11-27] MEDS ORDERED: METHYLPREDNISOLONE 125 MG INJ ONE (20:07)
[2020-11-27 21:58] VITALS: TEMP 99.9
[2020-11-27 22:03] VITALS: BP 103/74; O2SAT 95
== END 2020-11-27 20:17 | disposition home or self-care (01) ==
LOC: ER 15:51
DX: U07.1 COVID-19 (principal); J12.82 Pneumonia due to coronavirus disease 2019; F17.210 Nicotine dependence, cigarettes, uncomplicated; E78.5 Hyperlipidemia, unspecified; I10 Essential (primary) hypertension
CPT/HCPCS: 36415; 71045; 71275; 80048; 80076; 83735; 83880; 84484; 85025; 85379; 85610; 93005; 96374; 96375; 99284; J0696; J2405; J2930; J7030; Q9967

== ENCOUNTER 2021-04-28 17:21 | Emergency (ER) | payer OTHER ==
--- OUTSIDE RECORDS SUMMARY | 2021-04-28 17:24 | XMS REPORT | Continuity of Care Document ---
:1975 Author Organization [facility] t Address [address] [place] [address] Care Team Providers Name Role Phone Benedicto Mayers MD Attending Clinician Problems This patient has no known problems. Allergies, Adverse Reactions, Alerts This patient has no known allergies or adverse reactions. Medications This patient has no known medications. Procedures This patient has no known procedures. Encounters Start End Encounter Admission Attending Care Care Encounter Source Date/Time Date/Time Type Type Clinicians Facility Department ID 2021-04-23 2021-04-23 Outpatient [facility] [id number] [address] 00:00:00 00:00:00 [facility] 2021-04-07 2021-04-07 Outpatient [facility] [id number] 00:00:00 [facility]00:00 [facility] 2021-03-16 2021-03-16 Outpatient [facility] [id number] 00:00:00 [facility]00:00 [facility] 2021-03-12 2021-03-12 Outpatient [facility] [id number] 00:00:00 00[facility]00:00 [facility] 2021-03-03 2021-03-03 Outpatient [facility] [id number] [facility] 00:00:00 00:00:00 [facility] 2021-02-20 2021-02-20 Outpatient [facility] [id number] [facility] 2021-02-18 2021-02-18 Outpatient [facility] [id number] [facility] 2021-02-17 2021-02-17 [facility] [id number] [facility] 2021-01-26 2021-01-26 [facility] [id number] [facility] 2019-06-14 2019-06-14 Telephone Talib RUST [id number] 00:00:00 00:00:00 Jean Paul Gregory [id number] [place] [id number] [facility] [phone] [facility] 092 Building 2019-06-08 2019-06-08 Office Talib [id number] 09:36:26 11:23:11 Visit Jean Paul Gregory [id number] [place] [id number] [facility] [phone] [facility] Results This patient has no known results.
--- NOTE | 2021-04-28 19:53 | RAD REPORT ---
EXAM DESCRIPTION: CT - Head C Spine Mpr Wo Con - 04/28/2021 7:40 pm CLINICAL HISTORY: Head and neck COMPARISON: 2018 TECHNIQUE: Computed axial tomography of the head and cervical spine was obtained. Sagittal and coronal reconstruction was performed. All CT scans are performed using dose optimization technique as appropriate and may include automated exposure control or mA/KV adjustment according to patient size. FINDINGS: An intracranial bleed is not seen. The ventricles are normal in caliber. An extra-axial fl uid collection is not noted. Mild to moderate ethmoid sinusitis. Mastoids are clear A cervical fracture is not visualized. No dislocation is noted. Mild spondylosis. No high-grade steno sis seen IMPRESSION: No acute intracranial abnormality is seen. A cervical fracture is not visualized. Mild to moderate ethmoid sinusitis If the patient continues to have symptoms to suggest intracranial /spinal cord/spinal canal pathology then MRI would be recommended
[2021-04-28] MEDS ORDERED: KETOROLAC 30 MG/ML INJ ONE (22:33)
[2021-04-28] MEDS ORDERED: DIPHENHYDRAMINE 50 MG/ML VIAL ONE (22:33)
[2021-04-28] MEDS ORDERED: METOCLOPRAMIDE 10 MG/2mL INJ ONE (22:33)
--- NOTE | 2021-04-28 22:33 | ER ---
Nurse's Notes [facility] Name: Toro Mcghee Age: 45 yrs Sex: Male : 1975 Arrival Date: 04/28/2021 Time: 17:28 Bed 16 Private MD: Diagnosis: Headache Presentation: 04/28 18:43 Chief complaint: Patient states: "I have neck pain radiating to the right side o f my aa5 head and right eye". Pt also reports high blood pressure reading at home "150/102". Pt reports he was prescribed Sumatriptan but without relief. Coronavirus screen: At this time, the client does not indicate any symptoms associated with coronavirus-19. Ebola Screen: Patient negative for fever greater than or equal to 101.5 degrees Fahrenheit, and additional compatible Ebola Virus Disease symptoms. Initial Sepsis Screen: Does the patient meet any 2 criteria? No. Patient's initial sepsis screen is negative. Does the patient have a suspected source of infection? No. Patient's initial sepsis screen is negative. Risk Assessment: Do you want to hurt yourself or someone else? Patient reports no desire to harm self or others. Onset of symptoms was April 28, 2021. 18:43 Method Of Arrival: Ambulatory aa5 18:43 Acuity: GIGI 3 aa5 Historical: - Allergies: 18:45 NKA; aa5 - Home Meds: 18:45 metoprolol tartrate 50 mg Oral cap 1 tab 2 times per day [Active]; losartan 100 mg Oral aa5 cap 1 tab once daily [Active]; hydrochlorothiazide 12.5 mg Oral cap 1 cap once daily [Active]; - PMHx: 18:45 abdominal hernia; Hyperlipidemia; Hypertension; Enlarged Heart; Migraines since 2020; aa5 - Immunization history:: Client reports having NOT received the Covid vaccine. Flu vaccine is not up to date. - Social history:: Smoking status: Patient reports the use of cigarette tobacco products, smokes one-half pack cigarettes per day. Screenin:34 Abuse screen: Denies threats or abuse. Denies injuries from another. Nutritional ld1 screening: No deficits noted. Tuberculosis screening: No symptoms or risk factors identified. Fall Risk None identified. Assessment: 21:34 General: Appears in no apparent distress. uncomfortable, Behavior is cooperative, ld1 appropriate for age, agitated. Pain: Complains of pain in face and base of the skull Pain radiates to right eye Pain currently is 9 out of 10 on a pain scale. Quality of pain is described as throbbing. Neuro: Level of Consciousness is awake, alert, obeys commands, Oriented to person, place, time, situation. Cardiovascular: Capillary refill < 3 seconds Patient's skin is warm and dry. Respiratory: Airway is patent Respiratory effort is even, unlabored, Respiratory pattern is regular, symmetrical. GI: Abdomen is round non-distended. : No signs and/or symptoms were reported regarding the genitourinary system. EENT: No signs and/or symptoms were reported regarding the EENT system. Derm: No signs and/or symptoms reported regarding the dermatologic system. Musculoskeletal: No signs and/or symptoms reported regarding the musculoskeletal system. Vital Signs: 18:43 BP 164 / 117; Pulse 76; Resp 18 S; Temp 98.6(TE); Pulse Ox 99% on R/A; Weight 148.32 kg aa5 (R); Height 6 ft. 0 in. (182.88 cm) (R); 21:34 BP 149 / 104; Pulse 63; Resp 20; Pulse Ox 98% on R/A; ld1 18:43 Body Mass Index 44.35 (148.32 kg, 182.88 cm) aa5 ED Course: 17:28 Patient arrived in ED. ds1 18:43 Arm band placed on. aa5 18:45 Triage completed. aa5 19:40 Head C Spine Mpr Wo Con In Process Unspecified. EDMS 21:00 Dusty Mathews NP is PHCP. pm1 21:00 Rod Garcia MD is Attending Physician. pm1 21:34 Monica Maria, JOSÉ is Primary Nurse. ld1 21:34 Patient has correct armband on for positive identification. Bed in low position. Call ld1 light in reach. Side rails up X2. Pulse ox on. NIBP on. Door closed. Noise minimized. Warm blanket given. 21:34 No provider procedures requiring assistance completed. ld1 Administered Medications: 22:21 Drug: Ketorolac 30 mg Route: IVP; Site: left antecubital; ld1 22:21 Drug: Reglan (metoCLOPramide) 10 mg Route: IVP; Site: left antecubital; ld1 22:21 Drug: Benadryl (diphenhydrAMINE) 25 mg Route: IVP; Site: left antecubital; ld1 Outcome: 22:32 Discharge ordered by . pm1 22:33 Eloped from patient exam room, after seeing physician ld1 :33 Condition: stable 22:33 Patient left the ED. ld1 Signatures: Dispatcher [employer] EDMS Kamini Trejo ds1 Melisa Mcgrath RN RN aa5 Dusty Mathews, [employer] TRASH COLLECTOR SUPERVISOR pm1 Monica Maria RN RN ld1
--- NOTE | 2021-04-28 22:33 | EDPHYS ---
Physician Documentation [facility] Name: Toro Mcghee Age: 45 yrs Sex: Male : 1975 Arrival Date: 04/28/2021 Time: 17:28 Bed 16 Private MD: ED Physician Rod Garcia HPI: 04/28 21:53 This 45 yrs old Male presents to ER via Ambulatory with complaints of High pm1 Blood Pressure, Migraine. 21:53 The patient complains of pain to the right frontal area, right side of the back of pm1 head, right side of forehead and right occipital area. The patient describes the headache as aching, constant. 21:53 Onset: The symptoms/episode began/occurred 1 week(s) ago. Associated signs and pm1 symptoms: Pertinent positives: elevated blood pressure, Pertinent negatives: fever, neck stiffness. Severity of symptoms: in the emergency department the pain is unchanged. Headache History: The patient has had previous headaches and this one is similar to previous episodes. The symptoms are alleviated by nothing. the symptoms are aggravated by nothing. The patient has not recently seen a physician. Patient reports headache history with similar presentation for multiple months has been evaluated by his PCP for the same headaches. Was prescribed sumatriptan for the same headaches. Medications have not been effective in managing his pain. Historical: - Allergies: 18:45 NKA; aa5 - Home Meds: 18:45 metoprolol tartrate 50 mg Oral cap 1 tab 2 times per day [Active]; losartan 100 mg Oral aa5 cap 1 tab once daily [Active]; hydrochlorothiazide 12.5 mg Oral cap 1 cap once daily [Active]; - PMHx: 18:45 abdominal hernia; Hyperlipidemia; Hypertension; Enlarged Heart; Migraines since 2020; aa5 - Immunization history:: Client reports having NOT received the Covid vaccine. Flu vaccine is not up to date. - Social history:: Smoking status: Patient reports the use of cigarette tobacco products, smokes one-half pack cigarettes per day. ROS: 21:53 Constitutional: Negative for fever, chills, and weight loss, Eyes: Negative for injury, pm1 pain, redness, and discharge, ENT: Negative for injury, pain, and discharge, Neck: Negative for injury, pain, and swelling, Cardiovascular: Negative for chest pain, palpitations, and edema, Respiratory: Negative for shortness of breath, cough, wheezing, and pleuritic chest pain, Abdomen/GI: Negative for abdominal pain, nausea, vomiting, diarrhea, and constipation, MS/Extremity: Negative for injury and deformity, Skin: Negative for injury, rash, and discoloration. 21:53 Neuro: Positive for headache. 21:53 All other systems are negative. Exam: 21:53 Constitutional: This is a well developed, well nourished patient who is awake, alert, pm1 and in no acute distress. 21:53 Back: No spinal tenderness. No costovertebral tenderness. Full range of motion. Skin: Warm, dry with normal turgor. Normal color with no rashes, no lesions, and no evidence of cellulitis. MS/ Extremity: Pulses equal, no cyanosis. Neurovascular intact. Full, normal range of motion. 21:53 Head/face: Noted is no obvious of injury or deformity except tenderness, that is mild, of the right frontal area, right side of the back of head, right side of forehead and right occipital area. 21:53 Eyes: Exam is negative for acute changes, Extraocular movements: no acute changes, Conjunctiva: normal, no injection, no acute changes. 21:53 Cardiovascular: Exam negative for acute changes, Rate: normal, Rhythm: regular, Pulses: no pulse deficits are appreciated. 21:53 Respiratory: Exam negative for acute changes, respiratory distress, shortness of breath. 21:53 Abdomen/GI: Inspection: obese Palpation: abdomen is soft and non-tender, in all quadrants. 21:53 Neuro: Exam negative for acute changes, Orientation: is normal, Mentation: is normal, Motor: is normal, moves all fours, Sensation: is normal, no obvious gross deficits. Vital Signs: 18:43 BP 164 / 117; Pulse 76; Resp 18 S; Temp 98.6(TE); Pulse Ox 99% on R/A; Weight 148.32 kg aa5 (R); Height 6 ft. 0 in. (182.88 cm) (R); 21:34 BP 149 / 104; Pulse 63; Resp 20; Pulse Ox 98% on R/A; ld1 18:43 Body Mass Index 44.35 (148.32 kg, 182.88 cm) aa5 MDM: 21:13 Patient medically screened. pm1 22:30 Data reviewed: vital signs. Data interpreted: Pulse oximetry: on room air is 98 %. pm1 Interpretation: normal. Counseling: I had a detailed discussion with the patient and/or guardian regarding: the historical points, exam findings, and any diagnostic results supporting the discharge/admit diagnosis, radiology results, the need for outpatient follow up, to return to the emergency department if symptoms worsen or persist or if there are any questions or concerns that arise at home. 22:30 ED course: Patient headache completely resolved 0 out of 10 pain. Patient reports that pm1 he wants to go home now does not want to wait for prescription of medication I offered him. 04/28 19:36 Order name: Head C Spine Mpr Wo Con; Complete Time: 21:37 EDMS 04/28 21:53 Order name: IV Saline Lock; Complete Time: 22:21 pm1 Administered Medications: 22:21 Drug: Ketorolac 30 mg Route: IVP; Site: left antecubital; ld1 22:21 Drug: Reglan (metoCLOPramide) 10 mg Route: IVP; Site: left antecubital; ld1 22:21 Drug: Benadryl (diphenhydrAMINE) 25 mg Route: IVP; Site: left antecubital; ld1 Disposition: 04/29 04:22 Co-signature as Attending Physician, Rod Garcia MD. [facility] Disposition Summary: 04/28/21 22:32 Discharge Ordered Location: Home pm1 Problem: new pm1 Symptoms: have improved pm1 Condition: Stable pm1 Diagnosis - Headache pm1 Followup: pm1 - With: Emergency Department - When: As needed - Reason: Worsening of condition Followup: pm1 - With: Private Physician - When: 2 - 3 days - Reason: Recheck today's complaints, Continuance of care, Re-evaluation by your physician Discharge Instructions: - Discharge Summary Sheet pm1 - General Headache Without Cause pm1 - Tension Headache, Adult pm1 Forms: - Medication Reconciliation Form pm1 - Thank You Letter pm1 - Antibiotic Education pm1 - Prescription Opioid Use pm1 Signatures: Dispatcher [employer] EDMS Melisa Mcgrath RN RN aa5 Dusty Mathews, MANAGEMENT DEVELOPER MANAGEMENT DEVELOPER pm1 Rod Garcia MD MD [facility] Monica Maria RN RN ld1 Corrections: (The following items were deleted from the chart) 04/28 19:36 18:54 Head Brain Wo [id number].[id number] ordered. EDMS EDMS
[2021-04-28 22:50] VITALS: TEMP 98.6
[2021-04-28 22:51] VITALS: BP 149/104; O2SAT 98
== END 2021-04-28 22:33 | disposition home or self-care (01) ==
LOC: ER 17:21
DX: R51.9 Headache, unspecified (principal); I10 Essential (primary) hypertension; E78.5 Hyperlipidemia, unspecified; F17.210 Nicotine dependence, cigarettes, uncomplicated
CPT/HCPCS: 70450; 72125; J2765; J1200; 96374; 96375; 99283